=== PATIENT | female | born 1960 | race Two or more races ===

== ENCOUNTER → 2020-08-08 15:16 | Outpatient (BNVA) | payer MEDICARE, MEDICAID, SELFPAY | PROVIDERS: PCP Internal Medicine; Visit Provider Internal Medicine | DX: J44.9 Chronic obstructive pulmonary disease, unspecified (principal); J98.4 Other disorders of lung; R09.02 Hypoxemia; G47.33 Obstructive sleep apnea (adult) (pediatric); E66.9 Obesity, unspecified; Z68.42 Body mass index [BMI] 45.0-49.9, adult; Z79.899 Other long term (current) drug therapy | CPT/HCPCS: 99213 ==

== ENCOUNTER 2020-11-17 14:38 | Outpatient (REF) | payer MEDICARE, MEDICAID, SELFPAY | END 2020-11-17 14:39 | disposition home or self-care (01) | LOC: HO.LAB 14:38 | PROVIDERS: Visit Provider Internal Medicine | DX: Z20.822 Contact with and (suspected) exposure to COVID-19 (principal) | CPT/HCPCS: 36415; C9803; U0003 ==

== ENCOUNTER → 2020-12-12 14:58 | Outpatient (BNVA) | payer MEDICARE, MEDICAID, SELFPAY | PROVIDERS: PCP Internal Medicine; Visit Provider Internal Medicine | DX: J44.9 Chronic obstructive pulmonary disease, unspecified (principal); J98.4 Other disorders of lung; G47.33 Obstructive sleep apnea (adult) (pediatric); R06.02 Shortness of breath; E66.9 Obesity, unspecified; Z68.41 Body mass index [BMI] 40.0-44.9, adult; Z79.899 Other long term (current) drug therapy; Z99.81 Dependence on supplemental oxygen | CPT/HCPCS: 99212 ==

== ENCOUNTER → 2020-12-26 13:26 | Outpatient (REF) | payer MEDICARE, MEDICAID, SELFPAY ==
--- NOTE | 2020-12-26 14:10 | CA_ITS ---
Transthoracic Echocardiogram Patient (Last, First, Middle): Marge Washington D Gender: Female Date of : 1960 Age: 60 Procedure Date: 12/26/2020 Procedure Type: Transthoracic Echocardiogram Location: OP Height: 160.02 cm Weight: 106.6 kg BSA: 2.07 m2 Heart Rate: bpm BP: 128 / 71 mmHg Escapement Matcher: EMANUEL Referring MD: Singh Mccarthy MD Symptoms: I50.9 HEART FAILURE Study Quality: Fair ECG Rhythm: Sinus Conclusions: - The left ventricular systolic function is normal. The visually estimated ejection fraction is between 60-65%. - Evidence suggests grade I (mild) diastolic dysfunction. - The right ventricular systolic pressure is 47 mmHg. Mild pulmonary hypertension is present. Findings Procedure Information Contrast agent, definity, is being given per protocol without apparent complications. Left Ventricle Normal left ventricular cavity size. There is normal left ventricular wall thickness. The left ventricular systolic function is normal. The visually estimated ejection fraction is between 60-65%. There is no evidence of regional wall motion abnormalities. E/E prime ratio is between 8 and 15 consistent with indeterminate filling pressures. Evidence suggests grade I (mild) diastolic dysfunction. Right Ventricle Normal right ventricular cavity size and systolic function. Tricuspid Valve There is mild tricuspid valve regurgitation. The right ventricular systolic pressure is 47 mmHg. Mild pulmonary hypertension is present. Venous The inferior vena cava is normal in size and collapses greater than 50% with inspiration. Prior Study Comparison No prior study available for comparison. Measurements 2D Linear Measurements IVSd: 0.95 0.6-0.9/0.6-1.0 cm LVIDd: 5.46 3.9-5.3/4.2-5.9 cm LVIDd Index: 2.64 2.4-3.2/2.2-3.1 cm/m2 LVIDs: 4.06 2.0-3.6 cm LVPWd: 1.08 0.7-1.1 cm Ao Root: 2.60 2.1-3.5 cm LA Diam: 3.80 2.7-3.8/3.0-4.0 cm LAIDs Index: 1.84 1.5-2.3 cm/m2 LV Mass: 267.37 67-162/88-224 g LV Mass Index: 129.16 43-95/49-115 g/m2 LVOT Diam: 2.20 3.0+(-)1.3 cm 2D Systolic Function EF 4C: 77.00 >55% EF 2C: 62.40 >55% EF BiP: 71.20 >55% Mitral Valve MV Pk E: 1.22 MV PK A: 0.83 MV Decel Time: 121.00 E/A: 1.50 E'Lateral: 9.90 E'Medial: 7.18 E/E' Med: 17.00 E/E' Lat: 12.30 PHT: 36.00 MVA PHT: 6.11 Decel [place]: 10.02 Aortic Valve AoV Pk Fredrick: 1.75 AoV Pk Grad: 12.00 LVOT LVOT Pk Fredrick: 1.37 LVOT Mn Fredrick: 0.87 LVOT VTI: 0.27 LVOT Pk Grad: 8.00 LVOT Mn Grad: 4.00 LVOT Diam: 2.20 LVOT Area: 3.80 Diastolic Function MV Pk E: 1.22 MV Pk A: 0.83 E/A: 1.50 E'Medial: 7.18 E/E' Med: 17.00 E' Laterial: 9.90 E/E' Lat: 12.30 Tricuspid Valve TR Pk Fredrick: 3.29 TR Pk Grad: 43.00 RVSP: 47.00 Great Vessels Aorta Ao Root-2D: 2.60 2.0-3.7 cm Ao Asc: 2.80 2.1-3.4 cm Updated in Other Vendor System with Status of Final Andrés Corrales MD electronically signed on 12/27/2020 4:36:12 PM with status of Final
== END ==
LOC: HO.CARD 13:26
PROVIDERS: Visit Provider Internal Medicine Cardiovascular Disease
DX: I50.9 Heart failure, unspecified (principal)
CPT/HCPCS: 93308; Q9957

== ENCOUNTER 2021-01-22 09:38 | Outpatient (REF) | payer MEDICARE, MEDICAID, SELFPAY ==
[2021-01-22 14:16] LABS: SARS COV2 PCR INHOUSE NEGATIVE (Negative)
== END 2021-01-22 09:39 | disposition home or self-care (01) ==
LOC: HO.LAB 09:38
PROVIDERS: Visit Provider Internal Medicine
DX: Z20.822 Contact with and (suspected) exposure to COVID-19 (principal)
CPT/HCPCS: C9803; U0003

== ENCOUNTER 2021-03-26 11:22 | Outpatient (REF) | payer MEDICARE, MEDICAID, SELFPAY ==
--- NOTE | ~2021-03-26 | MM_ITS ---
EXAMINATION: MM SCREENING DIGITAL BREAST TOMOSYNTHESIS, BILATERAL CLINICAL INFORMATION: Screening. Asymptomatic. The lifetime risk of breast cancer based on the Tyrer-Cuzick Model is 8%. COMPARISON: Mammography: 04/27/2019, 04/30/2017, 09/22/2015 TECHNIQUE: Digital breast tomosynthesis is performed in both the craniocaudal and mediolateral oblique views along with computer-aided detection (CAD). Synthesized 2D images are generated from the tomosynthesis. Additional views are provided: Right CC x2, right MLO, left MLO, left CC x2. FINDINGS: There are scattered areas of fibroglandular density (ACR BI-RADS breast composition Category b). Parenchymal pattern is similar to prior exams. There is no significant mass or architectural abnormality or abnormal calcifications. The axilla and skin contours are unremarkable. There are no significant changes. MM/MM tomosynthesis screening BI IMPRESSION: No mammographic evidence of malignancy. ASSESSMENT: BI-RADS 1: Negative RECOMMENDATION: Routine annual mammography screening. This patient's information was entered into a reminder system with a target due date for their next mammogram.
== END 2021-03-26 11:23 | disposition home or self-care (01) ==
LOC: HO.MAMMO 11:22
PROVIDERS: Visit Provider Internal Medicine
DX: Z12.31 Encounter for screening mammogram for malignant neoplasm of breast (principal)
CPT/HCPCS: 77063; 77067

== ENCOUNTER → 2021-05-14 13:17 | Outpatient (BNVA) | payer MEDICARE, MEDICAID, SELFPAY | PROVIDERS: PCP Internal Medicine; Visit Provider Internal Medicine | DX: E66.9 Obesity, unspecified (principal); G47.33 Obstructive sleep apnea (adult) (pediatric); J44.9 Chronic obstructive pulmonary disease, unspecified; J98.4 Other disorders of lung; R09.02 Hypoxemia | CPT/HCPCS: 99212 ==

== ENCOUNTER → 2021-11-12 14:21 | Outpatient (BNVA) | payer MEDICARE, MEDICAID, SELFPAY | PROVIDERS: PCP Internal Medicine; Visit Provider Internal Medicine | DX: J44.9 Chronic obstructive pulmonary disease, unspecified (principal); J98.4 Other disorders of lung; E66.9 Obesity, unspecified; G47.33 Obstructive sleep apnea (adult) (pediatric); R09.02 Hypoxemia; Z68.41 Body mass index [BMI] 40.0-44.9, adult | CPT/HCPCS: 99212 ==

== ENCOUNTER 2022-04-04 08:57 | Outpatient (REF) | payer MEDICARE, MEDICAID, SELFPAY ==
--- NOTE | ~2022-04-04 | MM_ITS ---
EXAMINATION: MM SCREENING DIGITAL BREAST TOMOSYNTHESIS, BILATERAL CLINICAL INFORMATION: Screening. Asymptomatic. The lifetime risk of breast cancer based on the Tyrer-Cuzick Model is 8%. COMPARISON: Mammography: 03/30/2021, 04/27/2019, 04/30/2017 TECHNIQUE: Digital breast tomosynthesis is performed in both the craniocaudal and mediolateral oblique views along with computer-aided detection (CAD). Synthesized 2D images are generated from the tomosynthesis. Additional bilateral exaggerated CC and bilateral MLO views are provided. FINDINGS: There are scattered areas of fibroglandular density (ACR BI-RADS breast composition Category b). There are no significant masses, abnormal calcifications, or other abnormalities. Background stromal and fibroglandular densities are stable. No developing density or architectural abnormality. No significant changes. MM/MM tomosynthesis screening BI IMPRESSION: No mammographic evidence of malignancy. ASSESSMENT: BI-RADS 2: Benign RECOMMENDATION: Routine annual mammography screening. This patient's information was entered into a reminder system with a target due date for their next mammogram.
[2022-04-04 10:34] LABS: Alanine Aminotransferase 14 U/L (0-31); Aspartate Amino Transferase 17 U/L (5-31); Cholesterol 234 mg/dL; HDL Cholesterol 56 mg/dL; LDL Cholesterol Calculated 161 mg/dl; Triglycerides 88 mg/dL
== END 2022-04-04 08:58 | disposition home or self-care (01) ==
LOC: HO.MAMMO 08:57
PROVIDERS: Absent Provider Internal Medicine Cardiovascular Disease; PCP Internal Medicine; Visit Provider Internal Medicine
DX: Z12.31 Encounter for screening mammogram for malignant neoplasm of breast (principal); E78.5 Hyperlipidemia, unspecified
CPT/HCPCS: 36415; 77063; 77067; 80061; 84450; 84460

== ENCOUNTER 2022-05-13 13:31 | Outpatient (REF) | payer MEDICARE, MEDICAID, SELFPAY ==
[2022-05-13 14:25] LABS: COVID-19 Test Negative (Negative)
== END 2022-05-13 13:32 | disposition home or self-care (01) ==
LOC: HO.LAB 13:31
PROVIDERS: Visit Provider Internal Medicine
DX: Z20.822 Contact with and (suspected) exposure to COVID-19 (principal)
CPT/HCPCS: 87635; 99212; C9803

== ENCOUNTER 2022-10-28 12:07 | Emergency (ER) | payer MEDICARE, MEDICAID, SELFPAY ==
--- NOTE | ~2022-10-28 | XR_ITS ---
EXAMINATION: XR CHEST CLINICAL INFORMATION: Cough. COMPARISON: Chest x-ray 11/03/2018 TECHNIQUE: Frontal portable view of the chest was obtained. 1445 hours FINDINGS: Rounded masslike density in the right upper lung measuring 2.8 cm. Similar-appearing masslike density in the left peripheral mid lung measuring about [address] chest with contrast for further evaluation. Heart size is enlarged and stable since prior study. No pulmonary vascular congestion. No pleural effusion. XR/XR chest 1V IMPRESSION: 1. Masslike densities in both lungs. 2. Cardiomegaly. No pulmonary vascular congestion. No pleural effusion.
[2022-10-28 12:17] VITALS: BP 114/67; BP 116/58; PULSE 60; PULSE 61; RESP 20; TEMP 36.9; O2SAT 82; O2SAT 89; BMI 46.5
[2022-10-28 12:29] VITALS: O2SAT 94
[2022-10-28] MEDS: Benzonatate 100 MG CAPSULE PO (13:05)
[2022-10-28] MEDS: predniSONE 20 MG TABLET 60 MG PO (13:05)
--- NOTE | 2022-10-28 13:12 | ED.ASTHMA ---
HPI - Asthma General Chief Complaint: Upper Respiratory Symptoms Stated Complaint: SOB FROM MD OFFICE PER EMS Time Seen by Provider: 10/28/22 12:53 Source: patient and EMS Mode of arrival: EMS Limitations: no limitations History of Present Illness HPI Narrative: 62-year-old female history of COPD who states she still does smoke at times. Went to her doctor's office for worsening shortness of breath for the past 3 days. Patient found to be in the 80s on room air was given 1 breathing treatment and improved to 99%. On arrival here patient is on 2 L at 99%. Patient denies fevers or chills she states she is not vaccinated for COVID flu. She denies any falls MD complaint: asthma attack , shortness of breath and wheezing Related Data Home Medications Medication Instructions Recorded Confirmed aspirin 81 mg tablet,delayed 81 mg PO DAILY 08/08/20 05/13/22 release cholecalciferol (vitamin D3) 50 50 mcg PO DAILY 08/08/20 05/13/22 mcg (2,000 unit) tablet docusate sodium 100 mg capsule 100 mg PO BID PRN 08/08/20 05/13/22 furosemide 40 mg tablet 120 mg PO DAILY 08/08/20 05/13/22 levothyroxine 100 mcg tablet 100 mcg PO DAILY 08/08/20 05/13/22 paliperidone palmitate 234 mg/1.5 234 mg IM Q28D 08/08/20 05/13/22 mL intramuscular syringe perphenazine 4 mg tablet 4 mg PO DAILY 08/08/20 05/13/22 sertraline 50 mg tablet 50 mg PO DAILY 08/08/20 05/13/22 albuterol sulfate 2.5 mg/3 mL 2.5 mg inhalation Q6H 11/12/21 05/13/22 (0.083 %) solution for nebulization albuterol sulfate 90 mcg/actuation 2 puff inhalation Q4-6H PRN 11/12/21 05/13/22 aerosol inhaler (Ventolin HFA) Shortness Of Breath cyanocobalamin (vitamin B-12) 1 tab DAILY 10/28/22 1,000 mcg tablet (Vitamin B-12) potassium chloride 20 mEq 2 tab PO DAILY 10/28/22 tablet,extended release Previous Rx's Medication Instructions Recorded fluticasone 250 mcg-salmeterol 50 1 inh inhalation BID #60 ea 02/05/22 mcg/dose blistr powdr for inhalation Allergies Allergy/AdvReac Type Severity Reaction Status Date / Time potassium Allergy Unknown Unknown Verified 05/13/22 14:07 Penicillins AdvReac Severe FAINTS Verified 05/13/22 14:07 Review of Systems Review of Systems: Review of systems: General: Patient denies any fever chills recent illness or falls Musculoskeletal: Denies back pain or body aches or other injuries HEENT: denies headache, runny nose, ear pain Respiratory: shortness of breath, cough Cardiovascular: no chest pain or palpitations : denies dysuria, frequency Abdomen: no nausea vomiting denies abdominal pain Extremities: no swelling, no pain Skin: no diaphoresis Yes all other systems are reviewed and are negative PMFSH Past Medical History Medical History COPD (chronic obstructive pulmonary disease) Hypoxemia Obesity FRANKI (obstructive sleep apnea) Restrictive lung disease Surgical History History of cholecystectomy Social History Social History Alcohol intake: never Use of substances other than those prescribed or required for medical reasons: No Advance Directives: No Advance Directives Information Provided: Yes Physical Exam Vital Signs: Vital Signs: Last Vital Signs Temp 98.4 F 10/28/22 12:17 Pulse 61 10/28/22 12:17 Resp 20 10/28/22 12:17 BP 116/58 L 10/28/22 12:17 Pulse Ox 94 10/28/22 12:29 O2 Del Method 10/28/22 12:29 O2 Flow Rate 1 10/28/22 12:29 BMI result Body Mass Index 46.5 General: Well-appearing well-nourished in no signs of distress HEENT: Normocephalic atraumatic Neck: No signs of JVD, no masses no tenderness or lymphadenopathy Cardiovascular: Regular rate and rhythm Respiratory: Wheezing bilaterally Abdomen: Soft nontender no masses Extremities: Normal pedal pulses no signs of edema Skin: Dry warm no rashes Back: No tenderness full ROM Medications Administered Discontinued Medications Generic Name Dose Route Start Last Admin Trade Name Freq PRN Reason Stop Dose Admin Albuterol Sulfate 4 puff 10/28/22 12:57 10/28/22 13:36 Albuterol Sulfate 90 Mcg 8 Gm Inhaler INHALE 10/28/22 12:58 4 puff ONCE ONE Administration Benzonatate 100 mg 10/28/22 12:57 10/28/22 13:05 Benzonatate 100 Mg Capsule PO 10/28/22 12:58 100 mg ONCE ONE Administration Sodium Chloride 1,000 mls @ 999 mls/hr 10/28/22 13:00 10/28/22 13:41 Ns IV 10/28/22 14:00 999 mls/hr .Q1H1M YASH Administration Prednisone 60 mg 10/28/22 12:57 10/28/22 13:05 Prednisone 20 Mg Tablet PO 10/28/22 12:58 60 mg ONCE ONE Administration Medical Decision Making Medical Decision Making [facility] Narrative: Patient here with likely COPD exacerbation given patient's recent treatments and chest x-ray and labs patient already looks much improved after 1 breathing treatment likely noncompliance with her acute oral at home will give another breathing treatment here a chest x-ray and labs. I will swab her for COVID flu and RSV. 1428 Still with significant wheezing she is non compliant with oxygen. She states she is not on oxygen at home. Here she keeps removing it her oxygen is in the 80's when off the oxygen. XR is concerning for a right sided infiltrate I will add on lactic and blood cultures. Patient with obvious infiltrate I will treat for pneumonia with rocephin and doxyclycine. 5852 Page sent to hospitalist about admission 1519 I spoke with Sarah and Dr. Miller will admit. Differential Diagnosis Differential Diagnoses: The differential diagnosis associated with the presentation includes COPD exacerbation Due to viral infection COVID flu RSV or bacterial pneumonia very unlikely to have CHF or PE patient otherwise looks well he has no chest pain or not the patient's workup for ACS Admission/Observation Consideration of admission/observation: Escalation of care including admission/observation considered Consult Healthcare Provider Management of the patient was discussed with: Hospitalist I spoke with Sarah Melchor about admission who agreed patient could be admitted. Lab Data [facility] Lab Attestation statement: I reviewed the patient's lab results. 10/28/22 13:30 10/28/22 13:30 Labs: Lab Results 01/09/23 01/09/23 01/09/23 Range/Units 13:09 13:30 13:30 WBC 5.4 (4.8-10.8) X10*3/uL RBC 4.51 (4.20-5.50) X10*6/uL Hgb 12.8 (12.0-16.0) g/dl Hct 42.6 (37.0-47.0) % MCV 94.5 (80.0-98.0) fL MCH 28.4 (27.0-33.0) pg MCHC 30.0 L (31.0-35.0) g/dl RDW 16.4 H (11.0-16.0) % Plt Count 256 (160-400) X10*3/uL MPV 9.3 L (9.4-12.3) fL Immature Gran % (Auto) 0.2 (0.0-0.4) % Neut % (Auto) 65.4 (45-73) % Lymph % (Auto) 24.0 (20-40) % [place] % (Auto) 9.6 (2-11) % Eos % (Auto) 0.6 (0-4) % Baso % (Auto) 0.2 (0-2) % Lymph # (Auto) 1.3 (1.2-4.9) X10*3/uL [place] # (Auto) 0.5 (0.1-1.2) X10*3/uL Eos # (Auto) 0.0 (0.0-0.4) X10*3/uL Baso # (Auto) 0.0 (0.0-0.2) X10*3/uL Abs Immat Gran (auto) 0.01 (0.00-0.03) X10*3/uL Absolute Neuts (auto) 3.6 (2.0-8.3) x10*3/uL Absolute Nucleated RBC 0.000 (0.0-0.012) X10*3/uL Nucleated RBC % (auto) 0.0 (0.0-0.2) /100WBC B-Natriuretic Peptide 115 H (<100) pg/mL Influenza Type A (PCR) NEGATIVE (Negative) Influenza Type B (PCR) NEGATIVE (Negative) RSV RNA Qual (PCR) NEGATIVE (Negative) SARS-CoV-2 RNA (RT-PCR) NEGATIVE (Negative) Critical Care Time Critical Care Time Critical Care Time: Yes Total Critical Care Time: 35 Attestation: Patient with copd and pneumonia started on antibiotics and admitted to hospitalist service Discharge Plan Discharge Clinical Impression: COPD (chronic obstructive pulmonary disease), Acute exacerbation of chronic obstructive pulmonary disease, Pneumonia, Hypoxia Prescriptions: No Action fluticasone propion-salmeterol 250-50 mcg/dose blister with device 1 inh inhalation BID Qty: 60 3RF cyanocobalamin (vitamin B-12) [Vitamin B-12] 1,000 mcg tablet 1 tab DAILY potassium chloride 20 mEq tablet extended release 2 tab PO DAILY Invega Sustenna 234 mg/1.5 mL syringe 234 mg IM Q28D cholecalciferol (vitamin D3) 50 mcg (2,000 unit) tablet 50 mcg PO DAILY sertraline 50 mg tablet 50 mg PO DAILY levothyroxine 100 mcg tablet 100 mcg PO DAILY docusate sodium 100 mg capsule 100 mg PO BID PRN perphenazine 4 mg tablet 4 mg PO DAILY aspirin 81 mg tablet,delayed release (DR/EC) 81 mg PO DAILY furosemide 40 mg tablet 120 mg PO DAILY albuterol sulfate 2.5 mg /3 mL (0.083 %) solution for nebulization 2.5 mg inhalation Q6H albuterol sulfate [Ventolin HFA] 90 mcg/actuation HFA aerosol inhaler 2 puff inhalation Q4-6H PRN (Reason: Shortness Of Breath)
[2022-10-28] MEDS: Albuterol Sulfate 90 MCG 8 GM INHALER 4 PUFF INHALE ×2 (13:36→15:40)
[2022-10-28] MEDS: 0.9 % Sodium Chloride 1,000 ML 999 ML IV (13:41)
[2022-10-28 13:45] LABS: MANUAL DIFF FLAG NO
[2022-10-28 13:46] LABS: Basophils Percent Auto 0.2 % (0-2); Eosinophils Percent Auto 0.6 % (0-4); Hematocrit 42.6 % (37.0-47.0); Hemoglobin 12.8 g/dl (12.0-16.0); Imm Gran Abs Auto 0.01 X10*3/uL (0.00-0.03); Imm Gran Pct Auto 0.2 % (0.0-0.4); Lymphocytes Absolute Auto 1.3 X10*3/uL (1.2-4.9); Mean Corpuscular Hemoglobin 28.4 pg (27.0-33.0); Mean Corpuscular Volume 94.5 fL (80.0-98.0); Mean Platelet Volume 9.3 fL (9.4-12.3); Monocytes Absolute Auto 0.5 X10*3/uL (0.1-1.2); Monocytes Percent Auto 9.6 % (2-11); Neutrophils Absolute Auto 3.6 x10*3/uL (2.0-8.3); Neutrophils Percent Auto 65.4 % (45-73); Platelet Count 256 X10*3/uL (160-400); Red Blood Count 4.51 X10*6/uL (4.20-5.50); Red Cell Distribution Width 16.4 % (11.0-16.0); White Blood Count 5.4 X10*3/uL (4.8-10.8)
[2022-10-28 14:06] LABS: B Type Natriuretic Peptide 115 pg/mL (<100)
[2022-10-28 14:13] LABS: Influenza A PCR NEGATIVE (Negative); Influenza B PCR NEGATIVE (Negative); Resp Syncy Virus RNA Qual PCR NEGATIVE (Negative); SARS COV2 PCR INHOUSE NEGATIVE (Negative)
--- NOTE | 2022-10-28 14:43 | PC.NURSE ---
Pt refusing redraw of labs
[2022-10-28 15:32] VITALS: BP 111/58; PULSE 59; RESP 19; TEMP 36.8; O2SAT 99
[2022-10-28] MEDS: cefTRIAXone sodium 1 GM in 0.9 % Sodium Chloride 50 ML IV (15:48)
[2022-10-28] MEDS: Doxycycline Monohydrate 100 MG CAPSULE PO (15:48)
[2022-10-28 16:00] LABS: Anion Gap 14 (12-20); Blood Urea Nitrogen 13 mg/dL (9-16); Calcium 9.1 mg/dL (8.4-10.2); Carbon Dioxide 37 mmol/L (22-29); Chloride 92 mmol/L (96-108); Creatinine Clr Calc Pharmacy 87.9; Estimated Glomerular Filt Rate > 60; Glucose Random 136 mg/dL (60-115); Potassium 3.7 mmol/L (3.3-5.1); Sodium 139 mmol/L (135-145)
--- NOTE | 2022-10-28 16:03 | PM.IMHP ---
History of Present Illness Date of Service: 10/28/22 Chief Complaint: Shortness of breath [facility] Medical History COPD (chronic obstructive pulmonary disease) Hypoxemia Obesity FRANKI (obstructive sleep apnea) Restrictive lung disease Surgical History History of cholecystectomy Social History Alcohol intake: never Use of substances other than those prescribed or required for medical reasons: No Advance Directives: No Advance Directives Information Provided: Yes Meds Allergies Allergy/AdvReac Type Severity Reaction Status Date / Time potassium Allergy Unknown Unknown Verified 05/13/22 14:07 Penicillins AdvReac Severe FAINTS Verified 05/13/22 14:07 Active Medications: Current Medications Pharmacy Consult (Consult Rx Perform Med Rec) 1 each MISCELLANE ONCE PRN PRN Reason: Consult order Home Medications Medication Instructions Recorded Confirmed Last Taken Type aspirin 81 mg tablet,delayed 81 mg PO DAILY 08/08/20 10/28/22 Unknown History release cholecalciferol (vitamin D3) 50 50 mcg PO DAILY 08/08/20 10/28/22 Unknown History mcg (2,000 unit) tablet docusate sodium 100 mg capsule 100 mg PO BID PRN Constipation 08/08/20 10/28/22 Unknown History furosemide 40 mg tablet 120 mg PO DAILY 08/08/20 10/28/22 Unknown History levothyroxine 100 mcg tablet 100 mcg PO DAILY@0630 08/08/20 10/28/22 Unknown History paliperidone palmitate 234 mg/1.5 234 mg IM Q28D 08/08/20 10/28/22 Unknown History mL intramuscular syringe perphenazine 4 mg tablet 4 mg PO DAILY 08/08/20 10/28/22 Unknown History sertraline 50 mg tablet 50 mg PO DAILY 08/08/20 10/28/22 Unknown History albuterol sulfate 2.5 mg/3 mL 2.5 mg inhalation Q6H PRN 11/12/21 10/28/22 Unknown History (0.083 %) solution for nebulization Shortness Of Breath albuterol sulfate 90 mcg/actuation 2 puff inhalation Q4-6H PRN 11/12/21 10/28/22 Unknown History aerosol inhaler (Ventolin HFA) Shortness Of Breath cyanocobalamin (vitamin B-12) 1 tab DAILY 10/28/22 10/28/22 Unknown History 1,000 mcg tablet (Vitamin B-12) potassium chloride 20 mEq 2 tab PO DAILY 10/28/22 10/28/22 Unknown History tablet,extended release Physical Exam Vital Signs and Narrative: Vital Signs: Last Vital Signs Temp 98.2 F 10/28/22 15:32 Pulse 59 10/28/22 15:32 Resp 19 10/28/22 15:32 BP 111/58 L 10/28/22 15:32 Pulse Ox 99 10/28/22 15:32 O2 Del Method 10/28/22 15:32 O2 Flow Rate 2 10/28/22 15:32 BMI result Body Mass Index 46.5 Results Labs 10/28/22 13:30 10/28/22 15:27 Labs: Laboratory Results - last 24 hr 10/28/22 10/28/22 10/28/22 13:09 13:30 13:30 MCV 94.5 MCH 28.4 MCHC 30.0 L RDW 16.4 H Plt Count 256 MPV 9.3 L Immature Gran % (Auto) 0.2 Neut % (Auto) 65.4 Lymph % (Auto) 24.0 [place] % (Auto) 9.6 Eos % (Auto) 0.6 Baso % (Auto) 0.2 Lymph # (Auto) 1.3 [place] # (Auto) 0.5 Eos # (Auto) 0.0 Baso # (Auto) 0.0 Abs Immat Gran (auto) 0.01 Absolute Neuts (auto) 3.6 Absolute Nucleated RBC 0.000 Nucleated RBC % (auto) 0.0 Anion Gap Estim Creat Clear Calc Estimated GFR Random Glucose Lactic Acid Calcium B-Natriuretic Peptide 115 H Influenza Type A (PCR) NEGATIVE Influenza Type B (PCR) NEGATIVE RSV RNA Qual (PCR) NEGATIVE SARS-CoV-2 RNA (RT-PCR) NEGATIVE 10/28/22 10/28/22 15:27 15:27 MCV MCH MCHC RDW Plt Count MPV Immature Gran % (Auto) Neut % (Auto) Lymph % (Auto) [place] % (Auto) Eos % (Auto) Baso % (Auto) Lymph # (Auto) [place] # (Auto) Eos # (Auto) Baso # (Auto) Abs Immat Gran (auto) Absolute Neuts (auto) Absolute Nucleated RBC Nucleated RBC % (auto) Anion Gap 14 Estim Creat Clear Calc 87.9 Estimated GFR > 60 Random Glucose 136 H Lactic Acid 1.0 Calcium 9.1 B-Natriuretic Peptide Influenza Type A (PCR) Influenza Type B (PCR) RSV RNA Qual (PCR) SARS-CoV-2 RNA (RT-PCR) Assessment and Plan Time Spent With Patient Time: Total time managing care of this patient today ____ minutes.
--- NOTE | 2022-10-28 17:31 | PC.NURSE ---
Discussed with patient and patients relative the importance of staying in the hospital, all of the risks, including or going home. Patient continued to refuse care after having an O2 of 74% on room air. Although pt wanting to go home AMA, RN expressed importance of using home O2, taking prescribed medication and PRN albuterol inhaler. This RN expressed to pt to return to hospital if she changed her mind about treatment. Pt wheelchaired off unit.
--- NOTE | 2022-10-28 18:27 | PC.NURSE ---
I have served as a language gym attendant for patient and nurse Jaqui.. Patient left with out medical advise after nurse explain risk of leaving with a low 02
== END 2022-10-28 17:37 | disposition left against medical advice (07) ==
PROVIDERS: Emergency Provider Student in an Organized Health Care Education/Training Program
DX: J44.1 Chronic obstructive pulmonary disease with (acute) exacerbation (principal); J18.9 Pneumonia, unspecified organism; R09.02 Hypoxemia; R06.02 Shortness of breath; Z79.899 Other long term (current) drug therapy; Z20.822 Contact with and (suspected) exposure to COVID-19; Z20.828 Contact with and (suspected) exposure to other viral communicable diseases
CPT/HCPCS: 0241U; 36415; 71045; 80048; 83605; 83880; 85025; 87040; 96361; 96374; 99284; J0696

== ENCOUNTER → 2022-10-31 13:16 | Outpatient (BNVA) | payer MEDICARE, MEDICAID, SELFPAY | PROVIDERS: PCP General Practice; Visit Provider Internal Medicine | DX: J44.9 Chronic obstructive pulmonary disease, unspecified (principal); J98.4 Other disorders of lung; R09.02 Hypoxemia; G47.33 Obstructive sleep apnea (adult) (pediatric); E66.01 Morbid (severe) obesity due to excess calories; Z68.42 Body mass index [BMI] 45.0-49.9, adult; Z79.899 Other long term (current) drug therapy | CPT/HCPCS: 99212 ==

== ENCOUNTER 2022-11-29 15:45 | Outpatient (REF) | payer MEDICARE, MEDICAID, SELFPAY ==
--- NOTE | ~2022-11-29 | XR_ITS ---
EXAMINATION: XR CHEST CLINICAL INFORMATION: Hypoxia COMPARISON: Chest radiograph 10/28/2022 TECHNIQUE: 2 views of the chest were obtained. FINDINGS: The heart is enlarged and the david are prominent, particularly on the right which may be secondary to pulmonary vascular congestion or adenopathy.. Again, there are masslike opacities in the lateral aspect of the right upper lung zone/right lower lobe and likely left upper lobe. There is a small layering left pleural effusion with basilar atelectasis and probable trace fluid on the right as well. XR/XR chest 2V IMPRESSION: Cardiomegaly and probable pulmonary vascular congestion. Small left pleural effusion. There are again bilateral masslike opacities within the right upper and left upper lobes with asymmetrically increased prominence of the right hilum which may be secondary to adenopathy. Further evaluation with CT is recommended.
== END 2022-11-29 15:46 | disposition home or self-care (01) ==
LOC: HO.XRAY 15:45
PROVIDERS: PCP General Practice; Visit Provider General Practice
DX: R09.02 Hypoxemia (principal)
CPT/HCPCS: 71046

== ENCOUNTER 2022-12-06 14:54 | Outpatient (REF) | payer MEDICARE, MEDICAID, SELFPAY ==
--- NOTE | ~2022-12-06 | CT_ITS ---
EXAMINATION: CT CHEST WITHOUT CONTRAST CLINICAL INFORMATION: Follow-up opacities seen on chest x-ray COMPARISON: Previous chest x-ray 12/06/2022 and chest CTA 05/19/2017 TECHNIQUE: Multidetector volumetric CT imaging of the chest was done. Axial MIP volume rendering provided. Sagittal and coronal reformatted images were obtained. This CT examination was performed using dose optimization techniques as appropriate, variously including the following: *Automated exposure control *Adjustment of mA and/or kV according to patient size (this includes techniques or standardized protocols for targeted exams where dose is matched to indication/reason for exam; i.e. extremities or head) *Use of iterative reconstruction technique DLP: 473 mGy-cm FINDINGS: LUNGS: There are bilateral pulmonary nodules/masses. These measure 2.7 cm in the right upper lobe, 4.0 cm in the left upper lobe, and 2.7 cm in the right lower lobe. A 3.3 cm infrahilar right lower lobe nodule, axial image 34 series 3. MEDIASTINUM: Bilateral hilar and mediastinal lymphadenopathy. Hilar adenopathy is difficult to evaluate without IV contrast. Larger lymph nodes appear upper normal in size. Slightly enlarged heart. No pericardial effusion. Minimal coronary artery calcification. Normal caliber thoracic aorta. Prominent pulmonary arteries, main pulmonary artery measuring 3.6 cm. CORONARY ARTERY CALCIFICATION: None visualized on this study. PLEURA: There is no pleural effusion. No pleural mass or thickening. AXILLA: Small bilateral axillary lymph nodes. No enlarged axillary lymph nodes or chest wall mass seen. UPPER ABDOMEN: Unremarkable. OSSEOUS STRUCTURES: Degenerative changes of the spine. CT/CT chest wo IV con IMPRESSION: Bilateral pulmonary nodules/masses. Neoplastic, infectious and inflammatory processes should be considered. This would be amenable to percutaneous biopsy if clinically indicated. Fleischner guidelines were followed. Findings will be communicated by the [place] work flow premix operator concentrate.
== END 2022-12-06 14:55 | disposition home or self-care (01) ==
LOC: HO.CT 14:54
PROVIDERS: PCP General Practice; Visit Provider General Practice
DX: R91.8 Other nonspecific abnormal finding of lung field (principal)
CPT/HCPCS: 71250

== ENCOUNTER → 2022-12-16 15:52 | Outpatient (BNVA) | payer MEDICARE, MEDICAID, SELFPAY | PROVIDERS: PCP General Practice; Visit Provider Internal Medicine | DX: G47.33 Obstructive sleep apnea (adult) (pediatric) (principal); J44.9 Chronic obstructive pulmonary disease, unspecified; J18.9 Pneumonia, unspecified organism; J98.4 Other disorders of lung; R09.02 Hypoxemia; E66.9 Obesity, unspecified; Z68.42 Body mass index [BMI] 45.0-49.9, adult | CPT/HCPCS: 99212 ==

== ENCOUNTER 2022-12-26 07:55 | Day surgery (SDC) | payer MEDICARE, MEDICAID, SELFPAY ==
--- NOTE | 2022-12-25 10:27 | HO.ANESPROP2 ---
Documented by User: Ofe Pelletier NP 12/25/22 10:30 HPI - Anesthesia Eval Consult details Narrative: 62yo F for Bronchoscopy Fiberoptic PMFSH Active Problems Active Problems: All Active Problems (Updated 12/16/22 @ 17:01 by Michael Oneill MD) Pneumonia (Acute) Hypoxemia (Acute) Restrictive lung disease (Acute) COPD (chronic obstructive pulmonary disease) (Acute) FRANKI (obstructive sleep apnea) (Acute) Obesity (Acute) Past Medical History Medical History (Updated 12/16/22 @ 17:01 by Michael Oneill MD) COPD (chronic obstructive pulmonary disease) Hypoxemia Obesity FRANKI (obstructive sleep apnea) Pneumonia Restrictive lung disease Surgical History Surgical History History of cholecystectomy Social History Social History Alcohol intake: never Patient Tobacco Use Status: Never used Tobacco Use of substances other than those prescribed or required for medical reasons: No Are you DNR?: No Advance Directives: No Advance Directives Information Provided: Yes Meds Allergies Allergy/AdvReac Type Severity Reaction Status Date / Time potassium Allergy Unknown Unknown Verified 12/26/22 08:55 Penicillins AdvReac Severe FAINTS Verified 12/26/22 08:55 Home Medications Medication Instructions Recorded Confirmed Last Taken Type aspirin 81 mg tablet,delayed 81 mg PO DAILY 08/08/20 12/26/22 12/26/22 History release cholecalciferol (vitamin D3) 50 50 mcg PO DAILY 08/08/20 12/26/22 12/26/22 History mcg (2,000 unit) tablet docusate sodium 100 mg capsule 100 mg PO BID PRN Constipation 08/08/20 12/26/22 Unknown History furosemide 40 mg tablet 120 mg PO DAILY 08/08/20 12/26/22 12/26/22 History levothyroxine 100 mcg tablet 100 mcg PO DAILY@0630 08/08/20 12/26/22 12/26/22 History paliperidone palmitate 234 mg/1.5 234 mg IM Q28D 08/08/20 12/26/22 Unknown History mL intramuscular syringe perphenazine 4 mg tablet 4 mg PO DAILY 08/08/20 12/26/22 12/26/22 History sertraline 50 mg tablet 50 mg PO DAILY 08/08/20 12/26/22 12/26/22 History albuterol sulfate 2.5 mg/3 mL 2.5 mg inhalation Q6H PRN 11/12/21 12/26/22 Unknown History (0.083 %) solution for nebulization Shortness Of Breath albuterol sulfate 90 mcg/actuation 2 puff inhalation Q4-6H PRN 11/12/21 12/26/22 12/26/22 History aerosol inhaler (Ventolin HFA) Shortness Of Breath cyanocobalamin (vitamin B-12) 1 tab DAILY 10/28/22 12/26/22 12/26/22 History 1,000 mcg tablet (Vitamin B-12) potassium chloride 20 mEq 2 tab PO DAILY 10/28/22 12/26/22 12/26/22 History tablet,extended release loratadine 10 mg tablet (Loradamed) 10 mg PO DAILY 12/16/22 12/26/22 12/26/22 History Exam Exam Date and Time: December 25, 2022 1027 Pertinent Lab Results Pertinent Lab Results: Laboratory Tests 10/28/22 10/28/22 13:30 15:27 WBC 5.4 Hgb 12.8 Hct 42.6 Plt Count 256 Sodium 139 Potassium 3.7 Chloride 92 L Carbon Dioxide 37 H BUN 13 Creatinine 0.72 Narrative Narrative: ECHO 2020 Conclusions: - The left ventricular systolic function is normal.? The visually estimated ejection fraction is between 60-65%. ? - Evidence suggests grade I (mild) diastolic dysfunction.? - The right ventricular systolic pressure is 47 mmHg.? Mild? ? ? pulmonary hypertension is present. ? ?? Assessment and Plan Assessment Anesthesia Assessment: Chart Reviewed Documented by User: Tova Kidd MD 12/26/22 09:27 [facility] Past Medical History Medical History (Updated 12/16/22 @ 17:01 by Michael Oneill MD) COPD (chronic obstructive pulmonary disease) Hypoxemia Obesity FRANKI (obstructive sleep apnea) Pneumonia Restrictive lung disease Family History Family history of problems with anesthesia: No Surgical History Surgical History History of cholecystectomy History of Problems with Anesthesia: No Social History Social History Alcohol intake: never Patient Tobacco Use Status: Never used Tobacco Use of substances other than those prescribed or required for medical reasons: No Are you DNR?: No Advance Directives: No Advance Directives Information Provided: Yes Meds Allergies Allergy/AdvReac Type Severity Reaction Status Date / Time potassium Allergy Unknown Unknown Verified 12/26/22 08:55 Penicillins AdvReac Severe FAINTS Verified 12/26/22 08:55 Home Medications Medication Instructions Recorded Confirmed Last Taken Type aspirin 81 mg tablet,delayed 81 mg PO DAILY 08/08/20 12/26/22 12/26/22 History release cholecalciferol (vitamin D3) 50 50 mcg PO DAILY 08/08/20 12/26/22 12/26/22 History mcg (2,000 unit) tablet docusate sodium 100 mg capsule 100 mg PO BID PRN Constipation 08/08/20 12/26/22 Unknown History furosemide 40 mg tablet 120 mg PO DAILY 08/08/20 12/26/22 12/26/22 History levothyroxine 100 mcg tablet 100 mcg PO DAILY@0630 08/08/20 12/26/22 12/26/22 History paliperidone palmitate 234 mg/1.5 234 mg IM Q28D 08/08/20 12/26/22 Unknown History mL intramuscular syringe perphenazine 4 mg tablet 4 mg PO DAILY 08/08/20 12/26/22 12/26/22 History sertraline 50 mg tablet 50 mg PO DAILY 08/08/20 12/26/22 12/26/22 History albuterol sulfate 2.5 mg/3 mL 2.5 mg inhalation Q6H PRN 11/12/21 12/26/22 Unknown History (0.083 %) solution for nebulization Shortness Of Breath albuterol sulfate 90 mcg/actuation 2 puff inhalation Q4-6H PRN 11/12/21 12/26/22 12/26/22 History aerosol inhaler (Ventolin HFA) Shortness Of Breath cyanocobalamin (vitamin B-12) 1 tab DAILY 10/28/22 12/26/22 12/26/22 History 1,000 mcg tablet (Vitamin B-12) potassium chloride 20 mEq 2 tab PO DAILY 10/28/22 12/26/22 12/26/22 History tablet,extended release loratadine 10 mg tablet (Loradamed) 10 mg PO DAILY 12/16/22 12/26/22 12/26/22 History Exam Airway Mallampati Class: II TM Dist: >3cm Neck ROM: Full Denture: Upper and Lower Heart: rr Lungs: wheezing Assessment and Plan Final Anesthetic Review Family History of Problems with Anesthesia: No History of Problems with Anesthesia: No NPO: Yes ASA Class: II Final Preanesthetic Review: No Changes in Pt Med Stat, Meds/Allgs Chart Reviewed, Consent Obtained/Reviewed and Anes Risks/Benef Reviewed Patient Risk: High Procedure Risk: Intermediate Anesthetic Plan Anesthetic Plan: GA Disposition: Standard PACU
[2022-12-26] VITALS (24 sets, daily range): BP systolic 101–147; BP diastolic 53–94; PULSE 73–103; RESP 16–22; TEMP 36.2–36.6; O2SAT 91–97; BMI 43.4
--- NOTE | ~2022-12-26 | XR_ITS ---
EXAMINATION: XR CHEST CLINICAL INFORMATION: Biopsies. COMPARISON: CT chest 12/06/2022. TECHNIQUE: Frontal view of the chest was obtained. FINDINGS: There are bilateral pulmonary nodules largest in the left midlung. There is a right infrahilar soft tissue density likely nodules as well. Rest of the lungs are clear and expanded. The heart size and pulmonary vascularity are normal. No gross bony abnormality seen. XR/XR chest 1V IMPRESSION: 1. Bilateral pulmonary nodules. No acute pneumonic process seen. 2. Recommend follow-up CT chest with contrast.
[2022-12-26] MEDS: Lactated Ringers 1,000 ML 100 ML IVCONT (09:07)
--- NOTE | 2022-12-26 09:24 | MHC.SHP ---
Pre-Procedural Eval Section A Date of Service: 12/26/22 The patient is an INPATIENT: No The History & Physical has been completed within 30 days and I have reviewed it.: No Section B Chief Complaint: Pneumonia, unspecified organism Relevant Family History (Specify if Yes): No Relevant Social History: None Present Medications: see Short Stay Collaborative assessment Medical History: Significant History History of Previous Operations: No relevant previous surgery Allergies: Allergies Allergy/AdvReac Type Severity Reaction Status Date / Time potassium Allergy Unknown Unknown Verified 12/26/22 08:55 Penicillins AdvReac Severe FAINTS Verified 12/26/22 08:55 Review of Systems Sugical H&P ROS: Negative: Constitution, Cardiovascular, Neurological, Psychiatric, Hem-Onc, Allergic/Immunologic, Gastrointestinal, Genitourinary, Musculoskeletal, Integumentary, Endocrine and Eyes/Ears/Nose/Throat and Yes, Specify: Respiratory (cough, dyspnea) Exam Surgical H&P Exam: Normal: HEENT, Normal: Heart, Normal: Extremities, Normal: Abdomen, Normal: Skin and Normal: Neurological and Significant Findings: Lungs (wheezing) Plan Diagnosis/Plan: Unchanged I have reviewed the history and physical and performed a pertinent physical examination on my patient. No changes have occurred unless specified. Time Spent With Patient Time: Total time managing care of this patient today 15_ minutes.
[2022-12-26] MEDS: Albuterol Sulfate (0.083%) 2.5 MG/3 ML VIAL.NEB INHALE (09:26)
[2022-12-26 10:41] LABS: Glucose, Whole Blood 155 mg/dL (60-115)
[2022-12-26] MEDS: methylPREDNISolone Sod Succ 125 MG/2 ML VIAL IVPUSH (10:43)
--- NOTE | 2022-12-27 12:47 | PM.OP ---
Brief Operative Note Date of Service: 12/26/22 Pre-op diagnosis: pulmonary nodules Post-op diagnosis: other (pulmonary nodules, bronchitis, bronchomalecia) Procedure: Bronchosocpy with washings, brushings and RLL transbronchial biopsies Surgeon: Marquez Melchor MD Anesthesia: GLMA Was an Publications Sales Representative used for this Procedure?: No Estimated blood loss (mL): 5 Pathology: other (RLL transbronchial biopsies) Condition: stable Disposition: same day
--- NOTE | 2022-12-27 16:02 | OP_ITS ---
SURGEON: Marquez Melchor MD PREOPERATIVE DIAGNOSIS: POSTOPERATIVE DIAGNOSIS: PROCEDURE PERFORMED: Bronchoscopy with washings, brushings and transbronchial biopsies. ESTIMATED BLOOD LOSS: COMPLICATIONS: None. ANESTHESIA: LMA. ASSISTANTS: SPECIMENS: ASA CLASSIFICATION: 3. PREOPERATIVE DIAGNOSES: Pulmonary nodules and pneumonia. POSTOPERATIVE DIAGNOSES: Pulmonary nodules, bronchitis, and bronchomalacia. INTERPRETATION: 1. Successful transbronchial biopsies of the right lower lobe. 2. Brushings of the left upper lobe and also the right upper lobe for cytology. 3. Bilateral washings for cytology and microbiology. COMMERCIAL LOAN REVIEWER: None. DESCRIPTION OF PROCEDURE: After the patient was adequately sedated, LMA in place, flexible digital bronchoscope was inserted by LMA to level of the larynx. Vocal cord most symmetrically to the midline without any lesions or masses. After instilling additional lidocaine, the bronchoscope was then passed to vocal cords to the level of the trachea. Trachea appeared to be patent. After instilling additional lidocaine, the bronchoscope was then navigated to the entire tracheobronchial tree, which was examined up to the subsegmental level. The patient did have some evidence of significant bronchomalacia resulting some collapsibility of the airways, in addition to that her mucosa was very erythematous, consistent with significant bronchitis and friability with some bleeding with minimal instrumentation. No endobronchial lesions or masses noted anywhere. The bronchoscope was navigated to the level of the left below the lingula where cytologic brushes introduced into that area. The cytology brush was then sent to Cytology from further analysis. Next, the bronchoscope was navigated to the posterior segment of the right upper lobe where another cytologic brush was introduced where she has other abnormality. The cytologic brushings were sent to the appropriate locations. Next, the bronchoscope was navigated to the right lower lobe using forceps transbronchial biopsies were collected from the right lower lobe posterior segment. The patient did have some bleeding while she getting the biopsies and she desaturated down to about 83%. The patient has significant comorbidities and has very friable mucosa with a lot of bronchomalacia and she is obese and since we having some difficulty tolerating the anesthesia, therefore, since we collected the biopsies, the brushings and we have bilateral washings, decided to stop the procedure. Probably we would have liked to do additional biopsies, but at this point in view of her decompensated status, opted stopping the procedure. The bronchoscope was then removed. I did give her half an ampule of epinephrine for hemostasis. The total endoscopic time was approximately 15 minutes. Again, the patient tolerated the procedure initially, but then she became hypoxic, and we terminated the procedure. After the LMA was removed, the patient had suctioning of some frothy bloody secretions, but that cleared up. She initially did not show up on her oxygen to the hospital, she was hypoxic, so therefore afterwards, her sister bring her oxygen. She did have to use additional oxygen in order to go home to keep that oxygen pulse ox above 88%. Postop chest x-ray was good. MD LULÚ Sosa/JERO / [id number]
== END 2022-12-26 15:37 | disposition home or self-care (01) ==
PROVIDERS: PCP General Practice; Visit Provider Hospitalist
PROC: 0BJ08ZZ Inspection of Tracheobronchial Tree, Via Natural or Artificial Opening Endoscopic (ICD-10-PCS; CPT 31622; principal; 2022-12-26 09:30)
DX: J98.4 Other disorders of lung (principal); J18.9 Pneumonia, unspecified organism; J40 Bronchitis, not specified as acute or chronic; J98.09 Other diseases of bronchus, not elsewhere classified; R91.8 Other nonspecific abnormal finding of lung field; J44.9 Chronic obstructive pulmonary disease, unspecified; G47.36 Sleep related hypoventilation in conditions classified elsewhere; G47.33 Obstructive sleep apnea (adult) (pediatric); F20.9 Schizophrenia, unspecified; E66.01 Morbid (severe) obesity due to excess calories; Z68.42 Body mass index [BMI] 45.0-49.9, adult; Z99.81 Dependence on supplemental oxygen; Z79.51 Long term (current) use of inhaled steroids; Z79.82 Long term (current) use of aspirin; Z88.0 Allergy status to penicillin; R09.02 Hypoxemia
CPT/HCPCS: 31628; 31623; 71045; 82947; 87070; 87102; 87106; 87116; 87205; 87206; 88112; 88305; J2930

== ENCOUNTER → 2023-01-06 09:04 | Outpatient (REF) | payer MEDICARE, MEDICAID, SELFPAY ==
--- NOTE | 2023-01-06 09:12 | ECG_ITS ---
Test Reason : COPD Blood Pressure : / mmHG Vent. Rate : 063 BPM Atrial Rate : 063 BPM P-R Int : 218 ms QRS Dur : 070 ms QT Int : 384 ms P-R-T Axes : 027 058 067 degrees QTc Int : 392 ms Sinus rhythm with 1st degree A-V block Low voltage QRS Borderline ECG When compared with ECG of 17-DEC-2019 23:12, No significant change was found Referred By: Marquez Melchor Electronically Signed By:XOCHITL WADSWORTH MD
== END ==
LOC: HO.CARD 09:04
PROVIDERS: Visit Provider Hospitalist
DX: J44.9 Chronic obstructive pulmonary disease, unspecified (principal)
CPT/HCPCS: 93005

== ENCOUNTER → 2023-01-15 09:40 | Outpatient (BNVA) | payer MEDICARE, MEDICAID, SELFPAY | PROVIDERS: PCP Internal Medicine; Visit Provider Internal Medicine | DX: G47.33 Obstructive sleep apnea (adult) (pediatric) (principal); J44.9 Chronic obstructive pulmonary disease, unspecified; J98.4 Other disorders of lung; J18.9 Pneumonia, unspecified organism; R09.02 Hypoxemia; E66.9 Obesity, unspecified; Z68.41 Body mass index [BMI] 40.0-44.9, adult | CPT/HCPCS: 99212 ==

== ENCOUNTER 2023-01-23 08:59 | Emergency (ER) | payer MEDICARE, MEDICAID, SELFPAY ==
--- NOTE | ~2023-01-23 | CT_ITS ---
EXAMINATION: CT HEAD W/O IV CONTRAST CT FACIAL BONES WITHOUT IV CONTRAST CLINICAL INFORMATION: History of trauma left orbital region, head injury. COMPARISON: Head CT from 08/19/2018 TECHNIQUE: Head - Contiguous axial imaging of the head was performed from the skull base to the vertex without the administration of intravenous contrast, and axial images are reconstructed at 2 mm and 5 mm slice thickness. Facial bones - Volumetric, helical CT acquisition of the facial bones obtained without contrast; in addition to the standard set of axial images, multiplanar reformatted images were provided in the coronal and sagittal imaging planes. This CT examination was performed using dose optimization techniques as appropriate, variously including the following: *Automated exposure control *Adjustment of mA and/or kV according to patient size (this includes techniques or standardized protocols for targeted exams where dose is matched to indication/reason for exam; i.e. extremities or head) *Use of iterative reconstruction technique DLP: 1185 mGy-cm (total) FINDINGS: HEAD: No acute findings compared to 08/19/2018. No evidence of intracranial hemorrhage, major vascular territory infarction, focal mass effect or midline shift. Rodney to white matter differentiation is preserved. The small area of chronic hypoattenuation in deep white matter adjacent to the right frontal horn is unchanged compared to 08/19/2018 and could be sequela of an old minor infarction or chronic small vessel ischemia. The sulci and basilar cisterns are unremarkable. The ventricles have normal size and configuration. No hydrocephalus or extra-axial fluid collections. The calvarium is intact and the mastoid air cells and middle ear cavities are clear. There is hyperostosis frontalis interna. FACIAL BONES: There is posttraumatic left periorbital soft tissue swelling. The globes and orbital conti, including lamina papyracea, are intact. The orbital apex, optic canals, and retrobulbar fat planes are normal. The maxilla, mandible and temporomandibular joints are intact. Nasal bones, pterygoid plates and zygomatic arches are normal. Mild mucosal thickening of the right maxillary sinus, inferior frontal sinus and anterior ethmoid air cells. The ostiomeatal units are patent. No air-fluid levels in the paranasal sinuses. CT/CT facial bones wo IV con IMPRESSION: * No intracranial hemorrhage or other acute intracranial pathology. * No evidence of maxillofacial bone injury. * Left periorbital soft tissue swelling without orbital fracture. * Incidentally noted is mild mucosal thickening of frontal, anterior ethmoid and right maxillary sinuses without air-fluid levels of the paranasal sinuses.
[2023-01-23 09:01] VITALS: BP 131/69; PULSE 83; RESP 18; TEMP 36.7; O2SAT 98; BMI 34.3
--- NOTE | 2023-01-23 09:52 | ED.GENADULT ---
HPI - General Adult General Chief complaint: Fall Stated complaint: fall eye inj Time Seen by Provider: 01/23/23 09:45 Source: patient and family Limitations: no limitations History of Present Illness HPI narrative: 62-year-old female who presents from home after falling in her bedroom this morning. Family and patient states she tripped and fell onto the floor injuring her left side of her face and bruising around her left eye. Patient family deny loss of consciousness states she is on no blood thinners but is on aspirin daily. Patient has longstanding history of COPD, obstructive sleep apnea history of pneumonia in the past. Patient family states no other pain. No vision changes. And that the pain is mostly above the left eye. Patient denies nausea vomiting fever chills chest pain or shortness of breath. Pain 03/29 Related Data Home Medications Medication Instructions Recorded Confirmed aspirin 81 mg tablet,delayed 81 mg PO DAILY 08/08/20 12/26/22 release cholecalciferol (vitamin D3) 50 50 mcg PO DAILY 08/08/20 12/26/22 mcg (2,000 unit) tablet docusate sodium 100 mg capsule 100 mg PO BID PRN Constipation 08/08/20 12/26/22 furosemide 40 mg tablet 120 mg PO DAILY 08/08/20 12/26/22 levothyroxine 100 mcg tablet 100 mcg PO DAILY@0630 08/08/20 12/26/22 paliperidone palmitate 234 mg/1.5 234 mg IM Q28D 08/08/20 12/26/22 mL intramuscular syringe perphenazine 4 mg tablet 4 mg PO DAILY 08/08/20 12/26/22 sertraline 50 mg tablet 50 mg PO DAILY 08/08/20 12/26/22 albuterol sulfate 2.5 mg/3 mL 2.5 mg inhalation Q6H PRN 11/12/21 12/26/22 (0.083 %) solution for nebulization Shortness Of Breath albuterol sulfate 90 mcg/actuation 2 puff inhalation Q4-6H PRN 11/12/21 12/26/22 aerosol inhaler (Ventolin HFA) Shortness Of Breath cyanocobalamin (vitamin B-12) 1 tab DAILY 10/28/22 12/26/22 1,000 mcg tablet (Vitamin B-12) potassium chloride 20 mEq 2 tab PO DAILY 10/28/22 12/26/22 tablet,extended release loratadine 10 mg tablet (Loradamed) 10 mg PO DAILY 12/16/22 12/26/22 Previous Rx's Medication Instructions Recorded fluticasone 250 mcg-salmeterol 50 1 inh inhalation BID #60 ea 02/05/22 mcg/dose blistr powdr for inhalation fluconazole 100 mg tablet 100 mg PO DAILY 10 days #10 tabs 01/02/23 (Diflucan) Allergies Allergy/AdvReac Type Severity Reaction Status Date / Time potassium Allergy Unknown Unknown Verified 01/15/23 10:04 Penicillins AdvReac Severe FAINTS Verified 01/15/23 10:04 Review of Systems Review of Systems: Constitutional : no fever no chills ENT/Mouth : denies sore throat no nasal pain Eyes: pain around left orbit, no vision changes Cardiovascular : No Chest Pain, No SOB, No Dyspnea on Exertion, No Orthopnea, No Edema, No Palpitations Respiratory : No Cough, No Sputum, No Wheezing, No Smoke Exposure, No Dyspnea Gastrointestinal : No Nausea, No Vomiting, No Diarrhea, No Constipation, No abdominal Pain Genitourinary : no dysuria, no frequency Musculoskeletal : No joint pain, No Myalgias, No Joint SwellingSkin : No Skin Lesions, No rash Neuro : denies headache, denies loss of consciousness denies weakness denies dizziness Psych : No Anxiety/Panic, No Depression Heme/Lymph: No Bruising, No Bleeding,No Lymphadenopathy PMFSH Past Medical History Medical History COPD (chronic obstructive pulmonary disease) Hypoxemia Obesity FRANKI (obstructive sleep apnea) Pneumonia Restrictive lung disease Surgical History History of cholecystectomy Social History Social History Alcohol intake: never Patient Tobacco Use Status: Never used Tobacco Advance Directives: No Physical Exam ED Vital Signs: Vital Signs - 24 hr 01/23/23 09:01 Temperature 98.1 F Pulse Rate 83 Respiratory Rate 18 Blood Pressure 131/69 Pulse Oximetry 98 Oxygen Delivery Method Room Air BMI result Body Mass Index 34.3 vital signs have been reviewed as normal and appeared to be correct. Blood pressure normal. Heart rate normal. Respiration rate normal. Temperature normal. Oxygen saturation normal. Appearance: Alert. Oriented X3. No acute distress. Head: Normal external exam. Normocephalic. Atraumatic. ecchymosis noted around the left orbit Eyes: PERRLA. EOMI. no sign of entrapment positive tenderness left orbit ENT: Pharynx normal. Uvula midline. Moist mucous membranes. Neck: Soft full range of motion, no midline tenderness CVS: Heart regular rate and rhythm no murmurs and rubs Respiratory: breath sounds slightly diminished Abdomen: Soft nontender no rebound or guarding positive bowel sounds Back: No CVA tenderness. Full range of motion noted. Skin: skin is warm and dry. Marked ecchymosis around the left orbit Extremities: No lower extremity edema. Extremities exhibit normal range of motion. Extremities nontender. Neuro: Oriented X 3. No motor deficit. No sensory deficit. Reflexes normal. Course Course Course Narrative: Closed head injury Subarachnoid hemorrhage Left orbital fracture Facial fracture Concussion 62-year-old female status post mechanical fall at home in her bedroom. Family patient denied loss of consciousness positive tenderness right on the left orbit patient is without headache at this time. Patient denies nausea vomiting dizziness. Patient has no other complaints at this time CT scan of the head and facial bones is pending. 13:12 FINDINGS: HEAD: No acute findings compared to 08/19/2018. No evidence of intracranial hemorrhage, major vascular territory infarction, focal mass effect or midline shift. Rodney to white matter differentiation is preserved. The small area of chronic hypoattenuation in deep white matter adjacent to the right frontal horn is unchanged compared to 08/19/2018 and could be sequela of an old minor infarction or chronic small vessel ischemia. The sulci and basilar cisterns are unremarkable. The ventricles have normal size and configuration. No hydrocephalus or extra-axial fluid collections. The calvarium is intact and the mastoid air cells and middle ear cavities are clear. There is hyperostosis frontalis interna. FACIAL BONES: There is posttraumatic left periorbital soft tissue swelling. The globes and orbital conti, including lamina papyracea, are intact. The orbital apex, optic canals, and retrobulbar fat planes are normal. The maxilla, mandible and temporomandibular joints are intact. Nasal bones, pterygoid plates and zygomatic arches are normal. Mild mucosal thickening of the right maxillary sinus, inferior frontal sinus and anterior ethmoid air cells. The ostiomeatal units are patent. No air-fluid levels in the paranasal sinuses. CT/CT facial bones wo IV con IMPRESSION: *? No intracranial hemorrhage or other acute intracranial pathology. *? No evidence of maxillofacial bone injury. *? Left periorbital soft tissue swelling without orbital fracture. *? Incidentally noted is mild mucosal thickening of frontal, anterior ethmoid and right maxillary sinuses without air-fluid levels of the paranasal sinuses. ? ? Dictated By: Cyrus Renteria MD Signed By: <Electronically signed by Cyrus Renteria MD in OV> 13:12 patient is ambulatory without ataxia and no focal findings on neuro exam CT scan of the head facial bones is negative Discharge Plan Discharge Clinical Impression: Contusion of left orbit, Head injury due to trauma Patient Disposition: Home, Self-Care Instructions: Head Injury (ED), Contusion in Adults (ED) Additional Instructions: CT scan of the head and facial bones are negative for any fractures or intracranial injuries Return if increased headache nausea vomiting or dizziness ice to the area of swelling Prescriptions: No Action fluticasone propion-salmeterol 250-50 mcg/dose blister with device 1 inh inhalation BID Qty: 60 3RF fluconazole [Diflucan] 100 mg tablet 100 mg PO DAILY 10 Days Qty: 10 0RF cyanocobalamin (vitamin B-12) [Vitamin B-12] 1,000 mcg tablet 1 tab DAILY potassium chloride 20 mEq tablet extended release 2 tab PO DAILY Invega Sustenna 234 mg/1.5 mL syringe 234 mg IM Q28D cholecalciferol (vitamin D3) 50 mcg (2,000 unit) tablet 50 mcg PO DAILY sertraline 50 mg tablet 50 mg PO DAILY levothyroxine 100 mcg tablet 100 mcg PO DAILY@0630 docusate sodium 100 mg capsule 100 mg PO BID PRN (Reason: Constipation) perphenazine 4 mg tablet 4 mg PO DAILY aspirin 81 mg tablet,delayed release (DR/EC) 81 mg PO DAILY furosemide 40 mg tablet 120 mg PO DAILY albuterol sulfate 2.5 mg /3 mL (0.083 %) solution for nebulization 2.5 mg inhalation Q6H PRN (Reason: Shortness Of Breath) albuterol sulfate [Ventolin HFA] 90 mcg/actuation HFA aerosol inhaler 2 puff inhalation Q4-6H PRN (Reason: Shortness Of Breath) loratadine [Loradamed] 10 mg tablet 10 mg PO DAILY Print Language: Hungarian
--- NOTE | 2023-01-23 10:19 | PC.NURSE ---
PT AWAKE AND ALERT STEADY GAIT WITH HEMATOMA LEFT EYE UNCHANGED AWAITING CT SCAN
== END 2023-01-23 13:33 | disposition home or self-care (01) ==
PROVIDERS: Emergency Provider Emergency Medicine; PCP Internal Medicine
DX: S00.12XA Contusion of left eyelid and periocular area, initial encounter (principal); R51.9 Headache, unspecified; M54.2 Cervicalgia; W06.XXXA Fall from bed, initial encounter; Y93.9 Activity, unspecified; Y92.009 Unspecified place in unspecified non-institutional (private) residence as the place of occurrence of the external cause; Y99.9 Unspecified external cause status; Z79.899 Other long term (current) drug therapy
CPT/HCPCS: 70450; 70486; 99282; 99284

== ENCOUNTER 2023-02-20 09:23 | Outpatient (REF) | payer MEDICARE, MEDICAID, SELFPAY ==
--- NOTE | ~2023-02-20 | XR_ITS ---
EXAMINATION: XR CHEST CLINICAL INFORMATION: Lung disorder. COMPARISON: Chest radiograph dated 12/26/2022, chest CT scan dated 12/06/2022. TECHNIQUE: 2 views of the chest were obtained. FINDINGS: Multiple nodules are again seen bilaterally. The largest on the left appears increase in size measuring approximately 5.1 cm (previously 4.4 cm). The heart and mediastinal structures are unchanged. XR/XR chest 2V IMPRESSION: Mild interval enlargement of known pulmonary nodules.
== END 2023-02-20 09:24 | disposition home or self-care (01) ==
LOC: HO.XRAY 09:23
PROVIDERS: PCP Internal Medicine; Visit Provider Internal Medicine
DX: J44.9 Chronic obstructive pulmonary disease, unspecified (principal); J18.9 Pneumonia, unspecified organism; J98.4 Other disorders of lung; R06.2 Wheezing; G47.33 Obstructive sleep apnea (adult) (pediatric); Z99.81 Dependence on supplemental oxygen; Z79.899 Other long term (current) drug therapy
CPT/HCPCS: 71046; 99212

== ENCOUNTER 2023-04-06 13:38 | Inpatient (IN) | payer MEDICARE, MEDICAID, SELFPAY ==
[2023-04-06] VITALS (16 sets, daily range): BP systolic 86–122; BP diastolic 30–74; PULSE 68–85; RESP 19–26; TEMP 36.6–37; O2SAT 77–95; BMI 40.3
--- NOTE | ~2023-04-06 | CT_ITS ---
EXAMINATION: CT brain and CT cervical spine without contrast. CLINICAL INDICATIONS: Fall, neck pain. COMPARISON: CT brain 01/23/2023 TECHNIQUE: 5 mm thin and reformatted 2 mm thin sagittal and coronal images of brain were obtained. Subsequently axial 3 minutes thin and reformatted 2 mm thin sagittal coronal images of cervical spine were obtained. DLP 1469. This CT examination was performed using dose optimization technique as appropriate, variously including the following: Automated exposure control Adjustment of MA and/or KV according to patient size(this includes techniques or standardized protocols for targeted exams where dose is matched to indication/reason for exam; extremities or head. Use of iterative reconstruction techniques. FINDINGS: BRAIN: There is no acute intra-axial, extra-axial bleed, masses or midline shift. There is no acute infarction in evolution. No edema. Rodney to white matter differentiation is maintained. The lateral ventricles are symmetrical in size but enlarged. Bone windows reveal no calvarial abnormality. There is no scalp soft tissue abnormality. There is mild mucoperiosteal thickening right maxillary and bilateral ethmoid sinuses. The mastoid air cells are well-aerated. CERVICAL SPINE: There is mild straightening of cervical lordosis. The vertebral heights, alignment and disc heights are normal. There is no visible acute fracture, dislocation or subluxation seen. No aggressive lytic or sclerotic process seen. The prevertebral and paravertebral soft tissues are normal. The airways widely patent. The lung apices are clear CT/CT head/brain wo IV con IMPRESSION: No acute intracranial process seen. No acute fracture, dislocation or subluxation seen in cervical spine.
--- NOTE | ~2023-04-06 | CT_ITS ---
EXAMINATION: CT brain and CT cervical spine without contrast. CLINICAL INDICATIONS: Fall, neck pain. COMPARISON: CT brain 01/23/2023 TECHNIQUE: 5 mm thin and reformatted 2 mm thin sagittal and coronal images of brain were obtained. Subsequently axial 3 minutes thin and reformatted 2 mm thin sagittal coronal images of cervical spine were obtained. DLP 1469. This CT examination was performed using dose optimization technique as appropriate, variously including the following: Automated exposure control Adjustment of MA and/or KV according to patient size(this includes techniques or standardized protocols for targeted exams where dose is matched to indication/reason for exam; extremities or head. Use of iterative reconstruction techniques. FINDINGS: BRAIN: There is no acute intra-axial, extra-axial bleed, masses or midline shift. There is no acute infarction in evolution. No edema. Rodney to white matter differentiation is maintained. The lateral ventricles are symmetrical in size but enlarged. Bone windows reveal no calvarial abnormality. There is no scalp soft tissue abnormality. There is mild mucoperiosteal thickening right maxillary and bilateral ethmoid sinuses. The mastoid air cells are well-aerated. CERVICAL SPINE: There is mild straightening of cervical lordosis. The vertebral heights, alignment and disc heights are normal. There is no visible acute fracture, dislocation or subluxation seen. No aggressive lytic or sclerotic process seen. The prevertebral and paravertebral soft tissues are normal. The airways widely patent. The lung apices are clear CT/CT cervical spine wo IV con IMPRESSION: No acute intracranial process seen. No acute fracture, dislocation or subluxation seen in cervical spine.
--- NOTE | ~2023-04-06 | XR_ITS ---
EXAMINATION: XR CHEST CLINICAL INFORMATION: Triple-lumen catheter insertion COMPARISON: CT chest 04/06/2023, chest radiograph 02/20/2023, 12/26/2022. TECHNIQUE: Portable upright AP view of the chest is performed at 1023 hours. FINDINGS: There is ET tube 3.7 cm above ludmila. Left internal jugular central venous line is present with tip in region of proximal right atrium. There is no pneumothorax. Scattered pulmonary opacities are again seen as noted on recent CT. No overt effusion. There is enlarged cardiopericardial silhouette and tapering at the cardiophrenic angles consistent with areolar tissue similar to prior studies. XR/XR chest 1V IMPRESSION: - ET tube 3.7 cm above ludmila. - Left internal jugular central venous line in region of proximal right atrium. - No pneumothorax. Scattered pulmonary opacities similar to recent CT.
--- NOTE | ~2023-04-06 | CT_ITS ---
Examination: CT chest, abdomen pelvis without contrast. CLINICAL INDICATION: Abdominal trauma right-sided abdominal pain. COMPARISON: CTA chest 12/06/2022. CT abdomen and pelvis 03/10/2015. TECHNIQUE: 5 mm thin axial and reformatted 3 mm thin sagittal coronal images of chest, abdomen and pelvis were obtained following IV however mL Omnipaque 350. DLP 1651. This CT examination was performed using dose optimization technique as appropriate, variously including the following: Automated exposure control Adjustment of MA and/or KV according to patient size(this includes techniques or standardized protocols for targeted exams where dose is matched to indication/reason for exam; extremities or head. Use of iterative reconstruction techniques. FINDINGS: CHEST: LUNGS: The lungs are well-expanded with multiple bilateral pulmonary nodules/masses. There is same size as before measuring 2.7 cm right upper lobe and 4.4 cm left lobe extending to the left hilum. A 3 cm right lower lobe nodule on axial image 31/6 is stable as well. Right infrahilar large 3.3 cm meter squared stable on axial slice 35/6. No new nodules seen. There is patchy atelectasis left lung base. Mediastinum: Heart size and the great vessels are normal caliber. There are abnormal left para-aortic right paratracheal right suprahilar and retrocalcaneal lymph nodes are stable. The central trachea and bronchi appears widely patent. The thyroid lobes are symmetrical. Axilla: There are small axillary lymph nodes bilaterally, stable. Largest left axillary lymph node measures 1.1 cm on axial image 18/5. Osseous structures: There is no visible fracture or bony abnormality. There is moderate ventral spondylosis mid and lower dorsal spine. Abdomen and pelvis: Liver, ducts and gallbladder: The liver is slightly enlarged in size but normal contour. There is focal 1.3 cm hypodensity right hepatic lobe segment 6 axial image 27/[address] abdomen pelvis exam.. No intrahepatic ductal dilatation seen. Gallbladder has been surgically removed. Spleen: Unremarkable. Pancreas: Unremarkable. Adrenal glands: Unremarkable. Kidneys and ureters: Both kidney nephrograms are symmetrical in size, shape and position. No enhancing renal mass, radiopaque calculi or hydronephrosis. Lymphovascular structures: Abdominal aorta is normal caliber. No retrocrural lymph nodes or mass seen. GI tract: There is scattered stool and diverticuli seen throughout the colon without distention. Or diverticulitis. The small bowel loops are normal caliber. Appendix is not visualized with certainty. No free air or free fluid. Abdominal wall: There is a small umbilical hernia containing fat. Pelvis: The bladder is mildly distended. The uterus is surgically removed or atrophied. There is no free fluid. No adnexal mass. There are small abnormal right inguinal lymph nodes. The largest right inguinal lymph node measures 3.5 x 1.5 x 2.8 cm. The lymph node has increased in size since 2015 exam it measured 2.8 cm wide on axial slice 76/2 on 03/10/2015. Osseous structures: Degenerative disc changes with vacuum disc phenomena L5-S1 disc level. No aggressive lytic or sclerotic process seen. CT/CT abdomen pelvis w IV con IMPRESSION: Multiple lung masses are essentially stable. No new lung masses seen. Abnormal mediastinal adenopathy is stable. There is no rib fractures are thoracic spine fracture. Solitary liver lesion, hepatomegaly, cholecystectomy appears stable. Colonic diverticulosis without diverticulitis. Umbilical hernia. These are stable as well. There is right inguinal lymphadenopathy with enlarged right lymph node increased since the last exam 2015
--- NOTE | ~2023-04-06 | XR_ITS ---
EXAMINATION: XR CHEST CLINICAL INFORMATION: OG tube placement COMPARISON: Chest x-ray 04/07/2023 TECHNIQUE: Frontal view of the chest was obtained. FINDINGS: The lungs are expanded with patchy lung masses right upper and lower lobe. Heart size and perivascular is normal. There is new enteric tube with its tip below diaphragm. New left subclavian central venous catheter in the distal SVC. Endotracheal tube tip is 3.4 cm above the ludmila. No gross bony abnormality seen. XR/XR chest 1V IMPRESSION: 1. Left subclavian central venous catheter tip in distal SVC. No pneumothorax. 2. Endotracheal tube and new enteric tube are in satisfactory position. 3. Right lung masses are noted.
--- NOTE | 2023-04-06 13:41 | ED.GENADULT ---
HPI - General Adult General Chief complaint: Fall Stated complaint: fall 04/06, disoriented Time Seen by Provider: 04/06/23 14:11 Source: patient and family Mode of arrival: ambulatory History of Present Illness HPI narrative: 62-year-old female who is very drowsy and answers questions, but son states that her medications are locked up in the nurse's the 1 who administers the medications but states that he came back to the house and found her on the floor with complaints of right-sided chest wall pain and abdominal pain but currently to me she denies pain anywhere and is on 2 L nasal cannula baseline. Related Data Home Medications Medication Instructions Recorded Confirmed aspirin 81 mg tablet,delayed 81 mg PO DAILY 08/08/20 04/06/23 release docusate sodium 100 mg capsule 100 mg PO BID PRN Constipation 08/08/20 04/06/23 furosemide 40 mg tablet 120 mg PO DAILY 08/08/20 04/06/23 levothyroxine 100 mcg tablet 100 mcg PO DAILY@0630 08/08/20 04/06/23 paliperidone palmitate 234 mg/1.5 234 mg IM Q28D 08/08/20 04/06/23 mL intramuscular syringe sertraline 50 mg tablet 50 mg PO DAILY 08/08/20 04/06/23 albuterol sulfate 90 mcg/actuation 2 puff inhalation Q4-6H PRN 11/12/21 04/06/23 aerosol inhaler (Ventolin HFA) Shortness Of Breath cyanocobalamin (vitamin B-12) 1 tab PO DAILY 10/28/22 04/06/23 1,000 mcg tablet (Vitamin B-12) potassium chloride 20 mEq 2 tab PO DAILY 10/28/22 04/06/23 tablet,extended release loratadine 10 mg tablet (Loradamed) 10 mg PO DAILY 12/16/22 04/06/23 metolazone 5 mg tablet 5 mg PO DAILY PRN GREATER THAN 3 04/06/23 04/06/23 POUND WT GAIN IN 1 DAY Previous Rx's Medication Instructions Recorded fluticasone 250 mcg-salmeterol 50 1 inh inhalation BID #60 ea 02/05/22 mcg/dose blistr powdr for inhalation Allergies Allergy/AdvReac Type Severity Reaction Status Date / Time potassium Allergy Unknown Unknown Verified 04/06/23 13:46 Penicillins AdvReac Severe FAINTS Verified 04/06/23 13:46 Review of Systems Review of Systems: Pertinent positives and negatives as stated in [facility] Past Medical History Source: nursing notes reviewed Medical History COPD (chronic obstructive pulmonary disease) Hypoxemia Obesity FRANKI (obstructive sleep apnea) Pneumonia Restrictive lung disease Surgical History History of cholecystectomy Social History Social History Alcohol intake: never Patient Tobacco Use Status: Never used Tobacco Smoked in Last 30 Days: No Use of substances other than those prescribed or required for medical reasons: No Advance Directives: No Advance Directives Information Provided: Yes Patient : No Physical Exam ED Vital Signs: Vital Signs - 24 hr 04/06/23 13:41 04/06/23 14:03 04/06/23 14:04 Temperature 98 F Pulse Rate 81 77 81 Respiratory Rate 19 Blood Pressure 113/60 98/43 L 94/42 L Pulse Oximetry 90 L Oxygen Delivery Method Nasal Cannula Oxygen Flow Rate Fraction of Inspired Oxygen 04/06/23 14:06 04/06/23 14:34 04/06/23 16:00 Temperature 98.1 F Pulse Rate 85 73 71 Respiratory Rate 20 21 H Blood Pressure 86/41 L 122/64 91/43 L Pulse Oximetry 95 93 Oxygen Delivery Method Nasal Cannula Nasal Cannula Oxygen Flow Rate 2 2 Fraction of Inspired Oxygen 04/06/23 16:28 04/06/23 17:32 04/06/23 17:45 Temperature 97.9 F Pulse Rate 76 Respiratory Rate 20 24 H Blood Pressure 96/74 113/30 L Pulse Oximetry 93 Oxygen Delivery Method BiPAP Oxygen Flow Rate Fraction of Inspired Oxygen 04/06/23 18:21 04/06/23 18:22 04/06/23 19:06 Temperature Pulse Rate 71 Respiratory Rate 24 H Blood Pressure Pulse Oximetry 77 L 92 Oxygen Delivery Method Room Air Nasal Cannula Oxygen Flow Rate 6 Fraction of Inspired Oxygen 04/06/23 19:06 04/06/23 19:33 04/06/23 20:00 Temperature 97.8 F 98.6 F Pulse Rate 70 77 Respiratory Rate 25 H 24 H 26 H Blood Pressure 98/34 L 104/37 L Pulse Oximetry 92 92 Oxygen Delivery Method BiPAP Nasal Cannula Oxygen Flow Rate 3 Fraction of Inspired Oxygen 35 04/06/23 22:00 04/06/23 23:08 04/07/23 00:00 Temperature 97.8 F 98.6 F Pulse Rate 79 76 Respiratory Rate 19 19 24 H Blood Pressure 104/35 L 92/18 L Pulse Oximetry 89 L 93 Oxygen Delivery Method BiPAP BiPAP Oxygen Flow Rate Fraction of Inspired Oxygen 30 36 04/07/23 00:34 Temperature Pulse Rate Respiratory Rate 24 H Blood Pressure Pulse Oximetry Oxygen Delivery Method Oxygen Flow Rate Fraction of Inspired Oxygen BMI result Body Mass Index 40.3 VITAL SIGNS: Reviewed. GENERAL: Well developed, well nourished, in no acute distress. HEAD: Normocephalic/atraumatic EYES: PERRLA, EOMI EARS: Ext canals without abnormality NOSE: Nares patent bilateral OROPHARYNX: no oral lesions noted, posterior pharynx clear NECK: Supple, no adenopathy LUNGS: Good inspiratory effort but expiratory wheeze noted bilaterally, decreased breath sounds in the bases SpO2<95> on baseline 2 L nasal cannula CARDIOVASCULAR: Regular rate and rhythm without noted murmurs ABDOMEN: Soft, non-tender, non-distended with bowel sounds. MUSCULOSKELETAL: No tenderness, deformities, or effusions noted on gross inspection. EXTREMITIES: No cyanosis, clubbing or edema. SKIN: Inspection of the skin reveals no rashes NEUROLOGIC: Drowsy but arousable and oriented x 3. Strength and sensation to light touch were grossly intact x 4. Course Course Course Narrative: This is an RME: Additional HPI, ROS, PE not included below will be deferred to primary provider. Patient is a 62 year old female presenting with nephew after patient was found down on ground just prior to arrival. Patient does not remember falling. Was able to get up from the ground on her own afterwards. Patient denies pain currently. But nephew reports she was complaining of R sided rib pain. On ASA PE- global weakness Plan- bradley scan, labs, cpk. ekg, trop Medications Administered Discontinued Medications Generic Name Dose Route Start Last Admin Trade Name Freq PRN Reason Stop Dose Admin Albuterol Sulfate 10 mg 04/06/23 19:01 04/06/23 19:06 Albuterol Sulfate (0.083%) 2.5 Mg/3 Ml Vial.Neb INHALE 04/06/23 19:02 10 mg ONCE ONE Administration Diphenhydramine HCl 25 mg 04/07/23 00:32 04/07/23 00:46 Diphenhydramine Hcl 50 Mg/Ml Vial IVPUSH 04/07/23 00:33 25 mg ONCE ONE Administration Famotidine 20 mg 04/07/23 00:32 04/07/23 00:46 Famotidine/Pf 20 Mg/2 Ml Vial IVPUSH 04/07/23 00:33 20 mg ONCE ONE Administration Sodium Chloride 1,000 mls @ 500 mls/hr 04/06/23 17:11 04/06/23 19:55 Ns IVCONT 04/06/23 19:10 Infused .Q2H ONE Infusion Levofloxacin 500 mg in 100 mls @ 100 mls/hr 04/06/23 23:28 04/07/23 00:33 Levaquin IV 04/07/23 00:27 0 mls/hr ONCE ONE Infusion Iohexol 100 ml 04/06/23 15:53 04/06/23 15:54 Iohexol 350 Mg/Ml 100 Ml Infus..Btl IV 04/06/23 15:54 85 ml ONCE ONE Administration Methylprednisolone Sodium Succinate 125 mg 04/07/23 00:32 04/07/23 00:46 Methylprednisolone Sod Succ 125 Mg/2 Ml Vial IVPUSH 04/07/23 00:33 125 mg ONCE ONE Administration Naloxone HCl 4 mg 04/06/23 14:15 04/06/23 14:28 Naloxone Hcl Nasal 4 Mg [place] NOSTRILALT 04/06/23 14:16 4 mg ONCE ONE Administration Medical Decision Making Medical Decision Making [facility] Narrative: 62-year-old male who arrives with suspected syncopal episode of unknown etiology at this time. There is a contusion noted over eyebrow, she was noted to have pinpoint pupils bilaterally and appears to be very drowsy so 4 mg of intranasal Narcan were administered without much change. Patient has an extensive respiratory history that includes restrictive lung disease/COPD/FRANKI. However, the fact that the patient was found down by family members is concerning for syncope. Signed out to DR Tavares. -patient's white blood cell count is 7.8, lactic acid 1.0, CT scan shows multiple old lung masses, no pneumonia. Patient does not have an infectious process, however, given the patient's history, we will cover her with Levaquin. Patient not septic. -patient does have hypercapnic respiratory failure. Patient's initial pCO2 was 60. We started the patient on BiPAP, after 2 hours we recheck her pCO2 which increased to 95. However, clinically patient did improve quite a bit, patient was awake, alert and oriented x3, stating that she feels much better. Recommends the patient to keep her a few more hours on the BiPAP. Patient received 1 more nebulization treatment. Patient breathing comfortable, went back to sleep. -in about 1 hour, we will take the patient off of BiPAP and recheck blood gases -when patient was getting IV Levaquin, patient started developing an allergic reaction, the IV was not infuse, patient started developing hives and itching around the left arm. The Levaquin was stopped, patient was giving Solu-Medrol, Pepcid and Benadryl. Patient denies any difficulty breathing. -blood gases were rechecked after having the patient on BiPAP for 4 hours, pCO2 did not improve significantly, went from 95 to 84. Patient awake, alert, still unable to follow commands. -I discussed the patient with Dr. Joseph, pt being admitted to the ICU Differential Diagnosis Please see the discussion above Admission/Observation Consideration of admission/observation: Escalation of care including admission/observation considered Consult Healthcare Provider Management of the patient was discussed with: Hospitalist Lab Data MDM Lab Attestation statement: I reviewed the patient's lab results. 04/06/23 14:24 04/06/23 14:22 Labs: Lab Results 04/06/23 04/06/23 04/06/23 Range/Units 14:22 14:22 14:23 WBC (4.8-10.8) X10*3/uL RBC (4.20-5.50) X10*6/uL Hgb (12.0-16.0) g/dl Hct (37.0-47.0) % MCV (80.0-98.0) fL MCH (27.0-33.0) pg MCHC (31.0-35.0) g/dl RDW (11.0-16.0) % Plt Count (160-400) X10*3/uL MPV (9.4-12.3) fL Immature Gran % (Auto) (0.0-0.4) % Neut % (Auto) (45-73) % Lymph % (Auto) (20-40) % [place] % (Auto) (2-11) % Eos % (Auto) (0-4) % Baso % (Auto) (0-2) % Lymph # (Auto) (1.2-4.9) X10*3/uL [place] # (Auto) (0.1-1.2) X10*3/uL Eos # (Auto) (0.0-0.4) X10*3/uL Baso # (Auto) (0.0-0.2) X10*3/uL Abs Immat Gran (auto) (0.00-0.03) X10*3/uL Absolute Neuts (auto) (2.0-8.3) x10*3/uL Absolute Nucleated RBC (0.0-0.012) X10*3/uL Nucleated RBC % (auto) (0.0-0.2) /100WBC PT 11.6 (10.0-13.1) SEC INR 1.0 (0.9-1.1) VBG pH (7.32-7.43) VBG pCO2 mmHg VBG pO2 mmHg VBG HCO3 (22-26) mmol/L VBG O2 Saturation % VBG Base Excess mmol/L Sodium 138 (135-145) mmol/L Potassium 3.7 (3.3-5.1) mmol/L Chloride 89 L (96-108) mmol/L Carbon Dioxide 38 H (22-29) mmol/L Anion Gap 15 (12-20) BUN 12 (9-16) mg/dL Creatinine 0.74 (0.5-1.4) mg/dL Estim Creat Clear Calc 84.9 Estimated GFR > 60 Random Glucose 162 H (60-115) mg/dL Lactic Acid (0.5-2.0) mmol/L Calcium 10.1 D (8.4-10.2) mg/dL Magnesium 2.3 (1.6-2.6) mg/dL Total Bilirubin 0.7 (0.0-1.0) mg/dL AST 22 (5-31) U/L ALT 12 (0-31) U/L Alkaline Phosphatase 118 H (39-117) U/L Total Creatine Kinase 81 (26-140) U/L Troponin I High Sens < 2.7 (<3.5-17.0) ng/L B-Natriuretic Peptide (<100) pg/mL Total Protein 7.8 (6.5-8.0) g/dL Albumin 3.7 (3.5-5.0) g/dL TSH (0.32-4.0) uIU/mL Urine Color Urine Appearance Urine pH (5.0-9.0) Ur Specific [place] (1.005-1.025) Urine Protein (Neg-Trace) mg/dL Urine Glucose (UA) (Negative) mg/dL Urine Ketones (Negative) mg/dL Urine Blood (Negative) Urine Nitrite (Negative) Ur Leukocyte Esterase (Negative) Urine Opiates Screen (Not Detect) Urine Fentanyl Screen (Not Detect) Ur Barbiturates Screen (Not Detect) Ur Phencyclidine Scrn (Not Detect) Ur Amphetamines Screen (Not Detect) U Benzodiazepines Scrn (Not Detect) Urine Cocaine Screen (Not Detect) U Marijuana (THC) Screen (Not Detect) Ethyl Alcohol mg/dL COVID-19 ([place]) (Negative) COVID-19 Clin Com 04/06/23 04/06/23 04/06/23 Range/Units 14:23 14:24 14:24 WBC 7.8 (4.8-10.8) X10*3/uL RBC 5.30 (4.20-5.50) X10*6/uL Hgb 14.5 (12.0-16.0) g/dl Hct 49.4 H (37.0-47.0) % MCV 93.2 (80.0-98.0) fL MCH 27.4 (27.0-33.0) pg MCHC 29.4 L (31.0-35.0) g/dl RDW 16.2 H (11.0-16.0) % Plt Count 311 (160-400) X10*3/uL MPV 9.2 L (9.4-12.3) fL Immature Gran % (Auto) 0.3 (0.0-0.4) % Neut % (Auto) 81.2 H (45-73) % Lymph % (Auto) 9.9 L (20-40) % [place] % (Auto) 7.2 (2-11) % Eos % (Auto) 1.0 (0-4) % Baso % (Auto) 0.4 (0-2) % Lymph # (Auto) 0.8 L (1.2-4.9) X10*3/uL [place] # (Auto) 0.6 (0.1-1.2) X10*3/uL Eos # (Auto) 0.1 (0.0-0.4) X10*3/uL Baso # (Auto) 0.0 (0.0-0.2) X10*3/uL Abs Immat Gran (auto) 0.02 (0.00-0.03) X10*3/uL Absolute Neuts (auto) 6.3 (2.0-8.3) x10*3/uL Absolute Nucleated RBC 0.000 (0.0-0.012) X10*3/uL Nucleated RBC % (auto) 0.0 (0.0-0.2) /100WBC PT (10.0-13.1) SEC INR (0.9-1.1) VBG pH (7.32-7.43) VBG pCO2 mmHg VBG pO2 mmHg VBG HCO3 (22-26) mmol/L VBG O2 Saturation % VBG Base Excess mmol/L Sodium (135-145) mmol/L Potassium (3.3-5.1) mmol/L Chloride (96-108) mmol/L Carbon Dioxide (22-29) mmol/L Anion Gap (12-20) BUN (9-16) mg/dL Creatinine (0.5-1.4) mg/dL Estim Creat Clear Calc Estimated GFR Random Glucose (60-115) mg/dL Lactic Acid 1.0 (0.5-2.0) mmol/L Calcium (8.4-10.2) mg/dL Magnesium (1.6-2.6) mg/dL Total Bilirubin (0.0-1.0) mg/dL AST (5-31) U/L ALT (0-31) U/L Alkaline Phosphatase (39-117) U/L Total Creatine Kinase (26-140) U/L Troponin I High Sens (<3.5-17.0) ng/L B-Natriuretic Peptide 66 (<100) pg/mL Total Protein (6.5-8.0) g/dL Albumin (3.5-5.0) g/dL TSH (0.32-4.0) uIU/mL Urine Color Urine Appearance Urine pH (5.0-9.0) Ur Specific [place] (1.005-1.025) Urine Protein (Neg-Trace) mg/dL Urine Glucose (UA) (Negative) mg/dL Urine Ketones (Negative) mg/dL Urine Blood (Negative) Urine Nitrite (Negative) Ur Leukocyte Esterase (Negative) Urine Opiates Screen (Not Detect) Urine Fentanyl Screen (Not Detect) Ur Barbiturates Screen (Not Detect) Ur Phencyclidine Scrn (Not Detect) Ur Amphetamines Screen (Not Detect) U Benzodiazepines Scrn (Not Detect) Urine Cocaine Screen (Not Detect) U Marijuana (THC) Screen (Not Detect) Ethyl Alcohol mg/dL COVID-19 ([place]) (Negative) COVID-19 Clin Com 04/06/23 04/06/23 04/06/23 Range/Units 14:25 15:54 17:01 WBC (4.8-10.8) X10*3/uL RBC (4.20-5.50) X10*6/uL Hgb (12.0-16.0) g/dl Hct (37.0-47.0) % MCV (80.0-98.0) fL MCH (27.0-33.0) pg MCHC (31.0-35.0) g/dl RDW (11.0-16.0) % Plt Count (160-400) X10*3/uL MPV (9.4-12.3) fL Immature Gran % (Auto) (0.0-0.4) % Neut % (Auto) (45-73) % Lymph % (Auto) (20-40) % [place] % (Auto) (2-11) % Eos % (Auto) (0-4) % Baso % (Auto) (0-2) % Lymph # (Auto) (1.2-4.9) X10*3/uL [place] # (Auto) (0.1-1.2) X10*3/uL Eos # (Auto) (0.0-0.4) X10*3/uL Baso # (Auto) (0.0-0.2) X10*3/uL Abs Immat Gran (auto) (0.00-0.03) X10*3/uL Absolute Neuts (auto) (2.0-8.3) x10*3/uL Absolute Nucleated RBC (0.0-0.012) X10*3/uL Nucleated RBC % (auto) (0.0-0.2) /100WBC PT (10.0-13.1) SEC INR (0.9-1.1) VBG pH 7.50 H (7.32-7.43) VBG pCO2 60 mmHg VBG pO2 175 mmHg VBG HCO3 48 H (22-26) mmol/L VBG O2 Saturation 100.0 % VBG Base Excess 21.1 mmol/L Sodium (135-145) mmol/L Potassium (3.3-5.1) mmol/L Chloride (96-108) mmol/L Carbon Dioxide (22-29) mmol/L Anion Gap (12-20) BUN (9-16) mg/dL Creatinine (0.5-1.4) mg/dL Estim Creat Clear Calc Estimated GFR Random Glucose (60-115) mg/dL Lactic Acid (0.5-2.0) mmol/L Calcium (8.4-10.2) mg/dL Magnesium (1.6-2.6) mg/dL Total Bilirubin (0.0-1.0) mg/dL AST (5-31) U/L ALT (0-31) U/L Alkaline Phosphatase (39-117) U/L Total Creatine Kinase (26-140) U/L Troponin I High Sens 2.8 (<3.5-17.0) ng/L B-Natriuretic Peptide (<100) pg/mL Total Protein (6.5-8.0) g/dL Albumin (3.5-5.0) g/dL TSH (0.32-4.0) uIU/mL Urine Color Urine Appearance Urine pH (5.0-9.0) Ur Specific [place] (1.005-1.025) Urine Protein (Neg-Trace) mg/dL Urine Glucose (UA) (Negative) mg/dL Urine Ketones (Negative) mg/dL Urine Blood (Negative) Urine Nitrite (Negative) Ur Leukocyte Esterase (Negative) Urine Opiates Screen (Not Detect) Urine Fentanyl Screen (Not Detect) Ur Barbiturates Screen (Not Detect) Ur Phencyclidine Scrn (Not Detect) Ur Amphetamines Screen (Not Detect) U Benzodiazepines Scrn (Not Detect) Urine Cocaine Screen (Not Detect) U Marijuana (THC) Screen (Not Detect) Ethyl Alcohol mg/dL COVID-19 ([place]) Negative (Negative) COVID-19 Clin Com See Note 04/06/23 04/06/23 04/06/23 Range/Units 17:01 17:01 17:01 WBC (4.8-10.8) X10*3/uL RBC (4.20-5.50) X10*6/uL Hgb (12.0-16.0) g/dl Hct (37.0-47.0) % MCV (80.0-98.0) fL MCH (27.0-33.0) pg MCHC (31.0-35.0) g/dl RDW (11.0-16.0) % Plt Count (160-400) X10*3/uL MPV (9.4-12.3) fL Immature Gran % (Auto) (0.0-0.4) % Neut % (Auto) (45-73) % Lymph % (Auto) (20-40) % [place] % (Auto) (2-11) % Eos % (Auto) (0-4) % Baso % (Auto) (0-2) % Lymph # (Auto) (1.2-4.9) X10*3/uL [place] # (Auto) (0.1-1.2) X10*3/uL Eos # (Auto) (0.0-0.4) X10*3/uL Baso # (Auto) (0.0-0.2) X10*3/uL Abs Immat Gran (auto) (0.00-0.03) X10*3/uL Absolute Neuts (auto) (2.0-8.3) x10*3/uL Absolute Nucleated RBC (0.0-0.012) X10*3/uL Nucleated RBC % (auto) (0.0-0.2) /100WBC PT (10.0-13.1) SEC INR (0.9-1.1) VBG pH (7.32-7.43) VBG pCO2 mmHg VBG pO2 mmHg VBG HCO3 (22-26) mmol/L VBG O2 Saturation % VBG Base Excess mmol/L Sodium (135-145) mmol/L Potassium (3.3-5.1) mmol/L Chloride (96-108) mmol/L Carbon Dioxide (22-29) mmol/L Anion Gap (12-20) BUN (9-16) mg/dL Creatinine (0.5-1.4) mg/dL Estim Creat Clear Calc Estimated GFR Random Glucose (60-115) mg/dL Lactic Acid (0.5-2.0) mmol/L Calcium (8.4-10.2) mg/dL Magnesium 2.3 (1.6-2.6) mg/dL Total Bilirubin (0.0-1.0) mg/dL AST (5-31) U/L ALT (0-31) U/L Alkaline Phosphatase (39-117) U/L Total Creatine Kinase (26-140) U/L Troponin I High Sens (<3.5-17.0) ng/L B-Natriuretic Peptide (<100) pg/mL Total Protein (6.5-8.0) g/dL Albumin (3.5-5.0) g/dL TSH 0.89 (0.32-4.0) uIU/mL Urine Color Urine Appearance Urine pH (5.0-9.0) Ur Specific [place] (1.005-1.025) Urine Protein (Neg-Trace) mg/dL Urine Glucose (UA) (Negative) mg/dL Urine Ketones (Negative) mg/dL Urine Blood (Negative) Urine Nitrite (Negative) Ur Leukocyte Esterase (Negative) Urine Opiates Screen (Not Detect) Urine Fentanyl Screen (Not Detect) Ur Barbiturates Screen (Not Detect) Ur Phencyclidine Scrn (Not Detect) Ur Amphetamines Screen (Not Detect) U Benzodiazepines Scrn (Not Detect) Urine Cocaine Screen (Not Detect) U Marijuana (THC) Screen (Not Detect) Ethyl Alcohol < 10 mg/dL COVID-19 ([place]) (Negative) COVID-19 Clin Com 04/06/23 04/06/23 04/06/23 Range/Units 17:38 17:38 21:08 WBC (4.8-10.8) X10*3/uL RBC (4.20-5.50) X10*6/uL Hgb (12.0-16.0) g/dl Hct (37.0-47.0) % MCV (80.0-98.0) fL MCH (27.0-33.0) pg MCHC (31.0-35.0) g/dl RDW (11.0-16.0) % Plt Count (160-400) X10*3/uL MPV (9.4-12.3) fL Immature Gran % (Auto) (0.0-0.4) % Neut % (Auto) (45-73) % Lymph % (Auto) (20-40) % [place] % (Auto) (2-11) % Eos % (Auto) (0-4) % Baso % (Auto) (0-2) % Lymph # (Auto) (1.2-4.9) X10*3/uL [place] # (Auto) (0.1-1.2) X10*3/uL Eos # (Auto) (0.0-0.4) X10*3/uL Baso # (Auto) (0.0-0.2) X10*3/uL Abs Immat Gran (auto) (0.00-0.03) X10*3/uL Absolute Neuts (auto) (2.0-8.3) x10*3/uL Absolute Nucleated RBC (0.0-0.012) X10*3/uL Nucleated RBC % (auto) (0.0-0.2) /100WBC PT (10.0-13.1) SEC INR (0.9-1.1) VBG pH 7.33 (7.32-7.43) VBG pCO2 95 mmHg VBG pO2 85 mmHg VBG HCO3 50 H (22-26) mmol/L VBG O2 Saturation 95.0 % VBG Base Excess 18.3 mmol/L Sodium (135-145) mmol/L Potassium (3.3-5.1) mmol/L Chloride (96-108) mmol/L Carbon Dioxide (22-29) mmol/L Anion Gap (12-20) BUN (9-16) mg/dL Creatinine (0.5-1.4) mg/dL Estim Creat Clear Calc Estimated GFR Random Glucose (60-115) mg/dL Lactic Acid (0.5-2.0) mmol/L Calcium (8.4-10.2) mg/dL Magnesium (1.6-2.6) mg/dL Total Bilirubin (0.0-1.0) mg/dL AST (5-31) U/L ALT (0-31) U/L Alkaline Phosphatase (39-117) U/L Total Creatine Kinase (26-140) U/L Troponin I High Sens (<3.5-17.0) ng/L B-Natriuretic Peptide (<100) pg/mL Total Protein (6.5-8.0) g/dL Albumin (3.5-5.0) g/dL TSH (0.32-4.0) uIU/mL Urine Color Yellow Urine Appearance Clear Urine pH 7.5 (5.0-9.0) Ur Specific [place] 1.015 (1.005-1.025) Urine Protein Negative (Neg-Trace) mg/dL Urine Glucose (UA) Negative (Negative) mg/dL Urine Ketones Negative (Negative) mg/dL Urine Blood Negative (Negative) Urine Nitrite Negative (Negative) Ur Leukocyte Esterase Negative (Negative) Urine Opiates Screen Not Detected (Not Detect) Urine Fentanyl Screen Not Detected (Not Detect) Ur Barbiturates Screen Not Detected (Not Detect) Ur Phencyclidine Scrn Not Detected (Not Detect) Ur Amphetamines Screen Not Detected (Not Detect) U Benzodiazepines Scrn Not Detected (Not Detect) Urine Cocaine Screen Not Detected (Not Detect) U Marijuana (THC) Screen Not Detected (Not Detect) Ethyl Alcohol mg/dL COVID-19 ([place]) (Negative) COVID-19 Clin Com 04/07/23 Range/Units 00:33 WBC (4.8-10.8) X10*3/uL RBC (4.20-5.50) X10*6/uL Hgb (12.0-16.0) g/dl Hct (37.0-47.0) % MCV (80.0-98.0) fL MCH (27.0-33.0) pg MCHC (31.0-35.0) g/dl RDW (11.0-16.0) % Plt Count (160-400) X10*3/uL MPV (9.4-12.3) fL Immature Gran % (Auto) (0.0-0.4) % Neut % (Auto) (45-73) % Lymph % (Auto) (20-40) % [place] % (Auto) (2-11) % Eos % (Auto) (0-4) % Baso % (Auto) (0-2) % Lymph # (Auto) (1.2-4.9) X10*3/uL [place] # (Auto) (0.1-1.2) X10*3/uL Eos # (Auto) (0.0-0.4) X10*3/uL Baso # (Auto) (0.0-0.2) X10*3/uL Abs Immat Gran (auto) (0.00-0.03) X10*3/uL Absolute Neuts (auto) (2.0-8.3) x10*3/uL Absolute Nucleated RBC (0.0-0.012) X10*3/uL Nucleated RBC % (auto) (0.0-0.2) /100WBC PT (10.0-13.1) SEC INR (0.9-1.1) VBG pH 7.38 (7.32-7.43) VBG pCO2 84 mmHg VBG pO2 59 mmHg VBG HCO3 50 H (22-26) mmol/L VBG O2 Saturation 85.0 % VBG Base Excess 20.1 mmol/L Sodium (135-145) mmol/L Potassium (3.3-5.1) mmol/L Chloride (96-108) mmol/L Carbon Dioxide (22-29) mmol/L Anion Gap (12-20) BUN (9-16) mg/dL Creatinine (0.5-1.4) mg/dL Estim Creat Clear Calc Estimated GFR Random Glucose (60-115) mg/dL Lactic Acid (0.5-2.0) mmol/L Calcium (8.4-10.2) mg/dL Magnesium (1.6-2.6) mg/dL Total Bilirubin (0.0-1.0) mg/dL AST (5-31) U/L ALT (0-31) U/L Alkaline Phosphatase (39-117) U/L Total Creatine Kinase (26-140) U/L Troponin I High Sens (<3.5-17.0) ng/L B-Natriuretic Peptide (<100) pg/mL Total Protein (6.5-8.0) g/dL Albumin (3.5-5.0) g/dL TSH (0.32-4.0) uIU/mL Urine Color Urine Appearance Urine pH (5.0-9.0) Ur Specific [place] (1.005-1.025) Urine Protein (Neg-Trace) mg/dL Urine Glucose (UA) (Negative) mg/dL Urine Ketones (Negative) mg/dL Urine Blood (Negative) Urine Nitrite (Negative) Ur Leukocyte Esterase (Negative) Urine Opiates Screen (Not Detect) Urine Fentanyl Screen (Not Detect) Ur Barbiturates Screen (Not Detect) Ur Phencyclidine Scrn (Not Detect) Ur Amphetamines Screen (Not Detect) U Benzodiazepines Scrn (Not Detect) Urine Cocaine Screen (Not Detect) U Marijuana (THC) Screen (Not Detect) Ethyl Alcohol mg/dL COVID-19 ([place]) (Negative) COVID-19 Clin Com Independent Interpretation I performed an independent interpretation of an: EKG Interpretation: SR with first-degree AV block at baseline, HR-80, no STEMI, NH -216, QRS/QTC is within normal limits Radiology Impression Discussion of test interpretation with radiology: I have reviewed the radiologist's reading. Radiologist Impression: FINDINGS: CHEST: LUNGS: The lungs are well-expanded with multiple bilateral pulmonary nodules/masses. There is same size as before measuring 2.7 cm right upper lobe and 4.4 cm left lobe extending to the left hilum. A 3 cm right lower lobe nodule on axial image 31/6 is stable as well. Right infrahilar large 3.3 cm meter squared stable on axial slice 35/6. No new nodules seen. There is patchy atelectasis left lung base. Mediastinum: Heart size and the great vessels are normal caliber. There are abnormal left para-aortic right paratracheal right suprahilar and retrocalcaneal lymph nodes are stable. The central trachea and bronchi appears widely patent. The thyroid lobes are symmetrical. Axilla: There are small axillary lymph nodes bilaterally, stable. Largest left axillary lymph node measures 1.1 cm on axial image 18/5. Osseous structures: There is no visible fracture or bony abnormality. There is moderate ventral spondylosis mid and lower dorsal spine. Abdomen and pelvis: Liver, ducts and gallbladder: The liver is slightly enlarged in size but normal contour. There is focal 1.3 cm hypodensity right hepatic lobe segment 6 axial image 27/ unchanged to last CT abdomen pelvis exam.. No intrahepatic ductal dilatation seen. Gallbladder has been surgically removed. Spleen: Unremarkable. Pancreas: Unremarkable. Adrenal glands: Unremarkable. Kidneys and ureters: Both kidney nephrograms are symmetrical in size, shape and position. No enhancing renal mass, radiopaque calculi or hydronephrosis. Lymphovascular structures: Abdominal aorta is normal caliber. No retrocrural lymph nodes or mass seen. GI tract: There is scattered stool and diverticuli seen throughout the colon without distention. Or diverticulitis. The small bowel loops are normal caliber. Appendix is not visualized with certainty. No free air or free fluid. Abdominal wall: There is a small umbilical hernia containing fat. Pelvis: The bladder is mildly distended. The uterus is surgically removed or atrophied. There is no free fluid. No adnexal mass. There are small abnormal right inguinal lymph nodes. The largest right inguinal lymph node measures 3.5 x 1.5 x 2.8 cm. The lymph node has increased in size since 2015 exam it measured 2.8 cm wide on axial slice 76/2 on 03/10/2015. Osseous structures: Degenerative disc changes with vacuum disc phenomena L5-S1 disc level. No aggressive lytic or sclerotic process seen. CT/CT chest w IV con IMPRESSION: Multiple lung masses are essentially stable. No new lung masses seen. Abnormal mediastinal adenopathy is stable. There is no rib fractures are thoracic spine fracture. ? Solitary liver lesion, hepatomegaly, cholecystectomy appears stable. ? Colonic diverticulosis without diverticulitis. Umbilical hernia. These are stable as well. ? There is right inguinal lymphadenopathy with enlarged right lymph node increased since the last exam 2015 FINDINGS: BRAIN: There is no acute intra-axial, extra-axial bleed, masses or midline shift. There is no acute infarction in evolution. No edema. Rodney to white matter differentiation is? maintained. The lateral ventricles are symmetrical in size but enlarged. Bone windows reveal no calvarial abnormality. There is no scalp soft tissue abnormality. There is mild mucoperiosteal thickening right maxillary and bilateral ethmoid sinuses. The mastoid air cells are well-aerated. CERVICAL SPINE: There is mild straightening of cervical lordosis. The vertebral heights, alignment and disc heights are normal. There is no visible acute fracture, dislocation or subluxation seen. No aggressive lytic or sclerotic process seen. The prevertebral and paravertebral soft tissues are normal. The airways widely patent. The lung apices are clear CT/CT head/brain wo IV con IMPRESSION: No acute intracranial process seen. ? No acute fracture, dislocation or subluxation seen in cervical spine. Critical Care Time Critical Care Time Critical Care Time: Yes Total Critical Care Time: 120 Attestation: I have personally provided critical care time. Time includes review of lab data, radiology results, discussion with consultants, and monitoring for potential decompensation. Intervention performed as documented. Discharge Plan Discharge Clinical Impression: Fall, Hypercapnic respiratory failure Patient Disposition: Admitted As Inpatient Prescriptions: No Action fluticasone propion-salmeterol 250-50 mcg/dose blister with device 1 inh inhalation BID Qty: 60 3RF cyanocobalamin (vitamin B-12) [Vitamin B-12] 1,000 mcg tablet 1 tab PO DAILY potassium chloride 20 mEq tablet extended release 2 tab PO DAILY metolazone 5 mg Tablet 5 mg PO DAILY PRN (Reason: GREATER THAN 3 POUND WT GAIN IN 1 DAY) Invega Sustenna 234 mg/1.5 mL syringe 234 mg IM Q28D sertraline 50 mg tablet 50 mg PO DAILY levothyroxine 100 mcg tablet 100 mcg PO DAILY@0630 docusate sodium 100 mg capsule 100 mg PO BID PRN (Reason: Constipation) aspirin 81 mg tablet,delayed release (DR/EC) 81 mg PO DAILY furosemide 40 mg tablet 120 mg PO DAILY albuterol sulfate [Ventolin HFA] 90 mcg/actuation HFA aerosol inhaler 2 puff inhalation Q4-6H PRN (Reason: Shortness Of Breath) loratadine [Loradamed] 10 mg tablet 10 mg PO DAILY
--- NOTE | 2023-04-06 13:44 | ECG_ITS ---
Test Reason : fall Blood Pressure : / mmHG Vent. Rate : 080 BPM Atrial Rate : 080 BPM P-R Int : 216 ms QRS Dur : 074 ms QT Int : 360 ms P-R-T Axes : 063 084 060 degrees QTc Int : 415 ms Sinus rhythm with 1st degree A-V block Low voltage QRS Borderline ECG When compared with ECG of 06-JAN-2023 09:16, No significant change was found Referred By: Jin Hayes Electronically Signed By:JUSTA TAVARES
[2023-04-06] MEDS: Naloxone HCl Nasal 4 MG SPRAY NOSTRILALT (14:28)
[2023-04-06 14:31] LABS: MANUAL DIFF FLAG NO
[2023-04-06 14:32] LABS: Basophils Percent Auto 0.4 % (0-2); Eosinophils Absolute Auto 0.1 X10*3/uL (0.0-0.4); Hematocrit 49.4 % (37.0-47.0); Hemoglobin 14.5 g/dl (12.0-16.0); Imm Gran Abs Auto 0.02 X10*3/uL (0.00-0.03); Imm Gran Pct Auto 0.3 % (0.0-0.4); Lymphocytes Absolute Auto 0.8 X10*3/uL (1.2-4.9); Lymphocytes Percent Auto 9.9 % (20-40); Mean Corpuscular HGB Conc 29.4 g/dl (31.0-35.0); Mean Corpuscular Hemoglobin 27.4 pg (27.0-33.0); Mean Corpuscular Volume 93.2 fL (80.0-98.0); Mean Platelet Volume 9.2 fL (9.4-12.3); Monocytes Absolute Auto 0.6 X10*3/uL (0.1-1.2); Monocytes Percent Auto 7.2 % (2-11); Neutrophils Absolute Auto 6.3 x10*3/uL (2.0-8.3); Neutrophils Percent Auto 81.2 % (45-73); Platelet Count 311 X10*3/uL (160-400); Red Cell Distribution Width 16.2 % (11.0-16.0); White Blood Count 7.8 X10*3/uL (4.8-10.8)
[2023-04-06 14:37] LABS: Prothrombin Time 11.6 SEC (10.0-13.1)
[2023-04-06 14:46] LABS: COVID-19 Test Negative (Negative); IDNOW Serial# 6674DD1D
--- NOTE | 2023-04-06 14:52 | PC.NURSE ---
pt sleeping, wakes to verbal stimulus but is very sleepy, ekg performed, amusement ride inspector applied nsr 70s, pt had orthostats performed, iv inserted, labs drawn, pt eyes perrla, pt wears 2L O2 home dependent, narcan given without change in patients status, rt eyebrow/forhead noted bruising/mild swelling-provider notified, family at bedside, call ratliff within reach, will continue to monitor.
[2023-04-06 15:03] LABS: B Type Natriuretic Peptide 66 pg/mL (<100)
[2023-04-06 15:04] LABS: Alanine Aminotransferase 12 U/L (0-31); Albumin Level 3.7 g/dL (3.5-5.0); Alkaline Phosphatase 118 U/L (39-117); Anion Gap 15 (12-20); Aspartate Amino Transferase 22 U/L (5-31); Bilirubin Total 0.7 mg/dL (0.0-1.0); Blood Urea Nitrogen 12 mg/dL (9-16); Calcium 10.1 mg/dL (8.4-10.2); Carbon Dioxide 38 mmol/L (22-29); Chloride 89 mmol/L (96-108); Creatinine Clr Calc Pharmacy 84.9; Estimated Glomerular Filt Rate > 60; Glucose Random 162 mg/dL (60-115); Magnesium 2.3 mg/dL (1.6-2.6); Potassium 3.7 mmol/L (3.3-5.1); Sodium 138 mmol/L (135-145); Total Protein 7.8 g/dL (6.5-8.0); Troponin-I High Sensitivity < 2.7 ng/L (<3.5-17.0)
--- NOTE | 2023-04-06 15:12 | PC.NURSE ---
per provider request, this nurse called lab to see where the results of our VBG are as it had been received by the lab, per lab they were unable to find the VBG and needed to be redrawn, provider was notified as was the tech, lab to undo the lab so it can be redrawn
[2023-04-06] MEDS: iohexoL 350 MG/ML 100 ML INFUS..BTL IV (15:54)
[2023-04-06 16:09] LABS: VBG Base Excess 21.1 mmol/L; VBG HCO3 48 mmol/L (22-26); VBG pCO2 60 mmHg; VBG pO2 175 mmHg
[2023-04-06 16:11] LABS: Venous Blood Gas Refer to POC result
--- NOTE | 2023-04-06 16:33 | ECG_ITS ---
Test Reason : HYPOTENSION Blood Pressure : / mmHG Vent. Rate : 070 BPM Atrial Rate : 070 BPM P-R Int : 256 ms QRS Dur : 074 ms QT Int : 400 ms P-R-T Axes : 051 077 055 degrees QTc Int : 432 ms Sinus rhythm with 1st degree A-V block Low voltage QRS Borderline ECG When compared with ECG of 06-APR-2023 13:54, No significant change was found Referred By: Ina Key Electronically Signed By:JUSTA TAVARES
[2023-04-06 17:39] LABS: Ethanol < 10 mg/dL
[2023-04-06 17:40] LABS: Magnesium 2.3 mg/dL (1.6-2.6)
[2023-04-06] MEDS: 0.9 % Sodium Chloride 1,000 ML 500 ML IVCONT (17:40)
--- NOTE | 2023-04-06 17:51 | PC.NURSE ---
pt was sleepy but woke up to verbal stimuli, RT placed BiPAP settings 12/5 30% O2, straight cath performed per order - 475mL urine noted, travel writer showing nsr, BP soft, IVF hung per order, pt disliking BiPAP and pulled it off - explained to her that it needs to stay in place to help her breathe - mask was put back into proper placement, will continue to monitor.
[2023-04-06 17:53] LABS: Troponin-I High Sensitivity 2.8 ng/L (<3.5-17.0)
[2023-04-06 18:02] LABS: TSH reflex Free T4 0.89 uIU/mL (0.32-4.0)
--- NOTE | 2023-04-06 18:21 | PHA.MEDREC ---
Pharmacy Consult ? Medication Reconciliation Pharmacy has completed the medication reconciliation. Spoke to nurse Abril ([phone]) and she confirmed medications and dosings. Confirms that invega was last given on the of this month and is given Friday of every month.
--- NOTE | 2023-04-06 18:22 | PC.NURSE ---
pt now awake and pulled off bipap, pts o2 sat went down to 77%, provider at bedside/aware, placed on 6L NC while provider spoke with her about keeping the bipap on, bipap was replaced, will continue to monitor
[2023-04-06 18:27] LABS: Appearance Urine Clear; Color Urine Yellow; Glucose Urine UA Negative (Negative); Leukocyte Esterase Urine Negative (Negative); Nitrite Urine Negative (Negative); PH 7.5 (5.0-9.0); Specific Gravity - Urine 1.015 (1.005-1.025); Urine Blood Negative (Negative); Urine Ketones Negative (Negative); Urine Protein Negative (Neg-Trace)
[2023-04-06 18:38] LABS: Amphetamine Screen Urine Not Detected (Not Detect); Barbiturates, Urine Not Detected (Not Detect); Benzodiazepines Screen Urine Not Detected (Not Detect); Cannabinoid Screen Urine Not Detected (Not Detect); Cocaine Screen Urine Not Detected (Not Detect); Fentanyl, urine Not Detected (Not Detect); Opiate Screen Urine Not Detected (Not Detect); Phencyclidine Screen Urine Not Detected (Not Detect)
[2023-04-06] MEDS: Albuterol Sulfate (0.083%) 2.5 MG/3 ML VIAL.NEB 10 MG INHALE (19:06)
--- NOTE | 2023-04-06 20:10 | PC.NURSE ---
Patient calm and cooperative. Trial off of BiPAP. patient denies shortness of breath or pain at this time. Patient is no longer pulling at anything at this time.
[2023-04-06 21:15] LABS: VBG Base Excess 18.3 mmol/L; VBG HCO3 50 mmol/L (22-26); VBG pCO2 95 mmHg; VBG pH 7.33 (7.32-7.43); VBG pO2 85 mmHg
[2023-04-06 21:17] LABS: Venous Blood Gas Refer to POC result
--- NOTE | 2023-04-06 21:30 | PC.NURSE ---
Patient placed back on BiPAP per physician orders. Tolerating well at this time.
--- NOTE | 2023-04-06 22:15 | PC.NURSE ---
Dr. Tavares aware of Oxygen Sat. States is ok with Sat being 88-90% due to fact of having COPD and on BiPAP.
[2023-04-07] VITALS (46 sets, daily range): BP systolic 88–191; BP diastolic 18–79; PULSE 38–86; RESP 10–30; TEMP 36.1–37.1; O2SAT 90–98; BMI 40.3
[2023-04-07] MEDS: levoFLOXacin/D5W 500 MG/100 ML PIGGYBACK 100 MG IV (00:03)
--- NOTE | 2023-04-07 00:33 | PC.NURSE ---
Called to room for patient grabbing at IV upon inspection noted a whelp at infusion site Dr. Tavares aware. order to hold infusion at this time.
[2023-04-07 00:39] LABS: VBG Base Excess 20.1 mmol/L; VBG HCO3 50 mmol/L (22-26); VBG pCO2 84 mmHg; VBG pH 7.38 (7.32-7.43); VBG pO2 59 mmHg
[2023-04-07 00:40] LABS: Venous Blood Gas Refer to POC result
[2023-04-07] MEDS: methylPREDNISolone Sod Succ 125 MG/2 ML VIAL IVPUSH (00:46)
[2023-04-07] MEDS: Famotidine/PF 20 MG/2 ML VIAL IVPUSH (00:46)
[2023-04-07] MEDS: diphenhydrAMINE HCL 50 MG/ML VIAL 25 MG IVPUSH (00:46)
--- NOTE | 2023-04-07 00:59 | P.HPCC_ITS ---
History of Present Illness Date of Service: 04/07/23 Attending physician on admission: Riana Joseph Chief Complaint: Hypoxic Hypercarbic Respiratory Failure HPI: ?Per patient's chart, Patient was transfer [facility] after her son had found her on the floor status post fall and complaining of being drowsy , she appeared to be confused but complained of right-sided chest wall discomfort and abdominal discomfort.? Patient has underlying history of COPD and is O2 dependent at 2 L and sick cannula, history of leg edema on Lasix, hypothyroidism, anxiety, chronic constipation among others. During the ER workup, the patient's laboratories are overall unremarkable, including a normal lactic acid of 1.0. ?she had a trauma survey including cervical spine, head, chest, abdomen CT all of which are unremarkable for acute pathology.? She does have chronic lung nodules which according to report are the same size as they have had been on prior studies. ? ? Her initial blood gas showed a pH of 7.5, pCO2 of 60, PO2 175, HC03 of 48; is reported that her mental status was a +O x3 however he was suggested to keep her on BiPAP for a couple more hours, she had received some nebulizations and had been sleeping comfortably.? Patient did receive Levaquin x1 but started to develop a allergic reaction complaining of itching and it was noted that she had hives.? The patient received Solu-Medrol, Pepcid and Benadryl., subsequently about 6 hours later, the patient's mental status changed or worsen to the point that she was not able to communicate and was found to be obtunded the emergency room; her blood gas at 09:00 o'clock shows pH of 7.33, pCO2 of 95, PO2 85, HC03 50 and a base excess of 18.? Patient was placed on BiPAP and blood gas was recheck at 3 hours later without much improvement of her numbers as well as her mental status.? At this point, we were called to admit the patient to the ICU. ? ROS:? Unable to obtain patient is obtunded ? Past Medical History:? As above Restrictive lung disease Pneumonia ? Past Surgical History: Cholecystectomy ? Family history:? Noncontributory ? Social History:? Lives at home, never used tobacco.? No alcohol. ? CODE STATUS: FULL CODE ? Allergies: ?Penicillin (feigning) although is reported that she is allergic to potassium, she is taking at home Levaquin (hives) NEW ALLERGY ? Home Medications: See Med Rec ? PHYSICAL EXAM: VS: ?104/35, 80, 24, 94% on BiPAP 16/5/18/40% General:? Minimally alert to touch, following commands. ?Appears to be in moderate respiratory distress, confused. Skin:? Intact, no lesions, edema, erythema, clubbing or cyanosis.? No ulcers. HEENT:? Head is normocephalic, atraumatic, pupils equal round reactive to light accommodation bilaterally.? Extraocular movements appear intact.? Buccal mucosa is moist, Neck is supple without lymphadenopathy. Cardiac:? Clear S1-S2, no murmurs rubs or gallops. Pulmonary:? Diminished lung sounds bilaterally with slight coarseness at the bases, no crackles, wheezes or rhonchi. Abdomen:? Protuberant, positive bowel sounds in all 4 quadrants.? Soft, nontender, no rebound or guarding.? Musculoskeletal:? Moving all 4 extremities upon request a major joints, there is no crepitus or tenderness.? The strength is 5/5 bilaterally and throughout all 4 extremities.? There is no leg edema , no calf tenderness , no leg asymmetry.? Gait not assessed at this point. Neurologic:? As above, cranial nerves 2-12 are grossly intact.? No focal def icits noted. Vascular:? 2+ pulses upper and lower extremities distally. ? SIGNIFICANT LABORATORY DATA:? White blood cell 7.8, hemoglobin 14.5, hematocrit 49.4, platelets 311 .? Sodium 138, potassium 3.8, chloride 89, carbon dioxide 38, anion gap 15, BUN 12, creatinine 0.74. Venous blood gas pH 7.38, pCO2 84, PO2 59, HC03 50, base excess 20. Urinalysis negative.? U tox negative.? COVID negative. ? REVIEW OF IMAGES: CERVICAL SPINE, HEAD AND BRAIN CT WITHOUT IV CONTRAST. ?IMPRESSION: No acute intracranial process seen. No acute fracture, dislocation or subluxation seen in cervical spine. ? CT CHEST ABDOMEN AND PELVIS WITH IV CONTRAST IMPRESSION: Multiple lung masses are essentially stable. No new lung masses seen. Abnormal mediastinal adenopathy is stable. There is no rib fractures are thoracic spine fracture. ? Solitary liver lesion, hepatomegaly, cholecystectomy appears stable. ? Colonic diverticulosis without diverticulitis. Umbilical hernia. These are stable as well. ? There is right inguinal lymphadenopathy with enlarged right lymph node increased since the last exam 2015 ? EKG REVIEW: ?Sinus rhythm 70 beats per minute.? There is no ST elevations, no ST depressions.? There is a component 1st degree AV block.? QTC 432.? No comparison. ? ASSESSMENT : 1. ACUTE HYPOXIC/HYPERCARBIC RESPIRATORY FAILURE 2. CHRONICALLY LUMEN KNOWN BILATERAL LUNG MASSES WITH MEDIASTINAL LYMPHADENOPATHY AND LIVER MASS 3. HISTORY OF OBSTRUCTIVE SLEEP APNEA 4. HISTORY OF COPD WITHOUT ACTIVE EXACERBATION 5. MORBID OBESITY 6. HYPERTENSION LIKELY DUE DISTRESS 7. CHRONIC CONSTIPATION 8. HISTORY OF HYPOTHYROIDISM 9. COMPENSATORY RESPIRATORY ALKALOSIS 10. URINARY RETENTION OF UNKNOWN CHRONICITY. 11. Bradycardia with episodic Tachy ? SSS tachy fuad ? PLAN OF CARE: Admit the patient to ICU, monitor vital signs and I and O's, patient appears to be in distress will give her Dilaudid p.r.n. distress to decrease her work of breathing and anxiety which in turn will help her get bigger tidal volumes and decrease her respiratory rate and effort.? I do not think the patient needs antibiotics at this point for she is not febrile, there is no white count, there is no evidence of regular or postobstructive pneumonia. Electrophysiology eval More investigation should be done as far as what has been done to define the pul monary lung masses and whether or not this has been evaluated for underlying malignancy. Likely the patient needs ongoing sleep apnea is not known whether not she uses a mask at home. After given her Dilaudid, it was not necessary to give her any antihypertensives. I will increase the rate on the BiPAP which is now at 18, will go up to 22 or 24 to increase the CO2 expulsion, titrate the FiO2 to a goal sat of 90-90 2% at the most. Single dose of Diamox ordered.? Will repeat laboratories in the morning including venous blood gas.? Vazquez catheter placement. ? GI PROPHYLAXIS: ?Protonix IV DVT PROPHYLAXIS:? Heparin subQ q.8 hours. ? Critical care time used for critical evaluation of this patient, diagnosis, treatment and coordination of care, review her records and documentation TOTAL CRITICAL CARE TIME??? MIN . discussion and coordination with consultants, completely separate from any procedures performed. Patient's care was discussed in detail with Dr. Amanda.? He is aware of all the above as well as the plan of care for this patient. [facility] Past Medical History Medical History COPD (chronic obstructive pulmonary disease) Hypoxemia Obesity FRANKI (obstructive sleep apnea) Pneumonia Restrictive lung disease Surgical History Surgical History History of cholecystectomy Social History Social History Household Members: Unknown / Unable to assess Housing: Unknown / Unable to assess Do you presently have visiting nurse or other home services: Yes Unable to assess alcohol history related to: Unknown Alcohol intake: never Patient Tobacco Use Status: Never used Tobacco Smoked in Last 30 Days: No Use of substances other than those prescribed or required for medical reasons: Unknown Advance Directives: No Advance Directives Information Provided: Yes Do you have thoughts of harming others: None Do you have a plan to hurt others: No Plan Recently lost weight without trying: Unsure How much weight loss: Unsure Eating poorly because of decreased appetite: No Nutrition screen score: 4 Nutrition Risks: No Nutritional Risk Patient : No : No Poor oral hygiene: No Meds Allergies Allergy/AdvReac Type Severity Reaction Status Date / Time levofloxacin [From Levaquin] Allergy Intermediate HIVES Verified 04/07/23 03:37 Penicillins AdvReac Severe FAINTS Verified 04/06/23 13:46 Active Medications: Current Medications Acetazolamide (Acetazolamide Sodium 500 Mg Vial) 500 mg IVPUSH ONCE ONE Stop: 04/07/23 00:58 Pharmacy Consult (Consult Rx Perform Med Rec) 1 each MISCELLANE ONCE PRN PRN Reason: Consult order Home Medications Medication Instructions Recorded Confirmed Last Taken Type aspirin 81 mg tablet,delayed 81 mg PO DAILY 08/08/20 04/06/23 04/06/23 History release docusate sodium 100 mg capsule 100 mg PO BID PRN Constipation 08/08/20 04/06/23 Unknown History furosemide 40 mg tablet 120 mg PO DAILY 08/08/20 04/06/23 04/06/23 History levothyroxine 100 mcg tablet 100 mcg PO DAILY@0630 08/08/20 04/06/23 04/06/23 History paliperidone palmitate 234 mg/1.5 234 mg IM Q28D 08/08/20 04/06/23 04/04/23 History mL intramuscular syringe sertraline 50 mg tablet 50 mg PO DAILY 08/08/20 04/06/23 04/06/23 History albuterol sulfate 90 mcg/actuation 2 puff inhalation Q4-6H PRN 11/12/21 04/06/23 12/26/22 History aerosol inhaler (Ventolin HFA) Shortness Of Breath cyanocobalamin (vitamin B-12) 1 tab PO DAILY 10/28/22 04/06/23 04/06/23 History 1,000 mcg tablet (Vitamin B-12) potassium chloride 20 mEq 2 tab PO DAILY 10/28/22 04/06/23 04/06/23 History tablet,extended release loratadine 10 mg tablet (Loradamed) 10 mg PO DAILY 12/16/22 04/06/23 12/26/22 History metolazone 5 mg tablet 5 mg PO DAILY PRN GREATER THAN 3 04/06/23 04/06/23 Unknown History POUND WT GAIN IN 1 DAY Physical Exam Vital Signs: Vital Signs: Last Vital Signs Temp 98.6 F 04/07/23 00:00 Pulse 76 04/07/23 00:00 Resp 24 H 04/07/23 00:34 BP 92/18 L 04/07/23 00:00 Pulse Ox 93 04/07/23 00:00 O2 Del Method BiPAP 04/07/23 00:00 O2 Flow Rate 3 04/06/23 20:00 FiO2 36 04/07/23 00:00 Oxygen Flow Rate 2 04/06/23 13:41 BMI result Body Mass Index 40.3 Results Labs 04/06/23 14:24 04/06/23 14:22 Labs: Laboratory Results - last 24 hr 04/06/23 04/06/23 04/06/23 14:22 14:22 14:23 MCV MCH MCHC RDW Plt Count MPV Immature Gran % (Auto) Neut % (Auto) Lymph % (Auto) [place] % (Auto) Eos % (Auto) Baso % (Auto) Lymph # (Auto) [place] # (Auto) Eos # (Auto) Baso # (Auto) Abs Immat Gran (auto) Absolute Neuts (auto) Absolute Nucleated RBC Nucleated RBC % (auto) PT 11.6 INR 1.0 VBG pH VBG pCO2 VBG pO2 VBG HCO3 VBG O2 Saturation VBG Base Excess Anion Gap 15 Estim Creat Clear Calc 84.9 Estimated GFR > 60 Random Glucose 162 H Lactic Acid Calcium 10.1 D Magnesium 2.3 Total Bilirubin 0.7 AST 22 ALT 12 Alkaline Phosphatase 118 H Total Creatine Kinase 81 Troponin I High Sens < 2.7 B-Natriuretic Peptide Total Protein 7.8 Albumin 3.7 TSH Urine Color Urine Appearance Urine pH Ur Specific [place] Urine Protein Urine Glucose (UA) Urine Ketones Urine Blood Urine Nitrite Ur Leukocyte Esterase Urine Opiates Screen Urine Fentanyl Screen Ur Barbiturates Screen Ur Phencyclidine Scrn Ur Amphetamines Screen U Benzodiazepines Scrn Urine Cocaine Screen U Marijuana (THC) Screen Ethyl Alcohol COVID-19 ([place]) COVID-19 [employer] 04/06/23 04/06/23 04/06/23 14:23 14:24 14:24 MCV 93.2 MCH 27.4 MCHC 29.4 L RDW 16.2 H Plt Count 311 MPV 9.2 L Immature Gran % (Auto) 0.3 Neut % (Auto) 81.2 H Lymph % (Auto) 9.9 L [place] % (Auto) 7.2 Eos % (Auto) 1.0 Baso % (Auto) 0.4 Lymph # (Auto) 0.8 L [place] # (Auto) 0.6 Eos # (Auto) 0.1 Baso # (Auto) 0.0 Abs Immat Gran (auto) 0.02 Absolute Neuts (auto) 6.3 Absolute Nucleated RBC 0.000 Nucleated RBC % (auto) 0.0 PT INR VBG pH VBG pCO2 VBG pO2 VBG HCO3 VBG O2 Saturation VBG Base Excess Anion Gap Estim Creat Clear Calc Estimated GFR Random Glucose Lactic Acid 1.0 Calcium Magnesium Total Bilirubin AST ALT Alkaline Phosphatase Total Creatine Kinase Troponin I High Sens B-Natriuretic Peptide 66 Total Protein Albumin TSH Urine Color Urine Appearance Urine pH Ur Specific [place] Urine Protein Urine Glucose (UA) Urine Ketones Urine Blood Urine Nitrite Ur Leukocyte Esterase Urine Opiates Screen Urine Fentanyl Screen Ur Barbiturates Screen Ur Phencyclidine Scrn Ur Amphetamines Screen U Benzodiazepines Scrn Urine Cocaine Screen U Marijuana (THC) Screen Ethyl Alcohol COVID-19 ([place]) COVID-19 [employer] 04/06/23 04/06/23 04/06/23 14:25 15:54 17:01 MCV MCH MCHC RDW Plt Count MPV Immature Gran % (Auto) Neut % (Auto) Lymph % (Auto) [place] % (Auto) Eos % (Auto) Baso % (Auto) Lymph # (Auto) [place] # (Auto) Eos # (Auto) Baso # (Auto) Abs Immat Gran (auto) Absolute Neuts (auto) Absolute Nucleated RBC Nucleated RBC % (auto) PT INR VBG pH 7.50 H VBG pCO2 60 VBG pO2 175 VBG HCO3 48 H VBG O2 Saturation 100.0 VBG Base Excess 21.1 Anion Gap Estim Creat Clear Calc Estimated GFR Random Glucose Lactic Acid Calcium Magnesium Total Bilirubin AST ALT Alkaline Phosphatase Total Creatine Kinase Troponin I High Sens 2.8 B-Natriuretic Peptide Total Protein Albumin TSH Urine Color Urine Appearance Urine pH Ur Specific [place] Urine Protein Urine Glucose (UA) Urine Ketones Urine Blood Urine Nitrite Ur Leukocyte Esterase Urine Opiates Screen Urine Fentanyl Screen Ur Barbiturates Screen Ur Phencyclidine Scrn Ur Amphetamines Screen U Benzodiazepines Scrn Urine Cocaine Screen U Marijuana (THC) Screen Ethyl Alcohol COVID-19 ([place]) Negative COVID-19 [employer] See Note 04/06/23 04/06/23 04/06/23 17:01 17:01 17:01 MCV MCH MCHC RDW Plt Count MPV Immature Gran % (Auto) Neut % (Auto) Lymph % (Auto) [place] % (Auto) Eos % (Auto) Baso % (Auto) Lymph # (Auto) [place] # (Auto) Eos # (Auto) Baso # (Auto) Abs Immat Gran (auto) Absolute Neuts (auto) Absolute Nucleated RBC Nucleated RBC % (auto) PT INR VBG pH VBG pCO2 VBG pO2 VBG HCO3 VBG O2 Saturation VBG Base Excess Anion Gap Estim Creat Clear Calc Estimated GFR Random Glucose Lactic Acid Calcium Magnesium 2.3 Total Bilirubin AST ALT Alkaline Phosphatase Total Creatine Kinase Troponin I High Sens B-Natriuretic Peptide Total Protein Albumin TSH 0.89 Urine Color Urine Appearance Urine pH Ur Specific [place] Urine Protein Urine Glucose (UA) Urine Ketones Urine Blood Urine Nitrite Ur Leukocyte Esterase Urine Opiates Screen Urine Fentanyl Screen Ur Barbiturates Screen Ur Phencyclidine Scrn Ur Amphetamines Screen U Benzodiazepines Scrn Urine Cocaine Screen U Marijuana (THC) Screen Ethyl Alcohol < 10 COVID-19 ([place]) COVID-19 [employer] 04/06/23 04/06/23 04/06/23 17:38 17:38 21:08 MCV MCH MCHC RDW Plt Count MPV Immature Gran % (Auto) Neut % (Auto) Lymph % (Auto) [place] % (Auto) Eos % (Auto) Baso % (Auto) Lymph # (Auto) [place] # (Auto) Eos # (Auto) Baso # (Auto) Abs Immat Gran (auto) Absolute Neuts (auto) Absolute Nucleated RBC Nucleated RBC % (auto) PT INR VBG pH 7.33 VBG pCO2 95 VBG pO2 85 VBG HCO3 50 H VBG O2 Saturation 95.0 VBG Base Excess 18.3 Anion Gap Estim Creat Clear Calc Estimated GFR Random Glucose Lactic Acid Calcium Magnesium Total Bilirubin AST ALT Alkaline Phosphatase Total Creatine Kinase Troponin I High Sens B-Natriuretic Peptide Total Protein Albumin TSH Urine Color Yellow Urine Appearance Clear Urine pH 7.5 Ur Specific [place] 1.015 Urine Protein Negative Urine Glucose (UA) Negative Urine Ketones Negative Urine Blood Negative Urine Nitrite Negative Ur Leukocyte Esterase Negative Urine Opiates Screen Not Detected Urine Fentanyl Screen Not Detected Ur Barbiturates Screen Not Detected Ur Phencyclidine Scrn Not Detected Ur Amphetamines Screen Not Detected U Benzodiazepines Scrn Not Detected Urine Cocaine Screen Not Detected U Marijuana (THC) Screen Not Detected Ethyl Alcohol COVID-19 ([place]) COVID-19 [employer] 04/07/23 00:33 MCV MCH MCHC RDW Plt Count MPV Immature Gran % (Auto) Neut % (Auto) Lymph % (Auto) [place] % (Auto) Eos % (Auto) Baso % (Auto) Lymph # (Auto) [place] # (Auto) Eos # (Auto) Baso # (Auto) Abs Immat Gran (auto) Absolute Neuts (auto) Absolute Nucleated RBC Nucleated RBC % (auto) PT INR VBG pH 7.38 VBG pCO2 84 VBG pO2 59 VBG HCO3 50 H VBG O2 Saturation 85.0 VBG Base Excess 20.1 Anion Gap Estim Creat Clear Calc Estimated GFR Random Glucose Lactic Acid Calcium Magnesium Total Bilirubin AST ALT Alkaline Phosphatase Total Creatine Kinase Troponin I High Sens B-Natriuretic Peptide Total Protein Albumin TSH Urine Color Urine Appearance Urine pH Ur Specific [place] Urine Protein Urine Glucose (UA) Urine Ketones Urine Blood Urine Nitrite Ur Leukocyte Esterase Urine Opiates Screen Urine Fentanyl Screen Ur Barbiturates Screen Ur Phencyclidine Scrn Ur Amphetamines Screen U Benzodiazepines Scrn Urine Cocaine Screen U Marijuana (THC) Screen Ethyl Alcohol COVID-19 ([place]) COVID-19 Clin Com Imaging Radiologist's Impressions: Impressions Cervical Spine CT 04/06/23 15:50 IMPRESSION: No acute intracranial process seen. No acute fracture, dislocation or subluxation seen in cervical spine. Head CT 04/06/23 15:50 IMPRESSION: No acute intracranial process seen. No acute fracture, dislocation or subluxation seen in cervical spine. Abdomen/Pelvis CT 04/06/23 15:51 IMPRESSION: Multiple lung masses are essentially stable. No new lung masses seen. Abnormal mediastinal adenopathy is stable. There is no rib fractures are thoracic spine fracture. Solitary liver lesion, hepatomegaly, cholecystectomy appears stable. Colonic diverticulosis without diverticulitis. Umbilical hernia. These are stable as well. There is right inguinal lymphadenopathy with enlarged right lymph node increased since the last exam [address] 04/06/23 15:52 IMPRESSION: Multiple lung masses are essentially stable. No new lung masses seen. Abnormal mediastinal adenopathy is stable. There is no rib fractures are thoracic spine fracture. Solitary liver lesion, hepatomegaly, cholecystectomy appears stable. Colonic diverticulosis without diverticulitis. Umbilical hernia. These are stable as well. There is right inguinal lymphadenopathy with enlarged right lymph node increased since the last exam 2014 Assessment and Plan Time Spent With Patient Time: Total time managing care of this patient today ____ minutes.
[2023-04-07] MEDS: acetaZOLAMIDE sodium 500 MG VIAL IVPUSH (01:20)
[2023-04-07] MEDS: HYDROmorphone HCl 1 MG/ML SYRINGE IVPUSH ×4 (01:54→22:21)
[2023-04-07 04:35] LABS: Glucose, Whole Blood 137 mg/dL (60-115)
[2023-04-07 04:56] LABS: VBG HCO3 50 mmol/L (22-26); VBG pCO2 89 mmHg; VBG pH 7.35 (7.32-7.43); VBG pO2 86 mmHg
[2023-04-07 05:03] LABS: Venous Blood Gas Refer to POC result
[2023-04-07 05:06] LABS: Basophils Percent Auto 0.1 % (0-2); Eosinophils Percent Auto 0.1 % (0-4); Hematocrit 46.1 % (37.0-47.0); Hemoglobin 13.1 g/dl (12.0-16.0); Imm Gran Abs Auto 0.05 X10*3/uL (0.00-0.03); Imm Gran Pct Auto 0.3 % (0.0-0.4); Lymphocytes Absolute Auto 0.3 X10*3/uL (1.2-4.9); Lymphocytes Percent Auto 1.7 % (20-40); MANUAL DIFF FLAG SCAN; Mean Corpuscular HGB Conc 28.4 g/dl (31.0-35.0); Mean Corpuscular Hemoglobin 27.4 pg (27.0-33.0); Mean Corpuscular Volume 96.4 fL (80.0-98.0); Mean Platelet Volume 9.1 fL (9.4-12.3); Monocytes Absolute Auto 0.2 X10*3/uL (0.1-1.2); Monocytes Percent Auto 1.5 % (2-11); Neutrophils Absolute Auto 13.9 x10*3/uL (2.0-8.3); Neutrophils Percent Auto 96.3 % (45-73); Platelet Count 287 X10*3/uL (160-400); Red Blood Count 4.78 X10*6/uL (4.20-5.50); Red Cell Distribution Width 16.5 % (11.0-16.0); SCAN SMEAR FLAG 1; White Blood Count 14.4 X10*3/uL (4.8-10.8)
[2023-04-07 05:09] LABS: SLIDE REVIEW VERIFIED
[2023-04-07 05:26] LABS: Alanine Aminotransferase 7 U/L (0-31); Albumin Level 3.4 g/dL (3.5-5.0); Alkaline Phosphatase 105 U/L (39-117); Anion Gap 21 (12-20); Aspartate Amino Transferase 14 U/L (5-31); Bilirubin Total 0.5 mg/dL (0.0-1.0); Blood Urea Nitrogen 12 mg/dL (9-16); Calcium 9.9 mg/dL (8.4-10.2); Carbon Dioxide 37 mmol/L (22-29); Chloride 97 mmol/L (96-108); Creatinine Clr Calc Pharmacy 84.9; Estimated Glomerular Filt Rate > 60; Glucose Random 144 mg/dL (60-115); Potassium 3.6 mmol/L (3.3-5.1); Sodium 151 mmol/L (135-145); Total Protein 7.2 g/dL (6.5-8.0)
[2023-04-07] MEDS: Heparin Sodium,Porcine 5,000 UNIT/ML VIAL 5000 UNIT SUBCUT ×3 (05:32→20:52)
[2023-04-07] MEDS: Pantoprazole Sodium 40 MG/10 ML VIAL IVPUSH (05:33)
[2023-04-07] MEDS: dexmedeTOMIDidine HCL/NS 400 MCG/100 ML INFUS..BTL 12.5 MCG IVCONT (06:20)
--- NOTE | 2023-04-07 06:36 | PC.NURSE ---
pt became agitated removing bipap masking and attempting to hit staff when attempting to reapply. pt attempting out of bed hitting kicking staff ,decreased 02 sats 84% RA, increase RR new order for dilaudid and precedex drip. restraints applied, new IV placed. placed on 2L NC sat up to 90% RT at bedside to attempt to place on bipap. Md on bedside
--- NOTE | 2023-04-07 07:30 | P.PNCC_ITS ---
Subjective Subjective Date of Service: 04/07/23 Interval History: 62-year-old morbidly obese female clear-cut obesity/ hypoventilation as well as obstructive sleep apnea comes in with loss of consciousness stand on the floor bruise over the right eye and became increasingly agitated and confused clearly delirious blood gas showing an acute on chronic hypercapnic respiratory failure and initially tried on BiPAP failing with actually rising pCO2 worsening respiratory acidosis but then eventually became combative and uncooperative and then long discussion held with the family including the sister who is next of kin in proxy who said then basically do whatever we needed to and rescinded her DNR and DNI and agreed to proceed with intubation and central line placement which we did without complication and CVP was about 12 and there was no apparent parenchymal infiltrate on the at CT scan but 2 areas almost like a pseudotumor ID I do believe they represent small pleural effusions and mostly within the fissures both lower lobes but intubation was without come complication with ge tting some tannish secretions initially the patient had a tremendous amount of diaphragmatic effort and a markedly prolonged expiratory time and unequivocally the no had some significant airway disease I am sure in in no small part playing a role in her respiratory failure so she is on aggressive and an albuterol p.r.n. treatments along with DuoNebs steroids were started empiric antibiotics initially with Levaquin which caused urticaria so that is now part of her allergy history was then given doxycycline and will await Gram stain results of the sputum Critical Care Time (minutes): 45 Physical Exam Vital Signs: Vital Signs: Last Vital Signs Temp 97.4 F 04/07/23 04:00 Pulse 49 L 04/07/23 07:00 Resp 12 04/07/23 07:00 BP 90/50 L 04/07/23 07:00 Pulse Ox 95 04/07/23 07:00 O2 Del Method Oxymask 04/07/23 07:00 O2 Flow Rate 15 04/07/23 07:00 FiO2 100 04/07/23 07:00 Oxygen Flow Rate 2 04/06/23 13:41 BMI result Body Mass Index 40.3 1 sedated and intubated respiratory effort was absolutely normal appearing with good bilateral carotid upstrokes cardiac exam without gallops or significant murmurs echo is pending abdomen soft nontender with no organomegaly warm well perfused with no edema no acrocyanosis Objective Data Labs 04/07/23 04:48 04/07/23 04:48 Labs: Laboratory Results - last 24 hr 04/06/23 04/06/23 04/06/23 14:22 14:22 14:23 WBC RBC Hgb Hct MCV MCH MCHC RDW Plt Count MPV Immature Gran % (Auto) Neut % (Auto) Lymph % (Auto) [place] % (Auto) Eos % (Auto) Baso % (Auto) Lymph # (Auto) [place] # (Auto) Eos # (Auto) Baso # (Auto) Abs Immat Gran (auto) Absolute Neuts (auto) Absolute Nucleated RBC Nucleated RBC % (auto) Smear Tech's Comments PT 11.6 INR 1.0 VBG pH VBG pCO2 VBG pO2 VBG HCO3 VBG O2 Saturation VBG Base Excess Sodium 138 Potassium 3.7 Chloride 89 L Carbon Dioxide 38 H Anion Gap 15 BUN 12 Creatinine 0.74 Estim Creat Clear Calc 84.9 Estimated GFR > 60 POC Glucose Random Glucose 162 H Lactic Acid Calcium 10.1 D Magnesium 2.3 Total Bilirubin 0.7 AST 22 ALT 12 Alkaline Phosphatase 118 H Total Creatine Kinase 81 Troponin I High Sens < 2.7 B-Natriuretic Peptide Total Protein 7.8 Albumin 3.7 TSH Urine Color Urine Appearance Urine pH Ur Specific [place] Urine Protein Urine Glucose (UA) Urine Ketones Urine Blood Urine Nitrite Ur Leukocyte Esterase Urine Opiates Screen Urine Fentanyl Screen Ur Barbiturates Screen Ur Phencyclidine Scrn Ur Amphetamines Screen U Benzodiazepines Scrn Urine Cocaine Screen U Marijuana (THC) Screen Ethyl Alcohol COVID-19 ([place]) COVID-19 Clin Com 04/06/23 04/06/23 04/06/23 14:23 14:24 14:24 WBC 7.8 RBC 5.30 Hgb 14.5 Hct 49.4 H MCV 93.2 MCH 27.4 MCHC 29.4 L RDW 16.2 H Plt Count 311 MPV 9.2 L Immature Gran % (Auto) 0.3 Neut % (Auto) 81.2 H Lymph % (Auto) 9.9 L [place] % (Auto) 7.2 Eos % (Auto) 1.0 Baso % (Auto) 0.4 Lymph # (Auto) 0.8 L [place] # (Auto) 0.6 Eos # (Auto) 0.1 Baso # (Auto) 0.0 Abs Immat Gran (auto) 0.02 Absolute Neuts (auto) 6.3 Absolute Nucleated RBC 0.000 Nucleated RBC % (auto) 0.0 Smear Tech's Comments PT INR VBG pH VBG pCO2 VBG pO2 VBG HCO3 VBG O2 Saturation VBG Base Excess Sodium Potassium Chloride Carbon Dioxide Anion Gap BUN Creatinine Estim Creat Clear Calc Estimated GFR POC Glucose Random Glucose Lactic Acid 1.0 Calcium Magnesium Total Bilirubin AST ALT Alkaline Phosphatase Total Creatine Kinase Troponin I High Sens B-Natriuretic Peptide 66 Total Protein Albumin TSH Urine Color Urine Appearance Urine pH Ur Specific [place] Urine Protein Urine Glucose (UA) Urine Ketones Urine Blood Urine Nitrite Ur Leukocyte Esterase Urine Opiates Screen Urine Fentanyl Screen Ur Barbiturates Screen Ur Phencyclidine Scrn Ur Amphetamines Screen U Benzodiazepines Scrn Urine Cocaine Screen U Marijuana (THC) Screen Ethyl Alcohol COVID-19 ([place]) COVID-[employer] 04/06/23 04/06/23 04/06/23 14:25 15:54 17:01 WBC RBC Hgb Hct MCV MCH MCHC RDW Plt Count MPV Immature Gran % (Auto) Neut % (Auto) Lymph % (Auto) [place] % (Auto) Eos % (Auto) Baso % (Auto) Lymph # (Auto) [place] # (Auto) Eos # (Auto) Baso # (Auto) Abs Immat Gran (auto) Absolute Neuts (auto) Absolute Nucleated RBC Nucleated RBC % (auto) Smear Tech's Comments PT INR VBG pH 7.50 H VBG pCO2 60 VBG pO2 175 VBG HCO3 48 H VBG O2 Saturation 100.0 VBG Base Excess 21.1 Sodium Potassium Chloride Carbon Dioxide Anion Gap BUN Creatinine Estim Creat Clear Calc Estimated GFR POC Glucose Random Glucose Lactic Acid Calcium Magnesium Total Bilirubin AST ALT Alkaline Phosphatase Total Creatine Kinase Troponin I High Sens 2.8 B-Natriuretic Peptide Total Protein Albumin TSH Urine Color Urine Appearance Urine pH Ur Specific [place] Urine Protein Urine Glucose (UA) Urine Ketones Urine Blood Urine Nitrite Ur Leukocyte Esterase Urine Opiates Screen Urine Fentanyl Screen Ur Barbiturates Screen Ur Phencyclidine Scrn Ur Amphetamines Screen U Benzodiazepines Scrn Urine Cocaine Screen U Marijuana (THC) Screen Ethyl Alcohol COVID-19 ([place]) Negative [employer] See Note 04/06/23 04/06/23 04/06/23 17:01 17:01 17:01 WBC RBC Hgb Hct MCV MCH MCHC RDW Plt Count MPV Immature Gran % (Auto) Neut % (Auto) Lymph % (Auto) [place] % (Auto) Eos % (Auto) Baso % (Auto) Lymph # (Auto) [place] # (Auto) Eos # (Auto) Baso # (Auto) Abs Immat Gran (auto) Absolute Neuts (auto) Absolute Nucleated RBC Nucleated RBC % (auto) Smear Tech's Comments PT INR VBG pH VBG pCO2 VBG pO2 VBG HCO3 VBG O2 Saturation VBG Base Excess Sodium Potassium Chloride Carbon Dioxide Anion Gap BUN Creatinine Estim Creat Clear Calc Estimated GFR POC Glucose Random Glucose Lactic Acid Calcium Magnesium 2.3 Total Bilirubin AST ALT Alkaline Phosphatase Total Creatine Kinase Troponin I High Sens B-Natriuretic Peptide Total Protein Albumin TSH 0.89 Urine Color Urine Appearance Urine pH Ur Specific [place] Urine Protein Urine Glucose (UA) Urine Ketones Urine Blood Urine Nitrite Ur Leukocyte Esterase Urine Opiates Screen Urine Fentanyl Screen Ur Barbiturates Screen Ur Phencyclidine Scrn Ur Amphetamines Screen U Benzodiazepines Scrn Urine Cocaine Screen U Marijuana (THC) Screen Ethyl Alcohol < 10 COVID-19 ([place]) COVID-19 Clin Com 04/06/23 04/06/23 04/06/23 17:38 17:38 21:08 WBC RBC Hgb Hct MCV MCH MCHC RDW Plt Count MPV Immature Gran % (Auto) Neut % (Auto) Lymph % (Auto) [place] % (Auto) Eos % (Auto) Baso % (Auto) Lymph # (Auto) [place] # (Auto) Eos # (Auto) Baso # (Auto) Abs Immat Gran (auto) Absolute Neuts (auto) Absolute Nucleated RBC Nucleated RBC % (auto) Smear Tech's Comments PT INR VBG pH 7.33 VBG pCO2 95 VBG pO2 85 VBG HCO3 50 H VBG O2 Saturation 95.0 VBG Base Excess 18.3 Sodium Potassium Chloride Carbon Dioxide Anion Gap BUN Creatinine Estim Creat Clear Calc Estimated GFR POC Glucose Random Glucose Lactic Acid Calcium Magnesium Total Bilirubin AST ALT Alkaline Phosphatase Total Creatine Kinase Troponin I High Sens B-Natriuretic Peptide Total Protein Albumin TSH Urine Color Yellow Urine Appearance Clear Urine pH 7.5 Ur Specific [place] 1.015 Urine Protein Negative Urine Glucose (UA) Negative Urine Ketones Negative Urine Blood Negative Urine Nitrite Negative Ur Leukocyte Esterase Negative Urine Opiates Screen Not Detected Urine Fentanyl Screen Not Detected Ur Barbiturates Screen Not Detected Ur Phencyclidine Scrn Not Detected Ur Amphetamines Screen Not Detected U Benzodiazepines Scrn Not Detected Urine Cocaine Screen Not Detected U Marijuana (THC) Screen Not Detected Ethyl Alcohol COVID-19 ([place]) COVID-19 [employer] 04/07/23 04/07/23 04/07/23 00:33 04:31 04:47 WBC RBC Hgb Hct MCV MCH MCHC RDW Plt Count MPV Immature Gran % (Auto) Neut % (Auto) Lymph % (Auto) [place] % (Auto) Eos % (Auto) Baso % (Auto) Lymph # (Auto) [place] # (Auto) Eos # (Auto) Baso # (Auto) Abs Immat Gran (auto) Absolute Neuts (auto) Absolute Nucleated RBC Nucleated RBC % (auto) Smear Tech's Comments PT INR VBG pH 7.38 7.35 VBG pCO2 84 89 VBG pO2 59 86 VBG HCO3 50 H 50 H VBG O2 Saturation 85.0 96.0 VBG Base Excess 20.1 19.0 Sodium Potassium Chloride Carbon Dioxide Anion Gap BUN Creatinine Estim Creat Clear Calc Estimated GFR POC Glucose 137 H Random Glucose Lactic Acid Calcium Magnesium Total Bilirubin AST ALT Alkaline Phosphatase Total Creatine Kinase Troponin I High Sens B-Natriuretic Peptide Total Protein Albumin TSH Urine Color Urine Appearance Urine pH Ur Specific [place] Urine Protein Urine Glucose (UA) Urine Ketones Urine Blood Urine Nitrite Ur Leukocyte Esterase Urine Opiates Screen Urine Fentanyl Screen Ur Barbiturates Screen Ur Phencyclidine Scrn Ur Amphetamines Screen U Benzodiazepines Scrn Urine Cocaine Screen U Marijuana (THC) Screen Ethyl Alcohol COVID-19 ([place]) COVID-19 [employer] 04/07/23 04/07/23 04:48 04:48 WBC 14.4 H RBC 4.78 Hgb 13.1 Hct 46.1 MCV 96.4 MCH 27.4 MCHC 28.4 L RDW 16.5 H Plt Count 287 MPV 9.1 L Immature Gran % (Auto) 0.3 Neut % (Auto) 96.3 H Lymph % (Auto) 1.7 L [place] % (Auto) 1.5 L Eos % (Auto) 0.1 Baso % (Auto) 0.1 Lymph # (Auto) 0.3 L [place] # (Auto) 0.2 Eos # (Auto) 0.0 Baso # (Auto) 0.0 Abs Immat Gran (auto) 0.05 H Absolute Neuts (auto) 13.9 H Absolute Nucleated RBC 0.000 Nucleated RBC % (auto) 0.0 Smear Tech's Comments VERIFIED PT INR VBG pH VBG pCO2 VBG pO2 VBG HCO3 VBG O2 Saturation VBG Base Excess Sodium 151 H Potassium 3.6 Chloride 97 Carbon Dioxide 37 H Anion Gap 21 H BUN 12 Creatinine 0.74 Estim Creat Clear Calc 84.9 Estimated GFR > 60 POC Glucose Random Glucose 144 H Lactic Acid Calcium 9.9 Magnesium Total Bilirubin 0.5 AST 14 ALT 7 Alkaline Phosphatase 105 Total Creatine Kinase Troponin I High Sens B-Natriuretic Peptide Total Protein 7.2 Albumin 3.4 L TSH Urine Color Urine Appearance Urine pH Ur Specific [place] Urine Protein Urine Glucose (UA) Urine Ketones Urine Blood Urine Nitrite Ur Leukocyte Esterase Urine Opiates Screen Urine Fentanyl Screen Ur Barbiturates Screen Ur Phencyclidine Scrn Ur Amphetamines Screen U Benzodiazepines Scrn Urine Cocaine Screen U Marijuana (THC) Screen Ethyl Alcohol COVID-19 ([place]) COVID-19 Clin Com Progress Note: A&P Assessment and plan (1) Syncope: Status: Acute (2) Fall: Status: Acute (3) Hypercapnic respiratory failure: Status: Acute (4) Restrictive lung disease: Status: Acute (5) Hypoxemia: Status: Acute (6) COPD (chronic obstructive pulmonary disease): Status: Acute (7) FRANKI (obstructive sleep apnea): Status: Acute (8) Obesity: Status: Acute (9) Obesity with alveolar hypoventilation: Status: Acute (10) Hypernatremia: Status: Acute (11) Acute metabolic encephalopathy: Status: Acute Plan plan at this point is to await the sputum results respiratory panel continue replacing free water recheck serum sodium level and a recheck on blood gas for degree of pCO2 improvement Quality Stroke Does the patient have a stroke diagnosis?: No VTE Prior VTE?: No VTE Risk Level:: Medical - moderate - high VTE Device Contraindication: N/A - Device Ordered VTE Drug Contraindication: N/A - Med Ordered
[2023-04-07] MEDS: EPINEPHrine 1 MG/ML VIAL 0.3 MG SUBCUT (07:51)
[2023-04-07] MEDS: KCl 20 mEq in 5 % Dextrose 20 MEQ/1,000 ML IV.SOLN 80 MEQ IVCONT (08:02)
[2023-04-07] MEDS: Albuterol/Iprat 2.5/0.5MG 3 ML AMPUL.NEB INHALE ×5 (08:15→23:37)
[2023-04-07] MEDS: propofoL 200 MG/20 ML VIAL 50 MG IVPUSH (09:25)
[2023-04-07] MEDS: Rocuronium Bromide 50 MG/5 ML VIAL IVPUSH (09:26)
[2023-04-07] MEDS: propofoL 1,000 MG/100 ML VIAL 18 MG IVCONT ×2 (09:34→13:20)
--- NOTE | 2023-04-07 09:45 | MHC.CM.PN ---
IMM DELIVERED MEDICARE RIGHTS/FORM EXPLAINED TO SISTER (VIA [employer] INTERPRETING) WHITE COPY SENT WITH SISTER/YELLOW COPY TO CHART. PT LIVES ALONE IN AN APT. 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 PT USES [facility] NEEDED FOR MOBILITY AND HAS 02 AT NIGHT/PRN . VENDOR IS [employer]. +COVID VAX + HCP PER HER SISTER (SHE STATES SHE IS THE HCP)AND COPY IS AT [facility] (CLOSED FOR HOLIDAY) CM WILL CONTINUE TO ATTEMPT TO RETRIEVE A COPY. PCP YOLA [facility] AT [facility]. DP: HOME WITH FAMILY SUPPORT/RESUMPTION OF SERVICES. RETURN REFERRAL SENT TO [facility]. FAMILY WILL TRANSPORT AT [place]. CM WILL CONTINUE TO FOLLOW FOR DC NEEDS/PLAN.
--- NOTE | 2023-04-07 10:44 | W.PM.CCHP ---
Procedures Date of Service Date of Service: 04/07/23 Central Line Placement Left IJ: Central Line Comments: After sterile preparation and draping in usual fashion and utilizing ultrasound guidance gained easy access to the left internal jugular vein passing retrograde with Seldinger technique a J tipped guidewire over which a triple-lumen 20 cm length central venous pressure catheter was in place with tip at the junction of the superior vena cava and right atrium without pneumothorax no complication no bleeding issues Consent for Procedure: Elective - informed consent obtained Time out performed: Yes Sterile Technique Used: Yes Patient placed on monitor/pulse ox: Yes MD prep: mask, gown and gloves Central line prep: Chlorhexidine scrub Local anesthesia used: lidocaine 1% Ultrasound used for placement: Yes Central line lumen inserted: triple Post procedure: sutured in place, good blood return, all ports aspirated, flushed, capped and sterile dressing applied Post procedure x-ray: tip of catheter in good position and no pneumothorax seen Patient tolerated procedure: well and no complications
--- NOTE | 2023-04-07 10:46 | W.PM.CCHP ---
Procedures Date of Service Date of Service: 04/07/23 Intubation Intubation Comments: because of obstructive sleep apnea and obesity hypoventilation patient presented with acute on chronic hypercarbic respiratory failure remains delirious and on approachable requiring intubation also has severe airway manifestations SOS explained to the family they rescinded the DNI and we proceeded with glide scope guided intubation within 4. [place] scope blade and a 7.0 endotracheal tube with excellent visualization of the vocal cords placement at 23.5 cm with excellent end-tidal CO2 response and good bilateral breath sounds the tube was secured in that position without complication and then placed on the ventilator Consent for Procedure: Elective - informed consent obtained Time out performed: Yes Sedative: propofol Paralytic: rocuronium Laryngoscope: fiber optic video scope ET tube size: 7 ET tube uncuffed: No Tube secured depth (cm): 24 Tube secured location: lips Tube placement confirmation: visualized tube passing through cords, equal breath sounds bilaterally, no breath sounds over epigastrium and confirmation by capnometry Patient tolerated procedure: well and no complications Intubation complications: none
--- NOTE | 2023-04-07 10:58 | MHC.CLN ---
PT IS INTUBATED AND SEDATED IF TF NEEDED; RECOMMEND PROMOTE AT MAX GOAL RATE 30ML/HR TO PROVIDE 720KCALS (1195KCALS WITH SEDATION; 23KCALS/KG), 45G PROTEIN, 604ML FREE WATER FROM FORMULA MONITOR TOLERANCE, RESIDUALS AND LYTES SEE FULL CLINICAL NUTRITION ASSESSMENT
[2023-04-07] MEDS: dexmedeTOMIDidine HCL/NS 400 MCG/100 ML INFUS..BTL IVCONT (11:34)
[2023-04-07 11:53] LABS: Glucose, Whole Blood 197 mg/dL (60-115)
[2023-04-07 14:12] LABS: C Reactive Protein 11.82 mg/dL (< or = 0.50)
[2023-04-07] MEDS: methylPREDNISolone Sod Succ 40 MG/ML VIAL IVPUSH (14:12)
[2023-04-07] MEDS: Levothyroxine Sodium 100 MCG/5 ML VIAL 50 MCG IVPUSH (14:12)
[2023-04-07] MEDS: Doxycycline Hyclate 100 MG in 0.9 % Sodium Chloride 250 ML 166.67 MG IV (14:15)
[2023-04-07 14:31] LABS: Erythrocyte Sedimentation Rate 49 MM/HR (0-20)
--- NOTE | 2023-04-07 14:49 | PC.NURSE ---
Assumed care at 0700. Patient sedated on precedex gtt, arousable to shaking and physical stimuli. HR sustaining 40s-50s, MD aware, precedex gtt titrated per EMAR. SBP 80s-90s, MD aware. Patient on oxymask 15L, then placed on HFNC 50L 40% by RT per MD, O2 sats sustaining >88%. Patient agitated, uncooperative, not following commands. Patient pulling at lines/oxygen, placed in restraints by previous nurse, continued need for soft wrist restraints as assessed by this RN. Patient HR reaching low of 37, not sustaining, precedex gtt paused, MD aware. Discussion regarding code status held between receivable executive and patient HCP. patient code status changed to full code. Decision made by MD to intubate patient. 50 mg propofol IVP and 50 mg rocuronium given during intubation. Patient intubated at 0934 with 7.0 ETT, 24 cm at the lip. Patient placed on AC settings 20/400/5/40%, tolerating well, O2 sats sustaining >88%. Precedex gtt restarted per MD. HR continues to sustain 40s-50s, MD aware, no new orders at this time. Patient's family updated by this RN. Safety maintained throughout. Prevalon system in place, oral care and repositioning Q2HR. Care ongoing.
[2023-04-07 17:16] LABS: VBG Base Excess 10.7 mmol/L; VBG HCO3 33 mmol/L (22-26); VBG pCO2 36 mmHg; VBG pH 7.56 (7.32-7.43); VBG pO2 44 mmHg
[2023-04-07] MEDS: propofoL 1,000 MG/100 ML VIAL 30 MG IVCONT ×2 (17:37→23:27)
[2023-04-07 17:42] LABS: Glucose, Whole Blood 190 mg/dL (60-115)
[2023-04-07 18:05] LABS: Anion Gap 15 (12-20); Blood Urea Nitrogen 14 mg/dL (9-16); Calcium 9.9 mg/dL (8.4-10.2); Carbon Dioxide 30 mmol/L (22-29); Chloride 98 mmol/L (96-108); Creatinine Clr Calc Pharmacy 82.7; Estimated Glomerular Filt Rate > 60; Glucose Random 185 mg/dL (60-115); Potassium 2.5 mmol/L (3.3-5.1); Sodium 140 mmol/L (135-145)
[2023-04-07] MEDS: KCl 40 mEq in 5% Dex/0.45% Sod 40 MEQ/1,000 ML IV.SOLN 80 MEQ IVCONT (18:17)
[2023-04-07 19:09] LABS: Venous Blood Gas Refer to POC result
[2023-04-07] MEDS: propofoL 1,000 MG/100 ML VIAL 24 MG IVCONT (20:50)
[2023-04-07] MEDS: Norepinephrine Bitartrate/D5W 8 MG/250 ML PLAST..BAG 9.38 MG IV (21:59)
[2023-04-07] MEDS: LORazepam 2 MG/ML VIAL 1 MG IVPUSH (22:03)
[2023-04-07 23:35] LABS: Glucose, Whole Blood 211 mg/dL (60-115)
[2023-04-08] VITALS (37 sets, daily range): BP systolic 84–173; BP diastolic 36–85; PULSE 38–83; RESP 20–23; TEMP 35.9–36.9; O2SAT 91–98; BMI 43.0
[2023-04-08] MEDS: Doxycycline Hyclate 100 MG in 0.9 % Sodium Chloride 250 ML 166.67 MG IV ×2 (01:12→13:22)
[2023-04-08] MEDS: methylPREDNISolone Sod Succ 40 MG/ML VIAL IVPUSH ×2 (01:13→13:22)
[2023-04-08 02:21] LABS: MANUAL DIFF FLAG NO
[2023-04-08 02:23] LABS: Basophils Percent Auto 0.2 % (0-2); Eosinophils Percent Auto 0.2 % (0-4); Hematocrit 41.8 % (37.0-47.0); Hemoglobin 12.6 g/dl (12.0-16.0); Imm Gran Abs Auto 0.05 X10*3/uL (0.00-0.03); Imm Gran Pct Auto 0.4 % (0.0-0.4); Lymphocytes Absolute Auto 0.7 X10*3/uL (1.2-4.9); Lymphocytes Percent Auto 5.4 % (20-40); Mean Corpuscular HGB Conc 30.1 g/dl (31.0-35.0); Mean Corpuscular Hemoglobin 27.2 pg (27.0-33.0); Mean Corpuscular Volume 90.3 fL (80.0-98.0); Mean Platelet Volume 9.5 fL (9.4-12.3); Neutrophils Absolute Auto 11.2 x10*3/uL (2.0-8.3); Neutrophils Percent Auto 85.8 % (45-73); Platelet Count 316 X10*3/uL (160-400); Red Blood Count 4.63 X10*6/uL (4.20-5.50); Red Cell Distribution Width 16.1 % (11.0-16.0)
[2023-04-08 02:28] LABS: Venous Blood Gas Refer to POC result
[2023-04-08 02:29] LABS: VBG Base Excess 10.5 mmol/L; VBG HCO3 33 mmol/L (22-26); VBG pCO2 37 mmHg; VBG pH 7.55 (7.32-7.43); VBG pO2 52 mmHg
[2023-04-08 02:44] LABS: Albumin Level 3.1 g/dL (3.5-5.0); Anion Gap 13 (12-20); Blood Urea Nitrogen 13 mg/dL (9-16); Calcium 9.7 mg/dL (8.4-10.2); Carbon Dioxide 26 mmol/L (22-29); Chloride 100 mmol/L (96-108); Creatinine Clr Calc Pharmacy 84.9; Estimated Glomerular Filt Rate > 60; Glucose Random 211 mg/dL (60-115); Phosphorus 1.2 mg/dL (2.7-4.5); Potassium 2.4 mmol/L (3.3-5.1); Sodium 137 mmol/L (135-145)
[2023-04-08] MEDS: propofoL 1,000 MG/100 ML VIAL 24 MG IVCONT ×3 (02:47→09:45)
[2023-04-08] MEDS: Albuterol/Iprat 2.5/0.5MG 3 ML AMPUL.NEB INHALE ×6 (02:52→23:58)
[2023-04-08] MEDS: Midazolam HCl/PF 2 MG/2 ML VIAL IVPUSH (02:59)
[2023-04-08] MEDS: Potassium Chloride/H20 20 MEQ/100 ML PIGGYBACK 50 MEQ IV (03:01)
[2023-04-08] MEDS: Potassium Chloride Packet 20 MEQ PACKET 40 MEQ PO ×2 (03:50→06:15)
[2023-04-08] MEDS: KCl 40 mEq in 5% Dex/0.45% Sod 40 MEQ/1,000 ML IV.SOLN 80 MEQ IVCONT ×2 (05:27→16:59)
[2023-04-08] MEDS: Levothyroxine Sodium 100 MCG/5 ML VIAL 50 MCG IVPUSH (05:38)
[2023-04-08] MEDS: Pantoprazole Sodium 40 MG/10 ML VIAL IVPUSH (05:38)
[2023-04-08] MEDS: Heparin Sodium,Porcine 5,000 UNIT/ML VIAL 5000 UNIT SUBCUT ×3 (05:38→21:10)
[2023-04-08 05:43] LABS: Glucose, Whole Blood 230 mg/dL (60-115)
[2023-04-08] MEDS: LORazepam 2 MG/ML VIAL 1 MG IVPUSH ×2 (08:47→22:42)
[2023-04-08 09:08] LABS: Adenovirus PCR Not Detected (Not Detect.)
[2023-04-08 09:09] LABS: Bordetella parapertussis PCR Not Detected (Not Detect.); Bordetella pertussis PCR Not Detected (Not Detect.); Chlamydia pneumoniae PCR Not Detected (Not Detect.); Coronavirus 229E PCR Not Detected (Not Detect.); Coronavirus HKU1 PCR Not Detected (Not Detect.); Coronavirus NL63 PCR Not Detected (Not Detect.)
[2023-04-08 09:10] LABS: Coronavirus OC43 PCR Not Detected (Not Detect.); Human metapneumovirus PCR Not Detected (Not Detect.); Influenza A PCR Not Detected (Not Detect.); Influenza B PCR Not Detected (Not Detect.); Mycoplasma pneumoniae PCR Not Detected (Not Detect.); Parainfluenza 1 PCR Not Detected (Not Detect.); Parainfluenza 2 PCR Not Detected (Not Detect.); Parainfluenza 3 PCR Not Detected (Not Detect.); Parainfluenza 4 PCR Not Detected (Not Detect.); RSV PCR Not Detected (Not Detect.); Rhino/Enterovirus PCR Not Detected (Not Detect.); SARS-CoV-2 PCR Not Detected (Not Detect.)
[2023-04-08 10:45] LABS: Anion Gap 11 (12-20); Blood Urea Nitrogen 12 mg/dL (9-16); Calcium 9.7 mg/dL (8.4-10.2); Carbon Dioxide 25 mmol/L (22-29); Chloride 106 mmol/L (96-108); Creatinine Clr Calc Pharmacy 91.9; Estimated Glomerular Filt Rate > 60; Glucose Random 194 mg/dL (60-115); Potassium 3.5 mmol/L (3.3-5.1); Sodium 138 mmol/L (135-145)
[2023-04-08 11:42] LABS: Glucose, Whole Blood 180 mg/dL (60-115)
--- NOTE | 2023-04-08 12:09 | P.PNCC_ITS ---
Subjective Subjective Date of Service: 04/08/23 Interval History: 62-year-old obese female history of obstructive sleep apnea but not much in the way of chronic carbon dioxide retention came in with acute hypercarbic respiratory failure was found on the floor face down so there was a loss of consciousness and this has fully reversed on the on the ventilator but she had an agitated delirium when she came in and it was not safe to use any form of noninvasive ventilation plus she would not allow the Slee intubated and this no apparent infectious source but she is just being covered empirically even though they lung parenchyma by CT scan was negative and her toxicology screen was nega tive but clearly she was in status asthmaticus and she is currently on bronchodilator therapy along with steroids and some basic antibiotic coverage initially on dexmedetomidine then eventually just on propofol she maintained a significant degree of bradycardia without specific symptom stable CVP averaging between 10 and 12 and then all the sudden a very profound first-degree AV block which periodically would revert to a normal ND interval and my supposition was that she was conducting antegrade either via the slow pathway alternating with the fast pathway to account for this difference in the 1st degree AV block she has less than a 10 L minute ventilatory requirement and she is on FiO2 of 40% without diaphragmatic effort so the status asthmaticus seems to be improving we might even be close to a position to wean sedation Critical Care Time (minutes): 45 Physical Exam Vital Signs: Vital Signs: Last Vital Signs Temp 98.5 F 04/08/23 08:00 Pulse 83 04/08/23 12:00 Resp 23 H 04/08/23 12:00 BP 127/53 L 04/08/23 12:00 Pulse Ox 98 04/08/23 12:00 O2 Del Method Mechanical Ventil ation 04/08/23 12:00 O2 Flow Rate 50 04/07/23 09:00 FiO2 40 04/08/23 12:00 Oxygen Flow Rate 2 04/06/23 13:41 BMI result Body Mass Index 43.0 sedated and intubated stable cardiac exam with good bilateral carotid upstrokes no gallops no murmurs abdomen soft no organomegaly chest without adventitious sounds no peripheral edema no acrocyanosis Objective Data Labs 04/08/23 02:16 04/08/23 10:06 Labs: Laboratory Results - last 24 hr 04/07/23 04/07/23 04/07/23 13:37 13:37 14:19 WBC RBC Hgb Hct MCV MCH MCHC RDW Plt Count MPV Immature Gran % (Auto) Neut % (Auto) Lymph % (Auto) [place] % (Auto) Eos % (Auto) Baso % (Auto) Lymph # (Auto) [place] # (Auto) Eos # (Auto) Baso # (Auto) Abs Immat Gran (auto) Absolute Neuts (auto) Absolute Nucleated RBC Nucleated RBC % (auto) ESR 49 H VBG pH VBG pCO2 VBG pO2 VBG HCO3 VBG O2 Saturation VBG Base Excess Sodium Potassium Chloride Carbon Dioxide Anion Gap BUN Creatinine Estim Creat Clear Calc Estimated GFR POC Glucose Random Glucose Calcium Phosphorus Magnesium C-Reactive Protein 11.82 H Albumin TSH 0.40 Respiratory Panel Euceda See Note Adenovirus (Rapid PCR) Not Detected B.pert (TEM-PCR) Not Detected B.parapertussis DNA PCR Not Detected C. pneumoniae DNA (PCR) Not Detected Coronavirus OC43 (PCR) Not Detected Coronavirus HKU1 (PCR) Not Detected Coronavirus 229E (PCR) Not Detected Coronavirus NL63 (PCR) Not Detected Human Metapneumovir PCR Not Detected Influenza A (RT-PCR) Not Detected Influenza B (RT-PCR) Not Detected M. pneumoniae (PCR) Not Detected Parainfluenza 1 (PCR) Not Detected Parainfluenza 2 (PCR) Not Detected Parainfluenza 3 (PCR) Not Detected Parainfluenza 4 (PCR) Not Detected RSV (PCR) Not Detected Entero/Rhino (PCR) Not Detected SARS-CoV-2 RNA (RT-PCR) Not Detected 04/07/23 04/07/23 04/07/23 17:08 17:12 17:36 WBC RBC Hgb Hct MCV MCH MCHC RDW Plt Count MPV Immature Gran % (Auto) Neut % (Auto) Lymph % (Auto) [place] % (Auto) Eos % (Auto) Baso % (Auto) Lymph # (Auto) [place] # (Auto) Eos # (Auto) Baso # (Auto) Abs Immat Gran (auto) Absolute Neuts (auto) Absolute Nucleated RBC Nucleated RBC % (auto) ESR VBG pH 7.56 H VBG pCO2 36 VBG pO2 44 VBG HCO3 33 H VBG O2 Saturation 71.0 VBG Base Excess 10.7 Sodium 140 Potassium 2.5 L* D Chloride 98 Carbon Dioxide 30 H Anion Gap 15 BUN 14 Creatinine 0.76 Estim Creat Clear Calc 82.7 Estimated GFR > 60 POC Glucose 190 H Random Glucose 185 H Calcium 9.9 Phosphorus Magnesium C-Reactive Protein Albumin TSH Respiratory Panel Euceda Adenovirus (Rapid PCR) B.pert (TEM-PCR) B.parapertussis DNA PCR C. pneumoniae DNA (PCR) Coronavirus OC43 (PCR) Coronavirus HKU1 (PCR) Coronavirus 229E (PCR) Coronavirus NL63 (PCR) Human Metapneumovir PCR Influenza A (RT-PCR) Influenza B (RT-PCR) M. pneumoniae (PCR) Parainfluenza 1 (PCR) Parainfluenza 2 (PCR) Parainfluenza 3 (PCR) Parainfluenza 4 (PCR) RSV (PCR) Entero/Rhino (PCR) SARS-CoV-2 RNA (RT-PCR) 04/07/23 04/08/23 04/08/23 23:28 02:16 02:16 WBC 13.0 H RBC 4.63 Hgb 12.6 Hct 41.8 MCV 90.3 D MCH 27.2 MCHC 30.1 L RDW 16.1 H Plt Count 316 MPV 9.5 Immature Gran % (Auto) 0.4 Neut % (Auto) 85.8 H Lymph % (Auto) 5.4 L [place] % (Auto) 8.0 Eos % (Auto) 0.2 Baso % (Auto) 0.2 Lymph # (Auto) 0.7 L [place] # (Auto) 1.0 Eos # (Auto) 0.0 Baso # (Auto) 0.0 Abs Immat Gran (auto) 0.05 H Absolute Neuts (auto) 11.2 H Absolute Nucleated RBC 0.000 Nucleated RBC % (auto) 0.0 ESR VBG pH VBG pCO2 VBG pO2 VBG HCO3 VBG O2 Saturation VBG Base Excess Sodium 137 Potassium 2.4 L* Chloride 100 Carbon Dioxide 26 Anion Gap 13 BUN 13 Creatinine 0.74 Estim Creat Clear Calc 84.9 Estimated GFR > 60 POC Glucose 211 H Random Glucose 211 H Calcium 9.7 Phosphorus 1.2 L Magnesium 2.0 C-Reactive Protein Albumin 3.1 L TSH Respiratory Panel Euceda Adenovirus (Rapid PCR) B.pert (TEM-PCR) B.parapertussis DNA PCR C. pneumoniae DNA (PCR) Coronavirus OC43 (PCR) Coronavirus HKU1 (PCR) Coronavirus 229E (PCR) Coronavirus NL63 (PCR) Human Metapneumovir PCR Influenza A (RT-PCR) Influenza B (RT-PCR) M. pneumoniae (PCR) Parainfluenza 1 (PCR) Parainfluenza 2 (PCR) Parainfluenza 3 (PCR) Parainfluenza 4 (PCR) RSV (PCR) Entero/Rhino (PCR) SARS-CoV-2 RNA (RT-PCR) 04/08/23 04/08/23 04/08/23 02:18 05:37 10:06 WBC RBC Hgb Hct MCV MCH MCHC RDW Plt Count MPV Immature Gran % (Auto) Neut % (Auto) Lymph % (Auto) [place] % (Auto) Eos % (Auto) Baso % (Auto) Lymph # (Auto) [place] # (Auto) Eos # (Auto) Baso # (Auto) Abs Immat Gran (auto) Absolute Neuts (auto) Absolute Nucleated RBC Nucleated RBC % (auto) ESR VBG pH 7.55 H VBG pCO2 37 VBG pO2 52 VBG HCO3 33 H VBG O2 Saturation 86.0 VBG Base Excess 10.5 Sodium 138 Potassium 3.5 D Chloride 106 Carbon Dioxide 25 Anion Gap 11 L BUN 12 Creatinine 0.71 Estim Creat Clear Calc 91.9 Estimated GFR > 60 POC Glucose 230 H Random Glucose 194 H Calcium 9.7 Phosphorus Magnesium C-Reactive Protein Albumin TSH Respiratory Panel Euceda Adenovirus (Rapid PCR) B.pert (TEM-PCR) B.parapertussis DNA PCR C. pneumoniae DNA (PCR) Coronavirus OC43 (PCR) Coronavirus HKU1 (PCR) Coronavirus 229E (PCR) Coronavirus NL63 (PCR) Human Metapneumovir PCR Influenza A (RT-PCR) Influenza B (RT-PCR) M. pneumoniae (PCR) Parainfluenza 1 (PCR) Parainfluenza 2 (PCR) Parainfluenza 3 (PCR) Parainfluenza 4 (PCR) RSV (PCR) Entero/Rhino (PCR) SARS-CoV-2 RNA (RT-PCR) 04/08/23 11:36 WBC RBC Hgb Hct MCV MCH MCHC RDW Plt Count MPV Immature Gran % (Auto) Neut % (Auto) Lymph % (Auto) [place] % (Auto) Eos % (Auto) Baso % (Auto) Lymph # (Auto) [place] # (Auto) Eos # (Auto) Baso # (Auto) Abs Immat Gran (auto) Absolute Neuts (auto) Absolute Nucleated RBC Nucleated RBC % (auto) ESR VBG pH VBG pCO2 VBG pO2 VBG HCO3 VBG O2 Saturation VBG Base Excess Sodium Potassium Chloride Carbon Dioxide Anion Gap BUN Creatinine Estim Creat Clear Calc Estimated GFR POC Glucose 180 H Random Glucose Calcium Phosphorus Magnesium C-Reactive Protein Albumin TSH Respiratory Panel Euceda Adenovirus (Rapid PCR) B.pert (TEM-PCR) B.parapertussis DNA PCR C. pneumoniae DNA (PCR) Coronavirus OC43 (PCR) Coronavirus HKU1 (PCR) Coronavirus 229E (PCR) Coronavirus NL63 (PCR) Human Metapneumovir PCR Influenza A (RT-PCR) Influenza B (RT-PCR) M. pneumoniae (PCR) Parainfluenza 1 (PCR) Parainfluenza 2 (PCR) Parainfluenza 3 (PCR) Parainfluenza 4 (PCR) RSV (PCR) Entero/Rhino (PCR) SARS-CoV-2 RNA (RT-PCR) Microbiology Microbiology Results: Microbiology 04/07/23 14:19 Sputum - Suctioned Gram Stain - Final 04/07/23 14:19 Sputum - Suctioned Sputum Culture - Preliminary Culture in progress. 04/06/23 15:01 Blood - Venous Blood Culture - Preliminary No growth after 24 hours. 04/06/23 14:22 Blood - Venous Blood Culture - Preliminary No growth after 24 hours. Progress Note: A&P Assessment and plan (1) Acute metabolic encephalopathy: Status: Acute (2) Hypernatremia: Status: Acute (3) Obesity with alveolar hypoventilation: Status: Acute (4) Syncope: Status: Acute (5) Fall: Status: Acute (6) Hypercapnic respiratory failure: Status: Acute (7) Pneumonia: Status: Acute (8) Hypoxemia: Status: Acute (9) Restrictive lung disease: Status: Acute (10) COPD (chronic obstructive pulmonary disease): Status: Acute (11) FRANKI (obstructive sleep apnea): Status: Acute (12) Obesity: Status: Acute Plan so the plan I think is to attempt a sedation holiday and if we can have some control of her behavior especially with her background history of psychosis then we might be able to initiate a pressure support weaning trial Quality Stroke Does the patient have a stroke diagnosis?: No VTE Prior VTE?: No VTE Risk Level:: Medical - moderate - high VTE Device Contraindication: N/A - Device Ordered VTE Drug Contraindication: N/A - Med Ordered
--- NOTE | 2023-04-08 13:14 | MHC.CM.PN ---
Pt continues on ventilatory support in ICU: Original d/c plan is for a return to home w/existing [facility] VNA and family support but this will be revisited once pt is extubated and can participate in formal assessments of functional ability.
[2023-04-08] MEDS: propofoL 1,000 MG/100 ML VIAL 27 MG IVCONT (13:31)
[2023-04-08] MEDS: propofoL 1,000 MG/100 ML VIAL 30 MG IVCONT ×3 (16:59→22:06)
[2023-04-08 17:24] LABS: Glucose, Whole Blood 174 mg/dL (60-115)
[2023-04-08 23:59] LABS: Glucose, Whole Blood 160 mg/dL (60-115)
[2023-04-09] VITALS (32 sets, daily range): BP systolic 104–186; BP diastolic 47–109; PULSE 44–94; RESP 19–27; TEMP 35.4–36.4; O2SAT 92–98; BMI 42.8
[2023-04-09] MEDS: propofoL 1,000 MG/100 ML VIAL 30 MG IVCONT ×3 (00:42→05:46)
[2023-04-09 00:48] LABS: Anion Gap 11 (12-20); Blood Urea Nitrogen 13 mg/dL (9-16); Calcium 9.3 mg/dL (8.4-10.2); Carbon Dioxide 23 mmol/L (22-29); Chloride 110 mmol/L (96-108); Estimated Glomerular Filt Rate > 60; Glucose Random 161 mg/dL (60-115); Phosphorus 2.6 mg/dL (2.7-4.5); Potassium 3.7 mmol/L (3.3-5.1); Sodium 140 mmol/L (135-145)
[2023-04-09] MEDS: methylPREDNISolone Sod Succ 40 MG/ML VIAL IVPUSH ×2 (02:11→13:25)
[2023-04-09] MEDS: Doxycycline Hyclate 100 MG in 0.9 % Sodium Chloride 250 ML 166.67 MG IV ×2 (02:13→13:25)
[2023-04-09] MEDS: KCl 40 mEq in 5% Dex/0.45% Sod 40 MEQ/1,000 ML IV.SOLN 80 MEQ IVCONT ×2 (03:13→14:29)
[2023-04-09] MEDS: Albuterol/Iprat 2.5/0.5MG 3 ML AMPUL.NEB INHALE ×4 (04:15→20:02)
[2023-04-09] MEDS: Heparin Sodium,Porcine 5,000 UNIT/ML VIAL 5000 UNIT SUBCUT ×3 (05:14→21:07)
[2023-04-09] MEDS: Levothyroxine Sodium 100 MCG/5 ML VIAL 50 MCG IVPUSH (05:15)
[2023-04-09 05:17] LABS: VBG Base Excess -0.2 mmol/L; VBG HCO3 22 mmol/L (22-26); VBG pCO2 31 mmHg; VBG pH 7.46 (7.32-7.43); VBG pO2 61 mmHg
[2023-04-09 05:22] LABS: MANUAL DIFF FLAG NO
[2023-04-09 05:27] LABS: Eosinophils Percent Auto 0.1 % (0-4); Hematocrit 40.1 % (37.0-47.0); Hemoglobin 12.4 g/dl (12.0-16.0); Imm Gran Abs Auto 0.05 X10*3/uL (0.00-0.03); Imm Gran Pct Auto 0.4 % (0.0-0.4); Lymphocytes Absolute Auto 0.5 X10*3/uL (1.2-4.9); Lymphocytes Percent Auto 4.3 % (20-40); Mean Corpuscular HGB Conc 30.9 g/dl (31.0-35.0); Mean Corpuscular Hemoglobin 27.6 pg (27.0-33.0); Mean Corpuscular Volume 89.1 fL (80.0-98.0); Mean Platelet Volume 9.2 fL (9.4-12.3); Monocytes Absolute Auto 0.7 X10*3/uL (0.1-1.2); Monocytes Percent Auto 5.5 % (2-11); Neutrophils Percent Auto 89.7 % (45-73); Platelet Count 289 X10*3/uL (160-400); Red Cell Distribution Width 17.1 % (11.0-16.0); White Blood Count 12.2 X10*3/uL (4.8-10.8)
[2023-04-09 05:28] LABS: Venous Blood Gas Refer to POC result
[2023-04-09] MEDS: Pantoprazole Sodium 40 MG/10 ML VIAL IVPUSH (05:46)
[2023-04-09 05:53] LABS: Albumin Level 2.8 g/dL (3.5-5.0); Anion Gap 13 (12-20); Blood Urea Nitrogen 13 mg/dL (9-16); Calcium 8.9 mg/dL (8.4-10.2); Carbon Dioxide 20 mmol/L (22-29); Chloride 112 mmol/L (96-108); Creatinine Clr Calc Pharmacy 100.4; Estimated Glomerular Filt Rate > 60; Glucose Random 146 mg/dL (60-115); Magnesium 1.9 mg/dL (1.6-2.6); Phosphorus 2.7 mg/dL (2.7-4.5); Potassium 3.8 mmol/L (3.3-5.1); Sodium 141 mmol/L (135-145)
[2023-04-09] MEDS: Midazolam HCl/PF 2 MG/2 ML VIAL IVPUSH ×9 (06:24→22:15)
--- NOTE | 2023-04-09 08:08 | P.PNCC_ITS ---
Subjective Subjective Date of Service: 04/09/23 Interval History: 62-year-old morbidly obese female who presented with acute hypoxemic respiratory failure along with acute hypercapnic respiratory failure found following a supposed did syncopal event face down on the floor with ecchymosis over the right orbit and because she was a highly agitated delirium had to be sedated and intubated clearly was in status asthmaticus and because we just made a presumptive diagnosis of asthmatic bronchitis she is being in a covered with antibiotics add although there was no distinct infiltrate or fever and given her low minute ventilatory requirements an and of course the weaning of her FiO2 lashay n to 40% we stop propofol she woke up somewhat agitated and required IV Versed to be calm and currently lethargic awake and over breathing the machine so she is on pressure support with a high inspiratory pressure which we hope to start weaning as she awakens and might use dexmedetomidine if heart rate allows for behavioral control and see if we can not wean the ventilator today Critical Care Time (minutes): 45 Physical Exam Vital Signs: Vital Signs: Last Vital Signs Temp 97.6 F 04/09/23 05:00 Pulse 66 04/09/23 07:18 Resp 20 04/09/23 07:18 BP 155/94 H 04/09/23 07:00 Pulse Ox 94 04/09/23 07:00 O2 Del Method Mechanical Ventil ation 04/09/23 07:00 O2 Flow Rate 50 04/07/23 09:00 FiO2 35 04/09/23 07:52 Oxygen Flow Rate 2 04/06/23 13:41 BMI result Body Mass Index 42.8 vital signs stable bedside echo defining good LV function currently too lethargic but there is seems to be some understanding with the credit consultant came in to speak Martiniquais so this some early amish of cognitive function abdomen is markedly obese but positive bowel sounds soft no organomegaly no peripheral edema no cellulitis no acrocyanosis Objective Data Labs 04/09/23 04:54 04/09/23 04:54 Labs: Laboratory Results - last 24 hr 04/07/23 04/08/23 04/08/23 14:19 10:06 11:36 WBC RBC Hgb Hct MCV MCH MCHC RDW Plt Count MPV Immature Gran % (Auto) Neut % (Auto) Lymph % (Auto) [place] % (Auto) Eos % (Auto) Baso % (Auto) Lymph # (Auto) [place] # (Auto) Eos # (Auto) Baso # (Auto) Abs Immat Gran (auto) Absolute Neuts (auto) Absolute Nucleated RBC Nucleated RBC % (auto) VBG pH VBG pCO2 VBG pO2 VBG HCO3 VBG O2 Saturation VBG Base Excess Sodium 138 Potassium 3.5 D Chloride 106 Carbon Dioxide 25 Anion Gap 11 L BUN 12 Creatinine 0.71 Estim Creat Clear Calc 91.9 Estimated GFR > 60 POC Glucose 180 H Random Glucose 194 H Calcium 9.7 Phosphorus Magnesium Albumin Respiratory Panel Euceda See Note Adenovirus (Rapid PCR) Not Detected B.pert (TEM-PCR) Not Detected B.parapertussis DNA PCR Not Detected C. pneumoniae DNA (PCR) Not Detected Coronavirus OC43 (PCR) Not Detected Coronavirus HKU1 (PCR) Not Detected Coronavirus 229E (PCR) Not Detected Coronavirus NL63 (PCR) Not Detected Human Metapneumovir PCR Not Detected Influenza A (RT-PCR) Not Detected Influenza B (RT-PCR) Not Detected M. pneumoniae (PCR) Not Detected Parainfluenza 1 (PCR) Not Detected Parainfluenza 2 (PCR) Not Detected Parainfluenza 3 (PCR) Not Detected Parainfluenza 4 (PCR) Not Detected RSV (PCR) Not Detected Entero/Rhino (PCR) Not Detected SARS-CoV-2 RNA (RT-PCR) Not Detected 04/08/23 04/08/23 04/09/23 17:08 23:56 00:17 WBC RBC Hgb Hct MCV MCH MCHC RDW Plt Count MPV Immature Gran % (Auto) Neut % (Auto) Lymph % (Auto) [place] % (Auto) Eos % (Auto) Baso % (Auto) Lymph # (Auto) [place] # (Auto) Eos # (Auto) Baso # (Auto) Abs Immat Gran (auto) Absolute Neuts (auto) Absolute Nucleated RBC Nucleated RBC % (auto) VBG pH VBG pCO2 VBG pO2 VBG HCO3 VBG O2 Saturation VBG Base Excess Sodium 140 Potassium 3.7 Chloride 110 H Carbon Dioxide 23 Anion Gap 11 L BUN 13 Creatinine 0.68 Estim Creat Clear Calc 96.0 Estimated GFR > 60 POC Glucose 174 H 160 H Random Glucose 161 H Calcium 9.3 Phosphorus 2.6 L Magnesium Albumin Respiratory Panel Euceda Adenovirus (Rapid PCR) B.pert (TEM-PCR) B.parapertussis DNA PCR C. pneumoniae DNA (PCR) Coronavirus OC43 (PCR) Coronavirus HKU1 (PCR) Coronavirus 229E (PCR) Coronavirus NL63 (PCR) Human Metapneumovir PCR Influenza A (RT-PCR) Influenza B (RT-PCR) M. pneumoniae (PCR) Parainfluenza 1 (PCR) Parainfluenza 2 (PCR) Parainfluenza 3 (PCR) Parainfluenza 4 (PCR) RSV (PCR) Entero/Rhino (PCR) SARS-CoV-2 RNA (RT-PCR) 04/09/23 04/09/23 04/09/23 04:54 04:54 05:10 WBC 12.2 H RBC 4.50 Hgb 12.4 Hct 40.1 MCV 89.1 MCH 27.6 MCHC 30.9 L RDW 17.1 H Plt Count 289 MPV 9.2 L Immature Gran % (Auto) 0.4 Neut % (Auto) 89.7 H Lymph % (Auto) 4.3 L [place] % (Auto) 5.5 Eos % (Auto) 0.1 Baso % (Auto) 0.0 Lymph # (Auto) 0.5 L [place] # (Auto) 0.7 Eos # (Auto) 0.0 Baso # (Auto) 0.0 Abs Immat Gran (auto) 0.05 H Absolute Neuts (auto) 11.0 H Absolute Nucleated RBC 0.000 Nucleated RBC % (auto) 0.0 VBG pH 7.46 H VBG pCO2 31 VBG pO2 61 VBG HCO3 22 VBG O2 Saturation 89.0 VBG Base Excess -0.2 Sodium 141 Potassium 3.8 Chloride 112 H Carbon Dioxide 20 L Anion Gap 13 BUN 13 Creatinine 0.65 Estim Creat Clear Calc 100.4 Estimated GFR > 60 POC Glucose Random Glucose 146 H Calcium 8.9 Phosphorus 2.7 Magnesium 1.9 Albumin 2.8 L Respiratory Panel Euceda Adenovirus (Rapid PCR) B.pert (TEM-PCR) B.parapertussis DNA PCR C. pneumoniae DNA (PCR) Coronavirus OC43 (PCR) Coronavirus HKU1 (PCR) Coronavirus 229E (PCR) Coronavirus NL63 (PCR) Human Metapneumovir PCR Influenza A (RT-PCR) Influenza B (RT-PCR) M. pneumoniae (PCR) Parainfluenza 1 (PCR) Parainfluenza 2 (PCR) Parainfluenza 3 (PCR) Parainfluenza 4 (PCR) RSV (PCR) Entero/Rhino (PCR) SARS-CoV-2 RNA (RT-PCR) Microbiology Microbiology Results: Microbiology 04/06/23 15:01 Blood - Venous Blood Culture - Preliminary No growth after 48 hours. 04/06/23 14:22 Blood - Venous Blood Culture - Preliminary No growth after 48 hours. 04/07/23 14:19 Sputum - Suctioned Gram Stain - Final 04/07/23 14:19 Sputum - Suctioned Sputum Culture - Preliminary Culture in progress. Progress Note: A&P Assessment and plan (1) Acute metabolic encephalopathy: Status: Acute (2) Hypernatremia: Status: Acute (3) Obesity with alveolar hypoventilation: Status: Acute (4) Syncope: Status: Acute (5) Fall: Status: Acute (6) Hypercapnic respiratory failure: Status: Acute (7) Pneumonia: Status: Acute (8) Hypoxemia: Status: Acute (9) Restrictive lung disease: Status: Acute (10) COPD (chronic obstructive pulmonary disease): Status: Acute (11) FRANKI (obstructive sleep apnea): Status: Acute (12) Obesity: Status: Acute Plan so the plan here is a attempting a pressure support weaning trial on the ventilator possibly utilizing dexmedetomidine to help control her behavior and if she demonstrates the reserve extubate today if not then clearly will place her back on assist control and then re-attempt again in the morning Quality Stroke Does the patient have a stroke diagnosis?: No VTE Prior VTE?: No VTE Risk Level:: Medical - moderate - high VTE Device Contraindication: N/A - Device Ordered VTE Drug Contraindication: N/A - Med Ordered
[2023-04-09] MEDS: dexmedeTOMIDidine HCL/NS 400 MCG/100 ML INFUS..BTL 12.5 MCG IVCONT (09:24)
[2023-04-09 11:09] LABS: Glucose, Whole Blood 139 mg/dL (60-115)
[2023-04-09] MEDS: LORazepam 2 MG/ML VIAL 0.5 MG IVPUSH ×4 (11:19→23:11)
[2023-04-09] MEDS: Albuterol Sulfate (0.083%) 2.5 MG/3 ML VIAL.NEB 10 MG INHALE (11:33)
[2023-04-09] MEDS: cefTRIAXone sodium 1 GM in 0.9 % Sodium Chloride 50 ML IV ×2 (11:47→23:11)
--- NOTE | 2023-04-09 11:56 | PC.NURSE ---
Addendum entered by Carolina Iverson RN 04/09/23 16:18: SBP BP continuing to maintain 180's - MD notified, no new orders at this time. Original Note: Sedation vacation initiated at 0610 - Propofol gtt discontinued. Patient alert to name, following commands. Switched to PSV at 0744 by RT. Patient becoming increasing restless/anxious - Versed IVP PRN administered per EMAR. Patient continued to be restless, trying to get OOB, reaching for ETT. Difficult to redirect. MD at bedside - patient switched back to AC settings per MD order at 1012- Precedex gtt started and titrated to max rate per EMAR. Ativan 0.5mg IVP ordered and administered. HR down to 38-39 x3 with quick recovery back to 40-50's, SBP maintaining 170's - Dr Joseph notified, no new orders at this time. Patient resting comfortably in bed w/ eyes closed, arousable to name. Restraints and tele sitter in place.
[2023-04-09] MEDS: dexmedeTOMIDidine HCL/NS 400 MCG/100 ML INFUS..BTL 37.5 MCG IVCONT ×5 (12:08→21:55)
--- NOTE | 2023-04-09 12:23 | MHC.CLN ---
F/U PT REMAINS INTUBATED AND SEDATED RECOMMEND PROMOTE AT MAX GOAL RATE 50ML/HR WITH 120ML FREE WATER FLUSHES Q 6 HRS TO PROVIDE 1200KCALS ( 23KCALS/KG BASED ON IBW), 75G PROTEIN (1.5G/KG), 1487ML TOTAL FREE WATER FROM FORMULA AND FLUSHES (30ML/HR) MONITOR TOLERANCE, RESIDUALS AND LYTES
[2023-04-09 17:10] LABS: Glucose, Whole Blood 193 mg/dL (60-115)
[2023-04-10] VITALS (35 sets, daily range): BP systolic 119–167; BP diastolic 71–96; PULSE 51–118; RESP 20–32; TEMP 34.3–37.7; O2SAT 91–97; BMI 44.4
[2023-04-10] MEDS: dexmedeTOMIDidine HCL/NS 400 MCG/100 ML INFUS..BTL 37.5 MCG IVCONT ×4 (00:03→06:26)
[2023-04-10] MEDS: Midazolam HCl/PF 2 MG/2 ML VIAL IVPUSH ×11 (00:04→23:18)
[2023-04-10 00:05] LABS: Glucose, Whole Blood 225 mg/dL (60-115)
[2023-04-10] MEDS: Albuterol/Iprat 2.5/0.5MG 3 ML AMPUL.NEB INHALE ×6 (00:22→20:03)
[2023-04-10] MEDS: Insulin Lispro 100 UNIT/ML 3 ML VIAL SUBCUT ×3 (00:42→11:22)
[2023-04-10] MEDS: methylPREDNISolone Sod Succ 40 MG/ML VIAL IVPUSH ×2 (02:17→13:06)
[2023-04-10] MEDS: Doxycycline Hyclate 100 MG in 0.9 % Sodium Chloride 250 ML 166.67 MG IV ×2 (02:17→13:07)
[2023-04-10] MEDS: Albumin Human 25 % 100 ML IV (02:38)
[2023-04-10] MEDS: LORazepam 2 MG/ML VIAL 0.5 MG IVPUSH ×5 (03:01→23:23)
[2023-04-10 05:00] LABS: VBG Base Excess -5.2 mmol/L; VBG HCO3 18 mmol/L (22-26); VBG pCO2 31 mmHg; VBG pH 7.37 (7.32-7.43); VBG pO2 52 mmHg
[2023-04-10] MEDS: Levothyroxine Sodium 100 MCG/5 ML VIAL 50 MCG IVPUSH (05:01)
[2023-04-10] MEDS: Heparin Sodium,Porcine 5,000 UNIT/ML VIAL 5000 UNIT SUBCUT ×3 (05:02→22:10)
[2023-04-10 05:08] LABS: Venous Blood Gas Refer to POC result
[2023-04-10] MEDS: HYDROmorphone HCl 1 MG/ML SYRINGE IVPUSH (05:18)
[2023-04-10 05:29] LABS: MANUAL DIFF FLAG NO
[2023-04-10 05:32] LABS: Basophils Percent Auto 0.1 % (0-2); Hematocrit 41.5 % (37.0-47.0); Hemoglobin 12.7 g/dl (12.0-16.0); Imm Gran Abs Auto 0.09 X10*3/uL (0.00-0.03); Imm Gran Pct Auto 0.6 % (0.0-0.4); Lymphocytes Absolute Auto 0.6 X10*3/uL (1.2-4.9); Lymphocytes Percent Auto 3.9 % (20-40); Mean Corpuscular HGB Conc 30.6 g/dl (31.0-35.0); Mean Corpuscular Hemoglobin 27.7 pg (27.0-33.0); Mean Corpuscular Volume 90.4 fL (80.0-98.0); Mean Platelet Volume 9.8 fL (9.4-12.3); Monocytes Percent Auto 6.8 % (2-11); Neutrophils Absolute Auto 12.9 x10*3/uL (2.0-8.3); Neutrophils Percent Auto 88.6 % (45-73); Platelet Count 303 X10*3/uL (160-400); Red Blood Count 4.59 X10*6/uL (4.20-5.50); Red Cell Distribution Width 17.1 % (11.0-16.0); White Blood Count 14.5 X10*3/uL (4.8-10.8)
[2023-04-10 05:52] LABS: Albumin Level 3.2 g/dL (3.5-5.0); Anion Gap 13 (12-20); Blood Urea Nitrogen 14 mg/dL (9-16); Calcium 9.8 mg/dL (8.4-10.2); Carbon Dioxide 19 mmol/L (22-29); Chloride 113 mmol/L (96-108); Creatinine Clr Calc Pharmacy 106.7; Estimated Glomerular Filt Rate > 60; Glucose Random 156 mg/dL (60-115); Magnesium 1.9 mg/dL (1.6-2.6); Phosphorus 2.8 mg/dL (2.7-4.5); Potassium 4.7 mmol/L (3.3-5.1); Sodium 140 mmol/L (135-145)
[2023-04-10] MEDS: Pantoprazole Sodium 40 MG/10 ML VIAL IVPUSH (06:13)
[2023-04-10] MEDS: Furosemide 20 MG/2 ML VIAL IVPUSH (07:11)
[2023-04-10] MEDS: Magnesium Sulfate/D5W 1 GM/100 ML PIGGYBACK IV (07:12)
[2023-04-10] MEDS: Chlorhexidine Gluc Oral Rinse 15 ML MOUTHWASH BUCCAL ×3 (07:13→22:11)
--- NOTE | 2023-04-10 07:35 | PC.NURSE ---
Plan for sedation vacation at 1100 per MD - Continue Precedex gtt at this time per MD.
--- NOTE | 2023-04-10 08:51 | PM.CCPN ---
Subjective Subjective Date of Service: 04/10/23 Interval History: 62-year-old morbidly obese female with longstanding COPD obstructive sleep apnea and restrictive lung disease been here a number of times currently intubated and bedside echo today indicates mild to moderate diffuse hypokinesis of the left ventricle 35 to for the to 40% ejection fraction but no primary valve or pericardial disease and minute ventilatory requirements small in FiO2 is down to about 35% and in confirming the myopathy and seeing that her intake and output ratios very positive we initiated a diuresis and S started for hypertension losartan in the hopes of offsetting some of the diastolic dysfunction Then placed on pressure support weaning trial and had very poor volumes at 10/5 so she is on 15/5 volumes at best are in the mid to high 200s still insufficient for her size most especially end-tidal CO2 is climbing and her respiratory rates her in the very high 20s at this point not at all distressed if anything somewhat sleeping in looks very comfortable but we need to see consistent tidal volumes that are at least consistently exceeding 300 cc and that is at a eventual weaned pressure support of 10/5 so the Slee she may not qualify today Critical Care Time (minutes): 45 Physical Exam Vital Signs: Vital Signs: Last Vital Signs Temp 99.0 F 04/10/23 08:00 Pulse 56 04/10/23 08:00 Resp 20 04/10/23 08:00 BP 145/80 H 04/10/23 08:00 Pulse Ox 94 04/10/23 08:00 O2 Del Method Mechanical Ventil ation 04/10/23 08:00 O2 Flow Rate 50 04/07/23 09:00 FiO2 30 04/10/23 08:00 Oxygen Flow Rate 2 04/06/23 13:41 BMI result Body Mass Index 44.4 No respiratory distress she is off the dexmedetomidine and post diuresis blood pressure 135/86 and that is on losartan sinus tach at a rate of 102 oxygen saturation 92% but tidal volumes on pressure support of 15/5 her only in the mid 200s give her or take Neurologically intact Abdomen is obese but nontender no organomegaly As opposed to yesterday and no adventitious sounds no accessory muscle or diaphragmatic effort Objective Data Labs 04/10/23 04:41 04/10/23 04:41 Labs: Laboratory Results - last 24 hr 04/09/23 04/09/23 04/09/23 11:04 16:59 23:58 WBC RBC Hgb Hct MCV MCH MCHC RDW Plt Count MPV Immature Gran % (Auto) Neut % (Auto) Lymph % (Auto) [place] % (Auto) Eos % (Auto) Baso % (Auto) Lymph # (Auto) [place] # (Auto) Eos # (Auto) Baso # (Auto) Abs Immat Gran (auto) Absolute Neuts (auto) Absolute Nucleated RBC Nucleated RBC % (auto) VBG pH VBG pCO2 VBG pO2 VBG HCO3 VBG O2 Saturation VBG Base Excess Sodium Potassium Chloride Carbon Dioxide Anion Gap BUN Creatinine Estim Creat Clear Calc Estimated GFR POC Glucose 139 H 193 H 225 H Random Glucose Calcium Phosphorus Magnesium Albumin 04/10/23 04/10/23 04/10/23 04:41 04:41 04:50 WBC 14.5 H RBC 4.59 Hgb 12.7 Hct 41.5 MCV 90.4 MCH 27.7 MCHC 30.6 L RDW 17.1 H Plt Count 303 MPV 9.8 Immature Gran % (Auto) 0.6 H Neut % (Auto) 88.6 H Lymph % (Auto) 3.9 L [place] % (Auto) 6.8 Eos % (Auto) 0.0 Baso % (Auto) 0.1 Lymph # (Auto) 0.6 L [place] # (Auto) 1.0 Eos # (Auto) 0.0 Baso # (Auto) 0.0 Abs Immat Gran (auto) 0.09 H Absolute Neuts (auto) 12.9 H Absolute Nucleated RBC 0.000 Nucleated RBC % (auto) 0.0 VBG pH 7.37 VBG pCO2 31 VBG pO2 52 VBG HCO3 18 L VBG O2 Saturation 77.0 VBG Base Excess -5.2 Sodium 140 Potassium 4.7 D Chloride 113 H Carbon Dioxide 19 L Anion Gap 13 BUN 14 Creatinine 0.61 Estim Creat Clear Calc 106.7 Estimated GFR > 60 POC Glucose Random Glucose 156 H Calcium 9.8 D Phosphorus 2.8 Magnesium 1.9 Albumin 3.2 L Microbiology Microbiology Results: Microbiology 04/09/23 09:11 Sputum - Suctioned Gram Stain - Final 04/07/23 14:19 Sputum - Suctioned Gram Stain - Final 04/07/23 14:19 Sputum - Suctioned Sputum Culture - Final 04/06/23 15:01 Blood - Venous Blood Culture - Preliminary No growth after 48 hours. 04/06/23 14:22 Blood - Venous Blood Culture - Preliminary No growth after 48 hours. Progress Note: A&P Assessment and plan (1) Acute metabolic encephalopathy: Status: Acute (2) Hypernatremia: Status: Acute (3) Obesity with alveolar hypoventilation: Status: Acute (4) Syncope: Status: Acute (5) Fall: Status: Acute (6) Hypercapnic respiratory failure: Status: Acute (7) Pneumonia: Status: Acute (8) Hypoxemia: Status: Acute (9) Restrictive lung disease: Status: Acute (10) COPD (chronic obstructive pulmonary disease): Status: Acute (11) FRANKI (obstructive sleep apnea): Status: Acute (12) Obesity: Status: Acute Plan Plan in if she fails by 16:00 to wean down to 10/5 a 300 cc tidal volume we will again restaurant dexmedetomidine overnight and attempt again to wean in the morning Quality Stroke Does the patient have a stroke diagnosis?: No VTE Prior VTE?: No VTE Risk Level:: Medical - moderate - high VTE Device Contraindication: N/A - Device Ordered VTE Drug Contraindication: N/A - Med Ordered
[2023-04-10] MEDS: Losartan Potassium 25 MG TABLET PO (08:52)
[2023-04-10] MEDS: dexmedeTOMIDidine HCL/NS 400 MCG/100 ML INFUS..BTL 41.33 MCG IVCONT ×5 (09:10→22:18)
[2023-04-10] MEDS: cefTRIAXone sodium 1 GM in 0.9 % Sodium Chloride 50 ML IV ×2 (10:41→22:40)
[2023-04-10 11:34] LABS: Glucose, Whole Blood 165 mg/dL (60-115)
[2023-04-10 17:30] LABS: Glucose, Whole Blood 148 mg/dL (60-115)
[2023-04-10 21:13] LABS: Lyme Abs Screen <0.90 index
[2023-04-11] VITALS (39 sets, daily range): BP systolic 90–162; BP diastolic 39–92; PULSE 51–147; RESP 12–32; TEMP 34.8–38; O2SAT 61–97; BMI 44.1
[2023-04-11 00:02] LABS: Glucose, Whole Blood 167 mg/dL (60-115)
[2023-04-11] MEDS: Insulin Lispro 100 UNIT/ML 3 ML VIAL SUBCUT ×4 (00:07→23:58)
[2023-04-11] MEDS: dexmedeTOMIDidine HCL/NS 400 MCG/100 ML INFUS..BTL 41.33 MCG IVCONT ×4 (00:15→07:28)
[2023-04-11] MEDS: Albuterol/Iprat 2.5/0.5MG 3 ML AMPUL.NEB INHALE ×7 (00:48→23:22)
[2023-04-11] MEDS: Midazolam HCl/PF 2 MG/2 ML VIAL IVPUSH ×5 (01:17→20:57)
[2023-04-11] MEDS: methylPREDNISolone Sod Succ 40 MG/ML VIAL IVPUSH ×2 (02:24→14:24)
[2023-04-11] MEDS: Doxycycline Hyclate 100 MG in 0.9 % Sodium Chloride 250 ML 166.67 MG IV ×2 (02:24→14:26)
--- NOTE | 2023-04-11 02:48 | PC.NURSE ---
Assumed care at 19:00. Patient remains on Precedex gtt at 1.5, scheduled IVP ativan. Patient pulls on restraints, restless, kicking legs. Patient somewhat redirectable in Bulgarian, PRN versed for agitation around nursing maneuvers and oral care. Patient with AC settings on ventilator. High peak pressures 35-40. Suctioned for minimal creamy inline secretions with some pink tinged secretions.
[2023-04-11] MEDS: LORazepam 2 MG/ML VIAL 0.5 MG IVPUSH ×2 (03:30→06:28)
[2023-04-11 05:12] LABS: MANUAL DIFF FLAG NO
[2023-04-11 05:14] LABS: VBG Base Excess -1.9 mmol/L; VBG HCO3 20 mmol/L (22-26); VBG pCO2 28 mmHg; VBG pH 7.46 (7.32-7.43); VBG pO2 44 mmHg
[2023-04-11 05:16] LABS: Basophils Percent Auto 0.1 % (0-2); Hematocrit 43.5 % (37.0-47.0); Hemoglobin 13.6 g/dl (12.0-16.0); Imm Gran Abs Auto 0.07 X10*3/uL (0.00-0.03); Imm Gran Pct Auto 0.5 % (0.0-0.4); Lymphocytes Percent Auto 6.6 % (20-40); Mean Corpuscular HGB Conc 31.3 g/dl (31.0-35.0); Mean Corpuscular Hemoglobin 27.3 pg (27.0-33.0); Mean Corpuscular Volume 87.3 fL (80.0-98.0); Mean Platelet Volume 9.2 fL (9.4-12.3); Monocytes Absolute Auto 0.8 X10*3/uL (0.1-1.2); Monocytes Percent Auto 5.6 % (2-11); Neutrophils Absolute Auto 12.8 x10*3/uL (2.0-8.3); Neutrophils Percent Auto 87.2 % (45-73); Platelet Count 275 X10*3/uL (160-400); Red Blood Count 4.98 X10*6/uL (4.20-5.50); Red Cell Distribution Width 16.9 % (11.0-16.0); White Blood Count 14.6 X10*3/uL (4.8-10.8)
[2023-04-11] MEDS: Levothyroxine Sodium 100 MCG/5 ML VIAL 50 MCG IVPUSH (05:17)
[2023-04-11] MEDS: Heparin Sodium,Porcine 5,000 UNIT/ML VIAL 5000 UNIT SUBCUT ×3 (05:17→20:45)
[2023-04-11 05:51] LABS: Anion Gap 12 (12-20); Blood Urea Nitrogen 17 mg/dL (9-16); Calcium 9.5 mg/dL (8.4-10.2); Carbon Dioxide 21 mmol/L (22-29); Chloride 108 mmol/L (96-108); Creatinine Clr Calc Pharmacy 105.1; Estimated Glomerular Filt Rate > 60; Glucose Random 185 mg/dL (60-115); Magnesium 1.9 mg/dL (1.6-2.6); Phosphorus 3.2 mg/dL (2.7-4.5); Potassium 4.2 mmol/L (3.3-5.1); Sodium 137 mmol/L (135-145)
[2023-04-11 06:04] LABS: Glucose, Whole Blood 189 mg/dL (60-115)
[2023-04-11] MEDS: Furosemide 20 MG/2 ML VIAL IVPUSH (06:29)
[2023-04-11 06:43] LABS: Venous Blood Gas Refer to POC result
[2023-04-11] MEDS: acetaZOLAMIDE sodium 500 MG VIAL 250 MG IVPUSH (07:53)
--- NOTE | 2023-04-11 09:12 | MHC.CLN ---
F/U PT REMAINS INTUBATED AND SEDATED REVIEWED LABS PT RECEIVING PROMOTE AT MAX GOAL RATE 50ML/HR WITH 120ML FREE WATER FLUSHES Q 6 HRS TO PROVIDE 1200KCALS ( 23KCALS/KG BASED ON IBW), 75G PROTEIN (1.5G/KG), 1487ML TOTAL FREE WATER FROM FORMULA AND FLUSHES (30ML/HR) CONTINUE TO MONITOR TOLERANCE, RESIDUALS AND LYTES
[2023-04-11] MEDS: Chlorhexidine Gluc Oral Rinse 15 ML MOUTHWASH BUCCAL ×3 (10:24→20:45)
[2023-04-11] MEDS: Albumin Human 25 % 100 ML IV ×2 (11:33→12:45)
[2023-04-11] MEDS: cefTRIAXone sodium 1 GM in 0.9 % Sodium Chloride 50 ML IV ×2 (11:34→23:27)
[2023-04-11 11:58] LABS: Glucose, Whole Blood 120 mg/dL (60-115)
--- NOTE | 2023-04-11 14:32 | PC.RT ---
Pt noted to have vt < 200ml on 16 of psv. Psv returned to 18 by RT with little change. Pt switched to a/c and unable to synch with vent blocking all breaths. Pt then changed to PCV, ayad well at this time. Dr. Joseph aware, RN aware.
--- NOTE | 2023-04-11 15:31 | MHC.CM.PN ---
EMR REVIEWED. PT REMAINS IN ICU ON VENTILATORY SUPPORT, ATTEMPTS TO WEAN HAVE BEGUN. CM WILL CONTINUE TO FOLLOW HOSPITAL COURSE FOR DC NEEDS/PLAN.
--- NOTE | 2023-04-11 17:08 | PM.CCPN ---
Subjective Subjective Date of Service: 04/11/23 Interval History: 62-year-old morbidly obese female with longstanding history of COPD and asthma presented encephalopathic with delirium and acute hypoxemic and hypercarbic respiratory failure requiring intubation and she is in in yet another trial and doing very well tolerating but we still have insufficient tidal volumes for her size and weight at this point so were going to recent date and rest her and try again in the morning but lung parenchyma remains clear by exam and by x-ray does no longer diaphragmatic effort no neck vein distension no active wheezing so there is no further status epilepsy status asthmaticus and the antibiotics or PICC or purely empiric sputum has been negative but has done underlying congestive cardiomyopathy with reduced systolic and diastolic reserve and for that we added an SGLT 2 inhibitor as well as spironolactone and ARB and working on that aspect to make her euvolemic to expedite her weaning Critical Care Time (minutes): 45 Physical Exam Vital Signs: Vital Signs: Last Vital Signs Temp 99.9 F 04/11/23 16:00 Pulse 83 04/11/23 16:00 Resp 18 04/11/23 16:00 BP 105/39 L 04/11/23 16:00 Pulse Ox 89 L 04/11/23 16:00 O2 Del Method Mechanical Ventil ation 04/11/23 16:00 O2 Flow Rate 50 04/07/23 09:00 FiO2 28 04/11/23 16:00 Oxygen Flow Rate 2 04/06/23 13:41 BMI result Body Mass Index 44.1 Excellent vital signs doing well she hits has cognitive function but there are times when she gets agitated but in no she seems to be cooperative today but nonetheless failed the weaning PSV trial Bedside echo with consistent 40% ejection fraction CVP still alternates in a between a low of about 12 in sees me a low of 8 and a high of 12 Abdomen is benign no organomegaly Objective Data Labs 04/11/23 05:04 04/11/23 05:04 Labs: Laboratory Results - last 24 hr 04/08/23 04/10/23 04/10/23 06:37 17:09 23:49 WBC RBC Hgb Hct MCV MCH MCHC RDW Plt Count MPV Immature Gran % (Auto) Neut % (Auto) Lymph % (Auto) [place] % (Auto) Eos % (Auto) Baso % (Auto) Lymph # (Auto) [place] # (Auto) Eos # (Auto) Baso # (Auto) Abs Immat Gran (auto) Absolute Neuts (auto) Absolute Nucleated RBC Nucleated RBC % (auto) VBG pH VBG pCO2 VBG pO2 VBG HCO3 VBG O2 Saturation VBG Base Excess Sodium Potassium Chloride Carbon Dioxide Anion Gap BUN Creatinine Estim Creat Clear Calc Estimated GFR POC Glucose 148 H 167 H Random Glucose Calcium Phosphorus Magnesium Albumin Lyme Screen IgG & IgM <0.90 Lyme Progressive Test TNP 04/11/23 04/11/23 04/11/23 05:04 05:04 05:04 WBC 14.6 H RBC 4.98 Hgb 13.6 Hct 43.5 MCV 87.3 MCH 27.3 MCHC 31.3 RDW 16.9 H Plt Count 275 MPV 9.2 L Immature Gran % (Auto) 0.5 H Neut % (Auto) 87.2 H Lymph % (Auto) 6.6 L [place] % (Auto) 5.6 Eos % (Auto) 0.0 Baso % (Auto) 0.1 Lymph # (Auto) 1.0 L [place] # (Auto) 0.8 Eos # (Auto) 0.0 Baso # (Auto) 0.0 Abs Immat Gran (auto) 0.07 H Absolute Neuts (auto) 12.8 H Absolute Nucleated RBC 0.000 Nucleated RBC % (auto) 0.0 VBG pH 7.46 H VBG pCO2 28 VBG pO2 44 VBG HCO3 20 L VBG O2 Saturation 71.0 VBG Base Excess -1.9 Sodium 137 Potassium 4.2 Chloride 108 Carbon Dioxide 21 L Anion Gap 12 BUN 17 H Creatinine 0.63 Estim Creat Clear Calc 105.1 Estimated GFR > 60 POC Glucose Random Glucose 185 H Calcium 9.5 Phosphorus 3.2 Magnesium 1.9 Albumin 3.0 L Lyme Screen IgG & IgM Lyme Progressive Test 04/11/23 04/11/23 06:00 11:49 WBC RBC Hgb Hct MCV MCH MCHC RDW Plt Count MPV Immature Gran % (Auto) Neut % (Auto) Lymph % (Auto) [place] % (Auto) Eos % (Auto) Baso % (Auto) Lymph # (Auto) [place] # (Auto) Eos # (Auto) Baso # (Auto) Abs Immat Gran (auto) Absolute Neuts (auto) Absolute Nucleated RBC Nucleated RBC % (auto) VBG pH VBG pCO2 VBG pO2 VBG HCO3 VBG O2 Saturation VBG Base Excess Sodium Potassium Chloride Carbon Dioxide Anion Gap BUN Creatinine Estim Creat Clear Calc Estimated GFR POC Glucose 189 H 120 H Random Glucose Calcium Phosphorus Magnesium Albumin Lyme Screen IgG & IgM Lyme Progressive Test Microbiology Microbiology Results: Microbiology 04/06/23 15:01 Blood - Venous Blood Culture - Final No growth after 5 days. 04/06/23 14:22 Blood - Venous Blood Culture - Final No growth after 5 days. 04/09/23 09:11 Sputum - Suctioned Gram Stain - Final 04/09/23 09:11 Sputum - Suctioned Sputum Culture - Final 04/07/23 14:19 Sputum - Suctioned Gram Stain - Final 04/07/23 14:19 Sputum - Suctioned Sputum Culture - Final Progress Note: A&P Assessment and plan (1) Acute metabolic encephalopathy: Status: Acute (2) Hypernatremia: Status: Acute (3) Obesity with alveolar hypoventilation: Status: Acute (4) Syncope: Status: Acute (5) Fall: Status: Acute (6) Hypercapnic respiratory failure: Status: Acute (7) Pneumonia: Status: Acute (8) Hypoxemia: Status: Acute (9) Restrictive lung disease: Status: Acute (10) COPD (chronic obstructive pulmonary disease): Status: Acute (11) FRANKI (obstructive sleep apnea): Status: Acute (12) Obesity: Status: Acute Plan So for now we will Scott sedate and rest her initially back on assist control and re-attempt in the morning but the dexmedetomidine is doing a much more comfortable job of of controlling behavior and allowing episcopal of cognitive function Quality Stroke Does the patient have a stroke diagnosis?: No VTE Prior VTE?: No VTE Risk Level:: Medical - moderate - high VTE Device Contraindication: N/A - Device Ordered VTE Drug Contraindication: N/A - Med Ordered
[2023-04-11] MEDS: dexmedeTOMIDidine HCL/NS 400 MCG/100 ML INFUS..BTL 11.02 MCG IVCONT (17:20)
[2023-04-11] MEDS: dilTIAZem HCL 125 MG in 0.9 % Sodium Chloride 100 ML 10 MG IVCONT (17:34)
[2023-04-11 17:49] LABS: Glucose, Whole Blood 178 mg/dL (60-115)
[2023-04-11] MEDS: fentaNYL citrate/PF 100 MCG/2 ML VIAL 50 MCG IVPUSH (19:37)
[2023-04-11] MEDS: QUEtiapine Fumarate 25 MG TABLET PO (20:45)
[2023-04-11] MEDS: fentaNYL citrate/PF 100 MCG/2 ML VIAL IVPUSH (21:31)
[2023-04-11 23:53] LABS: Glucose, Whole Blood 176 mg/dL (60-115)
[2023-04-11] MEDS: dexmedeTOMIDidine HCL/NS 400 MCG/100 ML INFUS..BTL 13.78 MCG IVCONT (23:57)
[2023-04-12] VITALS (34 sets, daily range): BP systolic 90–146; BP diastolic 51–81; PULSE 56–128; RESP 15–45; TEMP 34.8–37.6; O2SAT 90–97; BMI 43.0
[2023-04-12] MEDS: fentaNYL citrate/PF 100 MCG/2 ML VIAL IVPUSH ×2 (01:12→03:00)
[2023-04-12] MEDS: Doxycycline Hyclate 100 MG in 0.9 % Sodium Chloride 250 ML 166.67 MG IV ×2 (01:39→14:53)
[2023-04-12] MEDS: methylPREDNISolone Sod Succ 40 MG/ML VIAL IVPUSH ×2 (01:41→14:52)
[2023-04-12] MEDS: Albuterol/Iprat 2.5/0.5MG 3 ML AMPUL.NEB INHALE ×6 (03:03→23:11)
[2023-04-12] MEDS: Midazolam HCl/PF 2 MG/2 ML VIAL IVPUSH ×8 (04:41→23:02)
[2023-04-12] MEDS: Levothyroxine Sodium 100 MCG/5 ML VIAL 50 MCG IVPUSH (05:31)
[2023-04-12] MEDS: Heparin Sodium,Porcine 5,000 UNIT/ML VIAL 5000 UNIT SUBCUT ×3 (05:32→22:00)
[2023-04-12 05:36] LABS: VBG Base Excess -1.8 mmol/L; VBG HCO3 21 mmol/L (22-26); VBG pCO2 31 mmHg; VBG pH 7.44 (7.32-7.43); VBG pO2 51 mmHg
[2023-04-12 05:41] LABS: Venous Blood Gas Refer to POC result
[2023-04-12 05:52] LABS: Basophils Percent Auto 0.1 % (0-2); Hematocrit 41.3 % (37.0-47.0); Hemoglobin 12.7 g/dl (12.0-16.0); Imm Gran Pct Auto 0.7 % (0.0-0.4); Lymphocytes Absolute Auto 0.6 X10*3/uL (1.2-4.9); Lymphocytes Percent Auto 4.1 % (20-40); MANUAL DIFF FLAG SCAN; Mean Corpuscular HGB Conc 30.8 g/dl (31.0-35.0); Mean Corpuscular Hemoglobin 27.6 pg (27.0-33.0); Mean Corpuscular Volume 89.8 fL (80.0-98.0); Monocytes Absolute Auto 0.5 X10*3/uL (0.1-1.2); Monocytes Percent Auto 3.6 % (2-11); Neutrophils Absolute Auto 13.1 x10*3/uL (2.0-8.3); Neutrophils Percent Auto 91.5 % (45-73); Platelet Count 273 X10*3/uL (160-400); Red Cell Distribution Width 16.7 % (11.0-16.0); SCAN SMEAR FLAG 1; White Blood Count 14.3 X10*3/uL (4.8-10.8)
[2023-04-12 06:01] LABS: SLIDE REVIEW VERIFIED
[2023-04-12 06:04] LABS: Albumin Level 3.4 g/dL (3.5-5.0); Anion Gap 12 (12-20); Blood Urea Nitrogen 21 mg/dL (9-16); Calcium 9.8 mg/dL (8.4-10.2); Carbon Dioxide 22 mmol/L (22-29); Chloride 110 mmol/L (96-108); Creatinine Clr Calc Pharmacy 106.9; Estimated Glomerular Filt Rate > 60; Glucose Random 165 mg/dL (60-115); Magnesium 2.1 mg/dL (1.6-2.6); Phosphorus 3.4 mg/dL (2.7-4.5); Potassium 4.1 mmol/L (3.3-5.1); Sodium 140 mmol/L (135-145)
[2023-04-12 06:05] LABS: Glucose, Whole Blood 184 mg/dL (60-115)
[2023-04-12] MEDS: dexmedeTOMIDidine HCL/NS 400 MCG/100 ML INFUS..BTL 13.78 MCG IVCONT ×2 (06:06→18:52)
[2023-04-12] MEDS: Insulin Lispro 100 UNIT/ML 3 ML VIAL SUBCUT ×2 (06:07→18:19)
--- NOTE | 2023-04-12 08:42 | PC.RT ---
PSV attempted x 2. Pt repeated apneas noted. MD/ RN aware.
[2023-04-12] MEDS: Chlorhexidine Gluc Oral Rinse 15 ML MOUTHWASH BUCCAL ×3 (09:34→20:34)
[2023-04-12 12:09] LABS: Glucose, Whole Blood 141 mg/dL (60-115)
[2023-04-12] MEDS: cefTRIAXone sodium 1 GM in 0.9 % Sodium Chloride 50 ML IV ×2 (12:18→23:02)
--- NOTE | 2023-04-12 15:54 | P.PNCC_ITS ---
Subjective Subjective Date of Service: 04/12/23 Interval History: [age]-year-old morbidly obese female with COPD and asthma initially presenting with of course marked respiratory effort with diaphragmatic effort but delirium requiring intubation and this is now at least her 3rd day in a row of PSV trial and today is her longest and best tolerance but started to flag after several hours so we are going to rest a 1 more time but there is no sign of infection sputum samples of all been negative thus far no infiltrate on chest x-ray she no longer has active wheezing and she has got her best cognitive function and cooperation today so if we have to recent date and it seems we do dexmed etomidine hopefully will be are sole agent and if terribly agitated at night small dose of p.r.n. Versed so that we could awaken her as easily as possible in the morning Critical Care Time (minutes): 45 Physical Exam Vital Signs: Vital Signs: Last Vital Signs Temp 99.5 F 04/12/23 15:00 Pulse 63 04/12/23 15:23 Resp 20 04/12/23 15:23 BP 123/62 04/12/23 15:00 Pulse Ox 96 04/12/23 15:00 O2 Del Method Mechanical Ventil ation 04/12/23 15:00 O2 Flow Rate 50 04/07/23 09:00 FiO2 28 04/12/23 15:23 Oxygen Flow Rate 2 04/06/23 13:41 BMI result Body Mass Index 43.0 And good could cognitive function orientation nonfocal neurologically improving Nito strength No diaphragmatic effort no accessory muscle use CVP is 8-10 Bedside echo still preserve 40% ejection fraction Abdomen is benign and no peripheral edema Objective Data Labs 04/12/23 05:30 04/12/23 05:30 Labs: Laboratory Results - last 24 hr 04/11/23 04/11/23 04/12/23 17:38 23:50 05:27 WBC RBC Hgb Hct MCV MCH MCHC RDW Plt Count MPV Immature Gran % (Auto) Neut % (Auto) Lymph % (Auto) [place] % (Auto) Eos % (Auto) Baso % (Auto) Lymph # (Auto) [place] # (Auto) Eos # (Auto) Baso # (Auto) Abs Immat Gran (auto) Absolute Neuts (auto) Absolute Nucleated RBC Nucleated RBC % (auto) Smear Tech's Comments VBG pH 7.44 H VBG pCO2 31 VBG pO2 51 VBG HCO3 21 L VBG O2 Saturation 79.0 VBG Base Excess -1.8 Sodium Potassium Chloride Carbon Dioxide Anion Gap BUN Creatinine Estim Creat Clear Calc Estimated GFR POC Glucose 178 H 176 H Random Glucose Calcium Phosphorus Magnesium Albumin 04/12/23 04/12/23 04/12/23 05:30 05:30 05:58 WBC 14.3 H RBC 4.60 Hgb 12.7 Hct 41.3 MCV 89.8 MCH 27.6 MCHC 30.8 L RDW 16.7 H Plt Count 273 MPV 10.0 Immature Gran % (Auto) 0.7 H Neut % (Auto) 91.5 H Lymph % (Auto) 4.1 L [place] % (Auto) 3.6 Eos % (Auto) 0.0 Baso % (Auto) 0.1 Lymph # (Auto) 0.6 L [place] # (Auto) 0.5 Eos # (Auto) 0.0 Baso # (Auto) 0.0 Abs Immat Gran (auto) 0.10 H Absolute Neuts (auto) 13.1 H Absolute Nucleated RBC 0.000 Nucleated RBC % (auto) 0.0 Smear Tech's Comments VERIFIED VBG pH VBG pCO2 VBG pO2 VBG HCO3 VBG O2 Saturation VBG Base Excess Sodium 140 Potassium 4.1 Chloride 110 H Carbon Dioxide 22 Anion Gap 12 BUN 21 H Creatinine 0.61 Estim Creat Clear Calc 106.9 Estimated GFR > 60 POC Glucose 184 H Random Glucose 165 H Calcium 9.8 Phosphorus 3.4 Magnesium 2.1 Albumin 3.4 L 04/12/23 12:05 WBC RBC Hgb Hct MCV MCH MCHC RDW Plt Count MPV Immature Gran % (Auto) Neut % (Auto) Lymph % (Auto) [place] % (Auto) Eos % (Auto) Baso % (Auto) Lymph # (Auto) [place] # (Auto) Eos # (Auto) Baso # (Auto) Abs Immat Gran (auto) Absolute Neuts (auto) Absolute Nucleated RBC Nucleated RBC % (auto) Smear Tech's Comments VBG pH VBG pCO2 VBG pO2 VBG HCO3 VBG O2 Saturation VBG Base Excess Sodium Potassium Chloride Carbon Dioxide Anion Gap BUN Creatinine Estim Creat Clear Calc Estimated GFR POC Glucose 141 H Random Glucose Calcium Phosphorus Magnesium Albumin Microbiology Microbiology Results: Microbiology 04/06/23 15:01 Blood - Venous Blood Culture - Final No growth after 5 days. 04/06/23 14:22 Blood - Venous Blood Culture - Final No growth after 5 days. 04/09/23 09:11 Sputum - Suctioned Gram Stain - Final 04/09/23 09:11 Sputum - Suctioned Sputum Culture - Final 04/07/23 14:19 Sputum - Suctioned Gram Stain - Final 04/07/23 14:19 Sputum - Suctioned Sputum Culture - Final Progress Note: A&P Assessment and plan (1) Acute metabolic encephalopathy: Status: Acute (2) Hypernatremia: Status: Acute (3) Obesity with alveolar hypoventilation: Status: Acute (4) Syncope: Status: Acute (5) Fall: Status: Acute (6) Hypercapnic respiratory failure: Status: Acute (7) Pneumonia: Status: Acute (8) Hypoxemia: Status: Acute (9) Restrictive lung disease: Status: Acute (10) COPD (chronic obstructive pulmonary disease): Status: Acute (11) FRANKI (obstructive sleep apnea): Status: Acute (12) Obesity: Status: Acute Plan So we will Scott sedated again with dexmedetomidine and rest her on assist control 1 more time and hopefully next morning will be a Charm and then will as sess for the no a thing for stopping all antibiotics and going to start tomorrow if successfully extubated the weaning process by switching to prednisone from the more aggressive Solu-Medrol and if extubated tomorrow will get a swallow study and hopefully initiated diet but thus far since we started quetiapine it seems that is probably added to her cognitive improvement Quality Stroke Does the patient have a stroke diagnosis?: No VTE Prior VTE?: No VTE Risk Level:: Medical - moderate - high VTE Device Contraindication: N/A - Device Ordered VTE Drug Contraindication: N/A - Med Ordered
[2023-04-12 18:17] LABS: Glucose, Whole Blood 179 mg/dL (60-115)
[2023-04-12] MEDS: QUEtiapine Fumarate 25 MG TABLET PO (20:34)
[2023-04-13] VITALS (29 sets, daily range): BP systolic 102–212; BP diastolic 46–79; PULSE 45–95; RESP 17–30; TEMP 35–37.5; O2SAT 90–100; BMI 43.3
[2023-04-13 00:11] LABS: Glucose, Whole Blood 166 mg/dL (60-115)
[2023-04-13] MEDS: Insulin Lispro 100 UNIT/ML 3 ML VIAL SUBCUT ×2 (00:11→05:25)
[2023-04-13] MEDS: dexmedeTOMIDidine HCL/NS 400 MCG/100 ML INFUS..BTL 19.29 MCG IVCONT (00:11)
[2023-04-13] MEDS: Doxycycline Hyclate 100 MG in 0.9 % Sodium Chloride 250 ML 166.67 MG IV (01:50)
[2023-04-13] MEDS: Midazolam HCl/PF 2 MG/2 ML VIAL IVPUSH ×5 (01:56→06:01)
[2023-04-13] MEDS: methylPREDNISolone Sod Succ 40 MG/ML VIAL IVPUSH (01:56)
[2023-04-13 05:22] LABS: Glucose, Whole Blood 174 mg/dL (60-115)
[2023-04-13] MEDS: dexmedeTOMIDidine HCL/NS 400 MCG/100 ML INFUS..BTL 8.27 MCG IVCONT (05:24)
[2023-04-13] MEDS: Levothyroxine Sodium 100 MCG/5 ML VIAL 50 MCG IVPUSH (05:25)
[2023-04-13] MEDS: Heparin Sodium,Porcine 5,000 UNIT/ML VIAL 5000 UNIT SUBCUT ×3 (05:26→22:08)
[2023-04-13] MEDS: Albuterol/Iprat 2.5/0.5MG 3 ML AMPUL.NEB INHALE ×5 (05:26→19:36)
[2023-04-13 06:07] LABS: Basophils Percent Auto 0.1 % (0-2); Hematocrit 41.6 % (37.0-47.0); Hemoglobin 12.9 g/dl (12.0-16.0); Imm Gran Abs Auto 0.08 X10*3/uL (0.00-0.03); Imm Gran Pct Auto 0.7 % (0.0-0.4); Lymphocytes Absolute Auto 0.5 X10*3/uL (1.2-4.9); Lymphocytes Percent Auto 4.8 % (20-40); MANUAL DIFF FLAG SCAN; Mean Corpuscular Hemoglobin 27.7 pg (27.0-33.0); Mean Corpuscular Volume 89.3 fL (80.0-98.0); Mean Platelet Volume 9.7 fL (9.4-12.3); Monocytes Absolute Auto 0.3 X10*3/uL (0.1-1.2); Monocytes Percent Auto 3.1 % (2-11); Neutrophils Absolute Auto 10.1 x10*3/uL (2.0-8.3); Neutrophils Percent Auto 91.3 % (45-73); Platelet Count 278 X10*3/uL (160-400); Red Blood Count 4.66 X10*6/uL (4.20-5.50); Red Cell Distribution Width 16.6 % (11.0-16.0); SCAN SMEAR FLAG 1
[2023-04-13 06:14] LABS: Albumin Level 3.4 g/dL (3.5-5.0); Anion Gap 12 (12-20); Blood Urea Nitrogen 20 mg/dL (9-16); Calcium 9.8 mg/dL (8.4-10.2); Carbon Dioxide 21 mmol/L (22-29); Chloride 111 mmol/L (96-108); Creatinine Clr Calc Pharmacy 105.6; Estimated Glomerular Filt Rate > 60; Glucose Random 212 mg/dL (60-115); Magnesium 2.2 mg/dL (1.6-2.6); Phosphorus 3.7 mg/dL (2.7-4.5); Potassium 4.3 mmol/L (3.3-5.1); Sodium 140 mmol/L (135-145)
[2023-04-13 06:19] LABS: VBG Base Excess -1.2 mmol/L; VBG HCO3 21 mmol/L (22-26); VBG pCO2 29 mmHg; VBG pH 7.46 (7.32-7.43); VBG pO2 55 mmHg
[2023-04-13 06:26] LABS: Venous Blood Gas Refer to POC result
[2023-04-13 06:31] LABS: SLIDE REVIEW VERIFIED
[2023-04-13] MEDS: Chlorhexidine Gluc Oral Rinse 15 ML MOUTHWASH BUCCAL (07:19)
[2023-04-13] MEDS: Losartan Potassium 50 MG TABLET PO (07:19)
[2023-04-13] MEDS: Spironolactone 25 MG TABLET PO (07:19)
--- NOTE | 2023-04-13 10:55 | P.PNCC_ITS ---
Subjective Subjective Date of Service: 04/13/23 Interval History: 62-year-old morbidly obese female with COPD and an asthma presented with status asthmaticus and I thought on the basis of asthmatic bronchitis but she also had a congestive cardiomyopathy by my bedside echo with reduced ejection fraction at 40% and she definitely improved further with improving tidal volumes and respiratory effort when we started the combination of spironolactone and losartan and and SGLT 2 inhibitor and what she did develop in between was paroxysm of atrial flutter which was cured with Cardizem and we we have not resumed that she also demonstrated probable alternating conduction down the AV gar[place] fast pathway and slow pathway judging by the shifting degree of 1st degree block Critical Care Time (minutes): 45 Physical Exam Vital Signs: Vital Signs: Last Vital Signs Temp 98.4 F 04/13/23 08:00 Pulse 83 04/13/23 10:00 Resp 24 H 04/13/23 10:00 BP 127/69 04/13/23 10:00 Pulse Ox 96 04/13/23 10:00 O2 Del Method High Flow Nasal C annula 04/13/23 10:00 O2 Flow Rate 35 04/13/23 10:00 FiO2 28 04/13/23 10:00 Oxygen Flow Rate 2 04/06/23 13:41 BMI result Body Mass Index 43.3 Awake alert and cooperative Bedside echo with 40% ejection fraction besides mild hypokinesis otherwise normal mechanics Lungs with diminished bilateral breath sounds but no active adventitious sounds Abdomen benign no organomegaly Objective Data Labs 04/13/23 05:32 04/13/23 05:32 Labs: Laboratory Results - last 24 hr 04/12/23 04/12/23 04/13/23 12:05 18:13 00:07 WBC RBC Hgb Hct MCV MCH MCHC RDW Plt Count MPV Immature Gran % (Auto) Neut % (Auto) Lymph % (Auto) [place] % (Auto) Eos % (Auto) Baso % (Auto) Lymph # (Auto) [place] # (Auto) Eos # (Auto) Baso # (Auto) Abs Immat Gran (auto) Absolute Neuts (auto) Absolute Nucleated RBC Nucleated RBC % (auto) Smear Tech's Comments VBG pH VBG pCO2 VBG pO2 VBG HCO3 VBG O2 Saturation VBG Base Excess Sodium Potassium Chloride Carbon Dioxide Anion Gap BUN Creatinine Estim Creat Clear Calc Estimated GFR POC Glucose 141 H 179 H 166 H Random Glucose Calcium Phosphorus Magnesium Albumin 04/13/23 04/13/23 04/13/23 05:18 05:32 05:32 WBC 11.0 H RBC 4.66 Hgb 12.9 Hct 41.6 MCV 89.3 MCH 27.7 MCHC 31.0 RDW 16.6 H Plt Count 278 MPV 9.7 Immature Gran % (Auto) 0.7 H Neut % (Auto) 91.3 H Lymph % (Auto) 4.8 L [place] % (Auto) 3.1 Eos % (Auto) 0.0 Baso % (Auto) 0.1 Lymph # (Auto) 0.5 L [place] # (Auto) 0.3 Eos # (Auto) 0.0 Baso # (Auto) 0.0 Abs Immat Gran (auto) 0.08 H Absolute Neuts (auto) 10.1 H Absolute Nucleated RBC 0.000 Nucleated RBC % (auto) 0.0 Smear Tech's Comments VERIFIED VBG pH VBG pCO2 VBG pO2 VBG HCO3 VBG O2 Saturation VBG Base Excess Sodium 140 Potassium 4.3 Chloride 111 H Carbon Dioxide 21 L Anion Gap 12 BUN 20 H Creatinine 0.62 Estim Creat Clear Calc 105.6 Estimated GFR > 60 POC Glucose 174 H Random Glucose 212 H Calcium 9.8 Phosphorus 3.7 Magnesium 2.2 Albumin 3.4 L 04/13/23 06:08 WBC RBC Hgb Hct MCV MCH MCHC RDW Plt Count MPV Immature Gran % (Auto) Neut % (Auto) Lymph % (Auto) [place] % (Auto) Eos % (Auto) Baso % (Auto) Lymph # (Auto) [place] # (Auto) Eos # (Auto) Baso # (Auto) Abs Immat Gran (auto) Absolute Neuts (auto) Absolute Nucleated RBC Nucleated RBC % (auto) Smear Tech's Comments VBG pH 7.46 H VBG pCO2 29 VBG pO2 55 VBG HCO3 21 L VBG O2 Saturation 83.0 VBG Base Excess -1.2 Sodium Potassium Chloride Carbon Dioxide Anion Gap BUN Creatinine Estim Creat Clear Calc Estimated GFR POC Glucose Random Glucose Calcium Phosphorus Magnesium Albumin Microbiology Microbiology Results: Microbiology 04/06/23 15:01 Blood - Venous Blood Culture - Final No growth after 5 days. 04/06/23 14:22 Blood - Venous Blood Culture - Final No growth after 5 days. 04/09/23 09:11 Sputum - Suctioned Gram Stain - Final 04/09/23 09:11 Sputum - Suctioned Sputum Culture - Final 04/07/23 14:19 Sputum - Suctioned Gram Stain - Final 04/07/23 14:19 Sputum - Suctioned Sputum Culture - Final Progress Note: A&P Assessment and plan (1) Atrial flutter with rapid ventricular response: Status: Acute (2) Acute metabolic encephalopathy: Status: Acute (3) Hypernatremia: Status: Acute (4) Obesity with alveolar hypoventilation: Status: Acute (5) Syncope: Status: Acute (6) Fall: Status: Acute (7) Hypercapnic respiratory failure: Status: Acute (8) Pneumonia: Status: Acute (9) Hypoxemia: Status: Acute (10) Restrictive lung disease: Status: Acute (11) COPD (chronic obstructive pulmonary disease): Status: Acute (12) FRANKI (obstructive sleep apnea): Status: Acute (13) Obesity: Status: Acute Plan So this morning successfully extubated no respiratory distress doing well on high-flow with 35 L no diaphragmatic effort no accessory muscle use and blood pressure is 128/68 oxygen saturation 93-94% sinus rhythm at 87 and she passed swallowing she is tolerating her 1st feeding If remaining stable potential transfer to [facility] Quality Stroke Does the patient have a stroke diagnosis?: No VTE Prior VTE?: No VTE Risk Level:: Medical - moderate - high VTE Device Contraindication: N/A - Device Ordered VTE Drug Contraindication: N/A - Med Ordered
[2023-04-13 11:15] LABS: Glucose, Whole Blood 124 mg/dL (60-115)
[2023-04-13 16:00] LABS: Glucose, Whole Blood 128 mg/dL (60-115)
[2023-04-13] MEDS: QUEtiapine Fumarate 25 MG TABLET PO (20:31)
[2023-04-13 20:49] LABS: Glucose, Whole Blood 107 mg/dL (60-115)
[2023-04-14] VITALS (12 sets, daily range): BP systolic 105–140; BP diastolic 53–66; PULSE 75–91; RESP 18–22; TEMP 36.1–36.7; O2SAT 90–97; BMI 42.2
[2023-04-14] MEDS: Albuterol/Iprat 2.5/0.5MG 3 ML AMPUL.NEB INHALE ×6 (05:23→23:11)
--- NOTE | 2023-04-14 05:53 | PC.NURSE ---
Pt transferred from ICU to Med-Tele unit. A&O to person. Dutch speaking but able to make needs known. No c/o pain or discomfort. No s/sx respiratory distress. On 2L O2 while awake and BiPAP during sleep. Vazquez cath patent draining CYU. Repositioned with 2 assist. NST w/ 1st degree HB and PVCs on engine monitor. Video monitor on for safety. Call ratliff within reach. Bed in lowest locked position.
[2023-04-14] MEDS: Levothyroxine Sodium 100 MCG/5 ML VIAL 50 MCG IVPUSH (06:03)
[2023-04-14] MEDS: Heparin Sodium,Porcine 5,000 UNIT/ML VIAL 5000 UNIT SUBCUT ×3 (06:04→21:42)
[2023-04-14 07:01] LABS: VBG Base Excess 3.5 mmol/L; VBG HCO3 31 mmol/L (22-26); VBG pCO2 63 mmHg; VBG pO2 61 mmHg
[2023-04-14 07:03] LABS: MANUAL DIFF FLAG NO
[2023-04-14 07:05] LABS: Basophils Percent Auto 0.2 % (0-2); Eosinophils Percent Auto 0.1 % (0-4); Hematocrit 44.2 % (37.0-47.0); Hemoglobin 13.1 g/dl (12.0-16.0); Imm Gran Abs Auto 0.09 X10*3/uL (0.00-0.03); Imm Gran Pct Auto 0.8 % (0.0-0.4); Lymphocytes Absolute Auto 1.9 X10*3/uL (1.2-4.9); Lymphocytes Percent Auto 16.5 % (20-40); Mean Corpuscular HGB Conc 29.6 g/dl (31.0-35.0); Mean Corpuscular Hemoglobin 27.3 pg (27.0-33.0); Mean Corpuscular Volume 92.3 fL (80.0-98.0); Mean Platelet Volume 9.4 fL (9.4-12.3); Monocytes Absolute Auto 1.4 X10*3/uL (0.1-1.2); Monocytes Percent Auto 12.1 % (2-11); Neutrophils Absolute Auto 8.2 x10*3/uL (2.0-8.3); Neutrophils Percent Auto 70.3 % (45-73); Platelet Count 274 X10*3/uL (160-400); Red Blood Count 4.79 X10*6/uL (4.20-5.50); Red Cell Distribution Width 16.8 % (11.0-16.0); White Blood Count 11.7 X10*3/uL (4.8-10.8)
[2023-04-14 07:07] LABS: Venous Blood Gas Refer to POC result
--- NOTE | 2023-04-14 07:55 | PC.NURSE ---
Patient's TLC removed from left IJ. Blue tip intact. Tolerated well.
[2023-04-14 08:09] LABS: Glucose, Whole Blood 91 mg/dL (60-115)
[2023-04-14 08:43] LABS: Albumin Level 3.1 g/dL (3.5-5.0); Anion Gap 11 (12-20); Blood Urea Nitrogen 20 mg/dL (9-16); Calcium 9.4 mg/dL (8.4-10.2); Carbon Dioxide 27 mmol/L (22-29); Chloride 108 mmol/L (96-108); Creatinine Clr Calc Pharmacy 100.8; Estimated Glomerular Filt Rate > 60; Glucose Random 87 mg/dL (60-115); Magnesium 2.1 mg/dL (1.6-2.6); Phosphorus 4.4 mg/dL (2.7-4.5); Potassium 3.5 mmol/L (3.3-5.1); Sodium 142 mmol/L (135-145)
[2023-04-14] MEDS: Aspirin Enteric Coated 81 MG TABLET.DR PO (09:54)
[2023-04-14] MEDS: Spironolactone 25 MG TABLET PO (09:54)
[2023-04-14] MEDS: Losartan Potassium 50 MG TABLET PO (09:54)
[2023-04-14] MEDS: predniSONE 20 MG TABLET 40 MG PO (09:54)
--- NOTE | 2023-04-14 10:31 | MHC.CM.PN ---
Per ROUNDS discussion, Patient is not yet medically cleared for dc; Patient may benefit from a PT eval to assist with disposition. CM will follow.
[2023-04-14 11:50] LABS: Glucose, Whole Blood 155 mg/dL (60-115)
--- NOTE | 2023-04-14 12:00 | CA_ITS ---
Transthoracic Echocardiogram Patient (Last, First, Middle): Marge Washington D Gender: Female Date of : 1960 Age: 62 Procedure Date: 04/14/2023 Procedure Type: Transthoracic Echocardiogram [place] [facility] [place]: 157.48 cm Weight: 104.33 kg BSA: 2.03 m2 Heart Rate: 80 bpm BP: 105 / 56 mmHg Tow Mate: RENATA Referring MD: Gabi Medeiros MD Symptoms: New onset A.Flutter Study Quality: Adequate w contrast ECG Rhythm: Sinus Conclusions: - The left ventricular systolic function is hyperdynamic. The visually estimated ejection fraction is >70%. - Possible basal inferolateral hypokinesis, but difficult to assess. - No obvious valvular pathology seen on this study. Findings Procedure Information Contrast agent, definity, is being given per protocol without apparent complications. Left Ventricle Normal left ventricular cavity size. There is mildly increased left ventricular wall thickness. The left ventricular systolic function is hyperdynamic. The visually estimated ejection fraction is >70%. Regional wall motion abnormalities can not be excluded due to suboptimal endocardial definition. Diastolic function is normal for age. Possible basal inferolateral hypokinesis, but difficult to assess. Right Ventricle Normal right ventricular cavity size and systolic function. Atria Both atria are normal in size. Aortic Valve There is a normal trileaflet aortic valve. There is no aortic valve stenosis. There is no aortic valve regurgitation. Mitral Valve The mitral valve appears normal. There is no mitral valve regurgitation. There is no mitral valve stenosis. Pulmonic Valve The pulmonic valve is likely normal. Tricuspid Valve There is trace tricuspid valve regurgitation. There is no evidence of pulmonary hypertension. Great Vessels The asc aorta is normal in size. Venous The inferior vena cava is normal in size and collapses greater than 50% with inspiration. Pericardium/Pleural Prominent epicardial adipose tissue noted. There is no evidence of pericardial effusion. Prior Study Comparison Changes noted compared to prior study dated: 12/26/2020. LV hyperdynamic. See comment on wall motion. Recommendations, Care & Conclusions No obvious valvular pathology seen on this study. Measurements 2D Linear Measurements IVSd: 1.17 0.6-0.9/0.6-1.0 cm LVIDd: 5.49 3.9-5.3/4.2-5.9 cm LVIDd Index: 2.70 2.4-3.2/2.2-3.1 cm/m2 LVIDs: 4.03 2.0-3.6 cm LVPWd: 1.42 0.7-1.1 cm LA Diam: 3.00 2.7-3.8/3.0-4.0 cm LAIDs Index: 1.48 1.5-2.3 cm/m2 LV Mass: 376.53 67-162/88-224 g LV Mass Index: 185.48 43-95/49-115 g/m2 LVOT Diam: 2.10 3.0+(-)1.3 cm 2D Systolic Function EF 4C: 73.10 >55% EF 2C: 71.60 >55% EF BiP: 71.50 >55% Mitral Valve MV Pk E: 0.74 MV PK A: 1.01 MV Decel Time: 329.00 E/A: 0.70 E'Lateral: 6.85 E'Medial: 4.24 E/E' Med: 17.40 E/E' Lat: 10.80 PHT: 96.00 MVA PHT: 2.29 Decel [place]: 2.24 Aortic Valve AoV Pk Fredrick: 1.95 AoV Mn Fredrick: 1.45 AoV VTI: 0.34 AoV Pk Grad: 15.00 Aov Mn Grad: 9.00 SANDOVAL Cont.VTI: 2.73 LVOT LVOT Pk Fredrick: 1.63 LVOT Mn Fredrick: 1.20 LVOT VTI: 0.27 LVOT Pk Grad: 11.00 LVOT Mn Grad: 7.00 LVOT Diam: 2.10 LVOT Area: 3.46 Diastolic Function MV Pk E: 0.74 MV Pk A: 1.01 E/A: 0.70 E'Medial: 4.24 E/E' Med: 17.40 E' Laterial: 6.85 E/E' Lat: 10.80 Right Ventricle TAPSE (mm): 17.30 TVS' Fredrick: 16.20 Tricuspid Valve TR Pk Fredrick: 1.37 TR Pk Grad: 8.00 RA Press: 3.00 RVSP: 11.00 Great Vessels Aorta Sinus of Valsalva: 3.50 2.0-3.5 cm Ao Asc: 2.90 2.1-3.4 cm Pulmonary Valve PV Pk Fredrick: 1.57 Peak PV Grad: 10.00 Updated in Other Vendor System with Status of Final Andrés Corrales MD electronically signed on 04/14/2023 4:41:21 PM with status of Final
--- NOTE | 2023-04-14 12:13 | MHC.CLN ---
F/U PT TRANSFERRED FROM ICU ON 04/14 EXTUBATED DIET RX: REGULAR-APPROPRIATE PO 25-75% RD TO FOLLOW WEEKLY
--- NOTE | 2023-04-14 12:14 | P.PNIM_ITS ---
Subjective Subjective Date of Service: 04/14/23 Interval History: Seen and evaluated this morning with the interpretor Feels better overall Tolerating modified diet To start PT Constipated no other overnight events Review of Systems Review of Systems: Yes all other systems are reviewed and are negative Physical Exam Vital Signs: Vital Signs: Last Vital Signs Temp 97.4 F 04/14/23 11:00 Pulse 76 04/14/23 11:00 Resp 22 H 04/14/23 11:00 BP 105/56 L 04/14/23 11:00 Pulse Ox 92 04/14/23 11:00 O2 Del Method Nasal Cannula 04/14/23 11:00 O2 Flow Rate 1 04/14/23 11:00 FiO2 28 04/13/23 13:00 Oxygen Flow Rate 2 04/06/23 13:41 BMI result Body Mass Index 42.2 Const: Other: Constitutional : Awake, interactive, not in distress Neck : Normal inspection, Supple Cardiovascular : RRR, no JVP, trace bilateral lower extremity edema Respiratory : fair bilateral air entry, no crackles, fine scattered wheezes Gastrointestinal: soft, lax, Normal bowel sounds, Non tender Skin : Warm, Dry Neurological : Alert & oriented x3, No focal deficit Objective Data Active Medications Albuterol/Ipratropium (Albuterol/Iprat 2.5/0.5mg 3 Ml Ampul.Neb) 3 ml INHALE RQ4H [facility] Last Admin: 04/14/23 10:56 Dose: 3 ml Documented By: JALYN Aspirin (Aspirin Enteric Coated 81 Mg Tablet.) 81 mg PO DAILY [facility] Last Admin: 04/14/23 09:54 Dose: 81 mg Documented By: JOSE MANUEL Dextrose (Dextrose 50 % 25 Gm/50 Ml Syringe) 25 gm IVPUSH Q15M PRN; Protocol PRN Reason: per Hypoglycemia Standing Ord. Dextrose (Dextrose 50 % 25 Gm/50 Ml Syringe) 25 gm IVPUSH Q15M PRN; Protocol PRN Reason: per Hypoglycemia Standing Ord. Docusate Sodium (Docusate Sodium 100 Mg Capsule) 100 mg PO BID PRN PRN Reason: Constipation Glucose (Glucose Gel 15 Gm Gel..Gram.) 15 gm PO Q15M PRN; Protocol PRN Reason: per Hypoglycemia Standing Ord. Glucose (Glucose Gel 15 Gm Gel..Gram.) 15 gm PO Q15M PRN; Protocol PRN Reason: per Hypoglycemia Standing Ord. Heparin Sodium (Porcine) (Heparin Sodium,Porcine 5,000 Unit/Ml Vial) 5,000 unit SUBCUT Q8H [facility] Last Admin: 04/14/23 06:04 Dose: 5,000 unit Documented By: ANALI Insulin Human Lispro (Insulin Lispro 100 Unit/Ml 3 Ml Vial) 0 unit SUBCUT Q IDACHS [facility]; Protocol Last Admin: 04/14/23 09:49 Dose: Not Given Documented By: JOSE MANUEL Non-Admin Reason: No Insulin Coverage Levothyroxine Sodium (Levothyroxine Sodium 100 Mcg/5 Ml Vial) 50 mcg IVPUSH DAILY@0600 [facility] Last Admin: 04/14/23 06:03 Dose: 50 mcg Documented By: ANALI Losartan Potassium (Losartan Potassium 50 Mg Tablet) 50 mg PO DAILY [facility]; Protocol Last Admin: 04/14/23 09:54 Dose: 50 mg Documented By: JOSE MANUEL Pharmacy Consult (Consult Rx Perform Med Rec) 1 each MISCELLANE ONCE PRN PRN Reason: Consult order Prednisone (Prednisone 20 Mg Tablet) 40 mg PO DAILY [facility] Last Admin: 04/14/23 09:54 Dose: 40 mg Documented By: JOSE MANUEL Quetiapine Fumarate (Quetiapine Fumarate 25 Mg Tablet) 25 mg PO BEDTIME [facility] Last Admin: 04/13/23 20:31 Dose: 25 mg Documented By: ADOLFO Spironolactone (Spironolactone 25 Mg Tablet) 25 mg PO DAILY [facility]; Protocol Last Admin: 04/14/23 09:54 Dose: 25 mg Documented By: JOSE MANUEL Labs 04/14/23 06:48 04/14/23 06:48 Labs: Laboratory Results - last 24 hr 04/13/23 04/13/23 04/14/23 15:57 20:45 06:48 MCV 92.3 MCH 27.3 MCHC 29.6 L RDW 16.8 H Plt Count 274 MPV 9.4 Immature Gran % (Auto) 0.8 H Neut % (Auto) 70.3 Lymph % (Auto) 16.5 L Navarro % (Auto) 12.1 H Eos % (Auto) 0.1 Baso % (Auto) 0.2 Lymph # (Auto) 1.9 Navarro # (Auto) 1.4 H Eos # (Auto) 0.0 Baso # (Auto) 0.0 Abs Immat Gran (auto) 0.09 H Absolute Neuts (auto) 8.2 Absolute Nucleated RBC 0.000 Nucleated RBC % (auto) 0.0 VBG pH VBG pCO2 VBG pO2 VBG HCO3 VBG O2 Saturation VBG Base Excess Anion Gap Estim Creat Clear Calc Estimated GFR POC Glucose 128 H 107 Random Glucose Calcium Phosphorus Magnesium Albumin 04/14/23 04/14/23 04/14/23 06:48 06:54 07:28 MCV MCH MCHC RDW Plt Count MPV Immature Gran % (Auto) Neut % (Auto) Lymph % (Auto) Navarro % (Auto) Eos % (Auto) Baso % (Auto) Lymph # (Auto) Navarro # (Auto) Eos # (Auto) Baso # (Auto) Abs Immat Gran (auto) Absolute Neuts (auto) Absolute Nucleated RBC Nucleated RBC % (auto) VBG pH 7.30 L VBG pCO2 63 VBG pO2 61 VBG HCO3 31 H VBG O2 Saturation 86.0 VBG Base Excess 3.5 Anion Gap 11 L Estim Creat Clear Calc 100.8 Estimated GFR > 60 POC Glucose 91 Random Glucose 87 Calcium 9.4 Phosphorus 4.4 Magnesium 2.1 Albumin 3.1 L 04/14/23 11:38 MCV MCH MCHC RDW Plt Count MPV Immature Gran % (Auto) Neut % (Auto) Lymph % (Auto) Navarro % (Auto) Eos % (Auto) Baso % (Auto) Lymph # (Auto) Navarro # (Auto) Eos # (Auto) Baso # (Auto) Abs Immat Gran (auto) Absolute Neuts (auto) Absolute Nucleated RBC Nucleated RBC % (auto) VBG pH VBG pCO2 VBG pO2 VBG HCO3 VBG O2 Saturation VBG Base Excess Anion Gap Estim Creat Clear Calc Estimated GFR POC Glucose 155 H Random Glucose Calcium Phosphorus Magnesium Albumin Assessment and Plan (1) Atrial flutter with rapid ventricular response: Status: Acute (2) FRANKI (obstructive sleep apnea): Status: Acute (3) Acute exacerbation of chronic obstructive pulmonary disease: Status: Inactive Plan A 62 years old lady with PMH of COPD, Asthma admitted to ICU for status asthmaticus requiring intubation. developed Aflutter w RvR and evidence of low EF. extubated 04/13 and transferred to medical floor for further management. Status asthmaticus, resolved Continue nebs PO steroids Wean O2 down new onset A.Flutter w RvR converted to sinus rhythm Cardio to eval check ECHO not on AC, CHADVASC of 2 Hx diastolic CHF bedside Echo in ICU showed EF of 40% Lasix on hold as well as Metolazone since admission Not in fluid overload get cardio eval for medications adjustment Losartan started in ICU, decrease to 25 mg for low BP readings Physical deconditioning PT eval FRANKI CPAP at night DVT PPx Heparin The patient will need overnight hospital stay for PT eval, Cardiology consultation and safe discahrge plan Time Spent With Patient Time: Total time managing care of this patient today ____ minutes. Quality Stroke Does the patient have a stroke diagnosis?: No VTE Prior VTE?: No VTE Risk Level:: Medical - moderate - high VTE Device Contraindication: N/A - Device Ordered VTE Drug Contraindication: N/A - Med Ordered
[2023-04-14] MEDS: Insulin Lispro 100 UNIT/ML 3 ML VIAL SUBCUT ×2 (12:19→21:42)
[2023-04-14] MEDS: polyethylene glycoL 3350 17 GM POWD.PACK PO (13:18)
[2023-04-14 15:33] LABS: Glucose, Whole Blood 130 mg/dL (60-115)
[2023-04-14 19:50] LABS: Glucose, Whole Blood 171 mg/dL (60-115)
[2023-04-14] MEDS: QUEtiapine Fumarate 25 MG TABLET PO (21:42)
[2023-04-15] VITALS (7 sets, daily range): BP systolic 117–140; BP diastolic 56–62; PULSE 62–82; RESP 15–22; TEMP 36.2–36.7; O2SAT 94–98; BMI 42.5
[2023-04-15] MEDS: Heparin Sodium,Porcine 5,000 UNIT/ML VIAL 5000 UNIT SUBCUT ×2 (06:25→14:46)
[2023-04-15] MEDS: Levothyroxine Sodium 100 MCG/5 ML VIAL 50 MCG IVPUSH (06:26)
--- NOTE | 2023-04-15 06:37 | PC.NURSE ---
Patient's Vazquez catheter removed @ 0600.
[2023-04-15 06:47] LABS: Hematocrit 43.3 % (37.0-47.0); Hemoglobin 12.9 g/dl (12.0-16.0); Mean Corpuscular HGB Conc 29.8 g/dl (31.0-35.0); Mean Corpuscular Hemoglobin 27.3 pg (27.0-33.0); Mean Corpuscular Volume 91.7 fL (80.0-98.0); Mean Platelet Volume 9.6 fL (9.4-12.3); Platelet Count 264 X10*3/uL (160-400); Red Blood Count 4.72 X10*6/uL (4.20-5.50); Red Cell Distribution Width 16.5 % (11.0-16.0); White Blood Count 12.5 X10*3/uL (4.8-10.8)
[2023-04-15 07:01] LABS: Anion Gap 12 (12-20); Blood Urea Nitrogen 18 mg/dL (9-16); Calcium 9.9 mg/dL (8.4-10.2); Carbon Dioxide 27 mmol/L (22-29); Chloride 106 mmol/L (96-108); Creatinine Clr Calc Pharmacy 115.3; Estimated Glomerular Filt Rate > 60; Glucose Random 90 mg/dL (60-115); Potassium 3.7 mmol/L (3.3-5.1); Sodium 141 mmol/L (135-145)
[2023-04-15 07:27] LABS: Glucose, Whole Blood 98 mg/dL (60-115)
[2023-04-15] MEDS: Albuterol/Iprat 2.5/0.5MG 3 ML AMPUL.NEB INHALE ×2 (07:45→15:52)
[2023-04-15] MEDS: Aspirin Enteric Coated 81 MG TABLET.DR PO (08:35)
[2023-04-15] MEDS: Spironolactone 25 MG TABLET PO (08:35)
[2023-04-15] MEDS: Losartan Potassium 25 MG TABLET PO (08:35)
[2023-04-15] MEDS: predniSONE 20 MG TABLET 40 MG PO (08:35)
[2023-04-15 11:41] LABS: Glucose, Whole Blood 188 mg/dL (60-115)
[2023-04-15] MEDS: Insulin Lispro 100 UNIT/ML 3 ML VIAL SUBCUT ×2 (11:45→16:54)
--- NOTE | 2023-04-15 13:56 | HO.PM.IMPN ---
Subjective Subjective Date of Service: 04/16/23 Interval History: new onset afib ,hx of diastolic CHF Review of Systems sob somewhat improving,taper oxygen denies any chest pain or fever or chills Physical Exam Vital Signs: Vital Signs: Last Vital Signs Temp 98.1 F 04/15/23 11:00 Pulse 75 04/15/23 11:00 Resp 20 04/15/23 11:00 BP 117/56 L 04/15/23 11:00 Pulse Ox 94 04/15/23 11:00 O2 Del Method Nasal Cannula 04/15/23 11:00 O2 Flow Rate 2 04/15/23 11:00 FiO2 28 04/13/23 13:00 Oxygen Flow Rate 2 04/06/23 13:41 BMI result Body Mass Index 42.5 Constitutional : Awake, interactive, not in distress Neck : Normal inspection, Supple Cardiovascular : RRR, no JVP, trace bilateral lower extremity edema Respiratory : air entry fair ,? no crackles, fine scattered wheezes Gastrointestinal:? soft, lax, Normal bowel sounds, Non tender Skin : Warm, Dry Neurological : Alert & oriented x3, No focal deficit Objective Data Active Medications Albuterol/Ipratropium (Albuterol/Iprat 2.5/0.5mg 3 Ml Ampul.Neb) 3 ml INHALE RQ4H [facility] Last Admin: 04/15/23 12:25 Dose: Not Given Documented By: FELIX Non-Admin Reason: Patient Refused Aspirin (Aspirin Enteric Coated 81 Mg Tablet.) 81 mg PO DAILY [facility] Last Admin: 04/15/23 08:35 Dose: 81 mg Documented By: JOSE MANUEL Dextrose (Dextrose 50 % 25 Gm/50 Ml Syringe) 25 gm IVPUSH Q15M PRN; Protocol PRN Reason: per Hypoglycemia Standing Ord. Dextrose (Dextrose 50 % 25 Gm/50 Ml Syringe) 25 gm IVPUSH Q15M PRN; Protocol PRN Reason: per Hypoglycemia Standing Ord. Docusate Sodium (Docusate Sodium 100 Mg Capsule) 100 mg PO BID PRN PRN Reason: Constipation Glucose (Glucose Gel 15 Gm Gel..Gram.) 15 gm PO Q15M PRN; Protocol PRN Reason: per Hypoglycemia Standing Ord. Glucose (Glucose Gel 15 Gm Gel..Gram.) 15 gm PO Q15M PRN; Protocol PRN Reason: per Hypoglycemia Standing Ord. Heparin Sodium (Porcine) (Heparin Sodium,Porcine 5,000 Unit/Ml Vial) 5,000 unit SUBCUT Q8H [facility] Last Admin: 04/15/23 06:25 Dose: 5,000 unit Documented By: CYN Insulin Human Lispro (Insulin Lispro 100 Unit/Ml 3 Ml Vial) 0 unit SUBCUT QIDACHS [facility]; Protocol Last Admin: 04/15/23 11:45 Dose: 2 unit Documented By: JOSE MANUEL Levothyroxine Sodium (Levothyroxine Sodium 100 Mcg/5 Ml Vial) 50 mcg IVPUSH DAILY@0600 [facility] Last Admin: 04/15/23 06:26 Dose: 50 mcg Documented By: CYN Losartan Potassium (Losartan Potassium 25 Mg Tablet) 25 mg PO DAILY [facility]; Protocol Last Admin: 04/15/23 08:35 Dose: 25 mg Documented By: JOSE MANUEL Pharmacy Consult (Consult Rx Perform Med Rec) 1 each MISCELLANE ONCE PRN PRN Reason: Consult order Polyethylene Glycol (Polyethylene Glycol 3350 17 Gm Powd.Pack) 17 gm PO DAILY [facility] Last Admin: 04/15/23 08:43 Dose: Not Given Documented By: JOSE MANUEL Non-Admin Reason: pt. having loose stools Prednisone (Prednisone 20 Mg Tablet) 40 mg PO DAILY [facility] Last Admin: 04/15/23 08:35 Dose: 40 mg Documented By: JOSE MANUEL Quetiapine Fumarate (Quetiapine Fumarate 25 Mg Tablet) 25 mg PO BEDTIME [facility] Last Admin: 04/14/23 21:42 Dose: 25 mg Documented By: CYN Spironolactone (Spironolactone 25 Mg Tablet) 25 mg PO DAILY [facility]; Protocol Last Admin: 04/15/23 08:35 Dose: 25 mg Documented By: JOSE MANUEL Labs 04/15/23 06:02 04/15/23 06:02 Labs: Laboratory Results - last 24 hr 04/14/23 04/14/23 04/15/23 15:25 19:41 06:02 MCV 91.7 MCH 27.3 MCHC 29.8 L RDW 16.5 H Plt Count 264 MPV 9.6 Absolute Nucleated RBC 0.000 Nucleated RBC % (auto) 0.0 Anion Gap Estim Creat Clear Calc Estimated GFR POC Glucose 130 H 171 H Random Glucose Calcium 04/15/23 04/15/23 04/15/23 06:02 07:12 11:25 MCV MCH MCHC RDW Plt Count MPV Absolute Nucleated RBC Nucleated RBC % (auto) Anion Gap 12 Estim Creat Clear Calc 115.3 Estimated GFR > 60 POC Glucose 98 188 H Random Glucose 90 Calcium 9.9 Assessment and Plan (1) Atrial flutter with rapid ventricular response: Status: Acute Plan 62 years old lady with PMH of COPD, Asthma admitted to ICU for status asthmaticus requiring intubation. developed Aflutter w RvR and evidence of low EF. extubated 04/13 and transferred to medical floor for further management. Status asthmaticus, resolved Continue nebs PO steroids Wean O2 down new onset A.Flutter w RvR converted to sinus rhythm Cardio to eval check ECHO not on AC, CHADVASC of 2 Hx diastolic CHF bedside Echo in ICU showed EF of 40% Lasix on hold as well as Metolazone since admission Not in fluid overload get cardio eval for medications adjustment Losartan started in ICU, decrease to 25 mg for low BP readings Physical deconditioning PT eval FRANKI CPAP at night DVT PPx Heparin inpatient need :hospital stay for PT eval, Cardiology consultation and safe discahrge plan, need rehab placement Time Spent With Patient Time: Total time managing care of this patient today ____ minutes. Quality Stroke Does the patient have a stroke diagnosis?: No VTE Prior VTE?: No VTE Risk Level:: Medical - moderate - high VTE Device Contraindication: N/A - Device Ordered VTE Drug Contraindication: N/A - Med Ordered
--- NOTE | 2023-04-15 15:30 | PM.CNCAR ---
History of Present Illness History of Present Illness Date of Service: 04/15/23 Requesting physician: Magi West Chief complaint: Atrial flutter. Narrative: 62-year-old female who we have been asked him help with management of atrial flutter. She was in the intensive care unit with acute exacerbation of chronic obstructive pulmonary disease. While in the ICU is documented that she had atrial flutter. Also an echocardiogram was performed by the advertising account representative where low ejection fraction was noted. Subsequent to that she had an official echocardiogram on 04/14/2023 which showed hyperdynamic LV more than 70% ejection fraction with some concern for basal inferolateral hypokinesis. Right ventricular systolic function was normal with normal right ventricular size. No obvious valvular issues was noticed. Denying any chest pain or shortness of breath. Overall right now she is asymptomatic. [facility] Past Medical History Medical History COPD (chronic obstructive pulmonary disease) Hypoxemia Obesity FRANKI (obstructive sleep apnea) Pneumonia Restrictive lung disease Surgical History Surgical History History of cholecystectomy Social History Social History Household Members: Unknown / Unable to assess Housing: Unknown / Unable to assess Do you presently have visiting nurse or other home services: Yes Unable to assess alcohol history related to: Unknown Alcohol intake: never Patient Tobacco Use Status: Never used Tobacco Smoked in Last 30 Days: No Use of substances other than those prescribed or required for medical reasons: Unknown Currently Displaying Signs/Symptoms of Drug Intoxication Withdrawal: No Advance Directives: No Advance Directives Information Provided: Yes Do you have thoughts of harming others: None Do you have a plan to hurt others: No Plan Recently lost weight without trying: Unsure How much weight loss: Unsure Eating poorly because of decreased appetite: No Nutrition screen score: 4 Nutrition Risks: No Nutritional Risk Patient : No : No Poor oral hygiene: No service: No Meds Allergies Allergy/AdvReac Type Severity Reaction Status Date / Time levofloxacin [From Levaquin] Allergy Intermediate HIVES Verified 04/07/23 03:37 Penicillins AdvReac Severe FAINTS Verified 04/06/23 13:46 Active Medications: Current Medications Albuterol/Ipratropium (Albuterol/Iprat 2.5/0.5mg 3 Ml Ampul.Neb) 3 ml INHALE RQ4H [facility] Last Admin: 04/15/23 12:25 Dose: Not Given Aspirin (Aspirin Enteric Coated 81 Mg Tablet.Dr) 81 mg PO DAILY [facility] Last Admin: 04/15/23 08:35 Dose: 81 mg Dextrose (Dextrose 50 % 25 Gm/50 Ml Syringe) 25 gm IVPUSH Q15M PRN; Protocol PRN Reason: per Hypoglycemia Standing Ord. Dextrose (Dextrose 50 % 25 Gm/50 Ml Syringe) 25 gm IVPUSH Q15M PRN; Protocol PRN Reason: per Hypoglycemia Standing Ord. Docusate Sodium (Docusate Sodium 100 Mg Capsule) 100 mg PO BID PRN PRN Reason: Constipation Glucose (Glucose Gel 15 Gm Gel..Gram.) 15 gm PO Q15M PRN; Protocol PRN Reason: per Hypoglycemia Standing Ord. Glucose (Glucose Gel 15 Gm Gel..Gram.) 15 gm PO Q15M PRN; Protocol PRN Reason: per Hypoglycemia Standing Ord. Heparin Sodium (Porcine) (Heparin Sodium,Porcine 5,000 Unit/Ml Vial) 5,000 unit SUBCUT Q8H [facility] Last Admin: 04/15/23 14:46 Dose: 5,000 unit Insulin Human Lispro (Insulin Lispro 100 Unit/Ml 3 Ml Vial) 0 unit SUBCUT QIDACHS [facility]; Protocol Last Admin: 04/15/23 11:45 Dose: 2 unit Levothyroxine Sodium (Levothyroxine Sodium 100 Mcg/5 Ml Vial) 50 mcg IVPUSH DAILY@0600 [facility] Last Admin: 04/15/23 06:26 Dose: 50 mcg Losartan Potassium (Losartan Potassium 25 Mg Tablet) 25 mg PO DAILY [facility]; Protocol Last Admin: 04/15/23 08:35 Dose: 25 mg Pharmacy Consult (Consult Rx Perform Med Rec) 1 each MISCELLANE ONCE PRN PRN Reason: Consult order Polyethylene Glycol (Polyethylene Glycol 3350 17 Gm Powd.Pack) 17 gm PO DAILY [facility] Last Admin: 04/15/23 08:43 Dose: Not Given Prednisone (Prednisone 20 Mg Tablet) 40 mg PO DAILY [facility] Last Admin: 04/15/23 08:35 Dose: 40 mg Quetiapine Fumarate (Quetiapine Fumarate 25 Mg Tablet) 25 mg PO BEDTIME [facility] Last Admin: 04/14/23 21:42 Dose: 25 mg Spironolactone (Spironolactone 25 Mg Tablet) 25 mg PO DAILY [facility]; Protocol Last Admin: 04/15/23 08:35 Dose: 25 mg Tamsulosin HCl (Tamsulosin Hcl 0.4 Mg Capsule) 0.4 mg PO BEDTIME [facility] Home Medications Medication Instructions Recorded Confirmed Last Taken Type aspirin 81 mg tablet,delayed 81 mg PO DAILY 08/08/20 04/06/23 04/06/23 History release docusate sodium 100 mg capsule 100 mg PO BID PRN Constipation 08/08/20 04/06/23 Unknown History furosemide 40 mg tablet 120 mg PO DAILY 08/08/20 04/06/23 04/06/23 History levothyroxine 100 mcg tablet 100 mcg PO DAILY@0630 08/08/20 04/06/23 04/06/23 History paliperidone palmitate 234 mg/1.5 234 mg IM Q28D 08/08/20 04/06/23 04/04/23 History mL intramuscular syringe sertraline 50 mg tablet 50 mg PO DAILY 08/08/20 04/06/23 04/06/23 History albuterol sulfate 90 mcg/actuation 2 puff inhalation Q4-6H PRN 11/12/21 04/06/23 12/26/22 History aerosol inhaler (Ventolin HFA) Shortness Of Breath cyanocobalamin (vitamin B-12) 1 tab PO DAILY 10/28/22 04/06/23 04/06/23 History 1,000 mcg tablet (Vitamin B-12) potassium chloride 20 mEq 2 tab PO DAILY 10/28/22 04/06/23 04/06/23 History tablet,extended release loratadine 10 mg tablet (Loradamed) 10 mg PO DAILY 12/16/22 04/06/23 12/26/22 History metolazone 5 mg tablet 5 mg PO DAILY PRN GREATER THAN 3 04/06/23 04/06/23 Unknown History POUND WT GAIN IN 1 DAY Physical Exam Vital Signs: Vital Signs: Last Vital Signs Temp 98.1 F 04/15/23 11:00 Pulse 75 04/15/23 11:00 Resp 20 04/15/23 11:00 BP 117/56 L 04/15/23 11:00 Pulse Ox 94 04/15/23 11:00 O2 Del Method Nasal Cannula 04/15/23 11:00 O2 Flow Rate 2 04/15/23 11:00 FiO2 28 04/13/23 13:00 Oxygen Flow Rate 2 04/06/23 13:41 BMI result Body Mass Index 42.5 GENERAL APPEARANCE: in no acute distress, pleasant. NECK: no carotid bruit, no jugular venous distention. SKIN: no suspicious lesions, warm and dry. HEART: no murmurs, regular rate and rhythm. LUNGS: clear to auscultation bilaterally. ABDOMEN: soft, nontender. EXTREMITIES: no edema. PERIPHERAL PULSES: equal. NEUROLOGIC: No gross deficits, AAO X 3 Objective Labs and Meds 04/15/23 06:02 04/15/23 06:02 Lab results: Laboratory Results - last 24 hr 04/14/23 04/14/23 04/15/23 15:25 19:41 06:02 WBC 12.5 H RBC 4.72 Hgb 12.9 Hct 43.3 MCV 91.7 MCH 27.3 MCHC 29.8 L RDW 16.5 H Plt Count 264 MPV 9.6 Absolute Nucleated RBC 0.000 Nucleated RBC % (auto) 0.0 Sodium Potassium Chloride Carbon Dioxide Anion Gap BUN Creatinine Estim Creat Clear Calc Estimated GFR POC Glucose 130 H 171 H Random Glucose Calcium 04/15/23 04/15/23 04/15/23 06:02 07:12 11:25 WBC RBC Hgb Hct MCV MCH MCHC RDW Plt Count MPV Absolute Nucleated RBC Nucleated RBC % (auto) Sodium 141 Potassium 3.7 Chloride 106 Carbon Dioxide 27 Anion Gap 12 BUN 18 H Creatinine 0.56 Estim Creat Clear Calc 115.3 Estimated GFR > 60 POC Glucose 98 188 H Random Glucose 90 Calcium 9.9 Assessment and Plan (1) Atrial flutter with rapid ventricular response: Status: Acute Plan [age] year female with background history of obesity hypoventilation and COPD presenting for COPD exacerbation and was noted to have atrial flutter while in the intensive care unit. There are no documented EKGs or scanned rhythm strips currently. She is 62 years old and has background of diastolic heart failure. Currently has chads Vasc score is 2 but I think in a month she will turn 63 and chads Vasc will be 3. She is a very vague historian and I am concerned that she may get atrial flutter and get complications like stroke. In my opinion she should be anticoagulated. 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 Thank you for allowing me to participate in the care of your patient. Please feel free to contact me if you have any questions. Time Spent With Patient Time: Total time managing care of this patient today ____ minutes. Procedures Date of Service Date of Service: 04/15/23
--- NOTE | 2023-04-15 15:57 | MHC.CM.PN ---
Per MD, Patient has been medically cleared for dc to SNF/[facility] today. Patient has Metabolic Encephalopathy; CM spoke with Primary Contact/Sister/Coco @ [phone] and addressed IMM(Original will be mailed certified letter to Coco and a copy has been placed on the chart). Per Coco's choice, Patient will dc to [facility] today at 6PM via [facility].
[2023-04-15 16:18] LABS: Glucose, Whole Blood 162 mg/dL (60-115)
--- NOTE | 2023-04-15 16:33 | P.DS_ITS ---
DS: Providers Provider Date of Service: 04/15/23 Date of admission: 04/07/23 00:55 Date of discharge: 04/15/23 Primary care physician: Dilia Vernon MD Consults: 04/15/23 08:15 Consult to Cardiology Routine Consulting Provider: [facility] Reason for consultation: afib Has provider been notified: No Attending physician on discharge: Magi West Discharging clinician: Magi West DS: Diagnosis Discharge Diagnosis (1) Atrial flutter with rapid ventricular response: Status: Acute DS: Summary Hospital Course Hospital Course: ?Patient was transfer [facility] after her son had found her on the floor status post fall and complaining of being drowsy , she appeared to be confused but complained of right-sided chest wall discomfort and abdominal discomfort.? Patient has underlying history of COPD and is O2 dependent at 2 L and sick cannula, history of leg edema on Lasix, hypothyroidism, anxiety, chronic constipation among others. During the ER workup, the patient's laboratories are overall unremarkable, including a normal lactic acid of 1.0. ?she had a trauma survey including cervical spine, head, chest, abdomen CT all of which are unremarkable for acute pathology.? She does have chronic lung nodules which according to report are the same size as they have had been on prior studies. ? ? Her initial blood gas showed a pH of 7.5, pCO2 of 60, PO2 175, HC03 of 48; is reported that her mental status was a +O x3 however he was suggested to keep her on BiPAP for a couple more hours, she had received some nebulizations and had been sleeping comfortably.? Patient did receive Levaquin x1 but started to develop a allergic reaction complaining of itching and it was noted that she had hives.? The patient received Solu-Medrol, Pepcid and Benadryl., subsequently about 6 hours later, the patient's mental status changed or worsen to the point that she was not able to communicate and was found to be obtunded the emergency room; her blood gas at 09:00 o'clock shows pH of 7.33, pCO2 of 95, PO2 85, HC03 50 and a base excess of 18.? Patient was placed on BiPAP and blood gas was recheck at 3 hours later without much improvement of her numbers as well as her mental status.? At this point, we were called to admit the patient to the ICU. hospital course: Patient was admitted to the ICU for status asthmaticus-intubated, receives steroids: Seem improved afterwards-currently on nebs, continue Breo, taper oxygen and steroids in rehab. In addition as per chart review patient had new onset a flutter-converted to sinus rhythm, echo EF is around 70%. Currently heart rate is controlled without rate control medications. Added Eliquis. History of diastolic CHF: Patient losartan dose was adjusted to 25 mg daily, in addition Lasix adjusted to 40 mg, continue spironolactone, further use of metolazone needs to be decided out patiently see . Follow-up with primary public health sanitarian technician outpatient. Physical deconditioning: Seen by PT recommended rehab. Patient had Vazquez in the ICU : Vazquez removed yesterday, has mild urinary retention, added Flomax,monitor PVRs in rehab, if continue to have urinary retention consider outpatient urology evaluation. chest imaging :Multiple lung masses are essentially stable. No new lung masses seen. Abnormal mediastinal adenopathy is stable. There is no rib fractures are thoracic spine fracture. As per pulmonary note from 02/20/23: Biopsy with bronchoscopy seems to be negative outpatient Follow-up with Pulmonary out patiently for further workup if needed. Solitary liver lesion appears stable unchanhed from her previous Ct scan: The edema follow-up outpatient with PCP. Above management discussed with the patient in detail length with the help of child development assistant and she understand and in agreement with the above plan. plan: Please continue asthma management with inhalers, Breo, taper steroids and oxygen. Patient losartan adjusted to 25 mg daily ,lasix adjusted to 40 mg daily and spironolactone. mild urinary retention, added Flomax,monitor PVRs in rehab, if continue to have urinary retention consider outpatient urology evaluation. Follow-up with Pulmonary and PCP for above chest CT findings. Time Spent with Patient Time attestation: Total time managing care of this patient today ____ minutes. Discharge coordination time: Greater than 30 minutes Quality: Safe Use of Opioids Does Pt have an Active Cancer Diagnosis on the Problem List?: No Quality: Stroke Does the patient have a stroke diagnosis?: No Physical Exam Vital Signs: Vital Signs: Last Vital Signs Temp 98.1 F 04/15/23 15:52 Pulse 62 04/15/23 15:53 Resp 16 04/15/23 15:53 BP 127/62 04/15/23 15:52 Pulse Ox 94 04/15/23 15:52 O2 Del Method Nasal Cannula 04/15/23 15:52 O2 Flow Rate 2 04/15/23 15:52 FiO2 28 04/13/23 13:00 Oxygen Flow Rate 2 04/06/23 13:41 BMI result Body Mass Index 42.5 Constitutional : Awake, interactive, not in distress Neck : Normal inspection, Supple Cardiovascular : RRR, no JVP, trace bilateral lower extremity edema Respiratory :? air entry fair ,? no crackles, fine scattered wheezes Gastrointestinal:? soft, Normal bowel sounds, Non tender,bs present. Skin : Warm, Dry Neurological : Alert & oriented x3, No focal deficit DS: Data Data Completed and Pending Labs on day of discharge: Laboratory Results - last 24 hr 04/14/23 04/15/23 04/15/23 19:41 06:02 06:02 WBC 12.5 H RBC 4.72 Hgb 12.9 Hct 43.3 MCV 91.7 MCH 27.3 MCHC 29.8 L RDW 16.5 H Plt Count 264 MPV 9.6 Absolute Nucleated RBC 0.000 Nucleated RBC % (auto) 0.0 Sodium 141 Potassium 3.7 Chloride 106 Carbon Dioxide 27 Anion Gap 12 BUN 18 H Creatinine 0.56 Estim Creat Clear Calc 115.3 Estimated GFR > 60 POC Glucose 171 H Random Glucose 90 Calcium 9.9 04/15/23 04/15/23 04/15/23 07:12 11:25 16:10 WBC RBC Hgb Hct MCV MCH MCHC RDW Plt Count MPV Absolute Nucleated RBC Nucleated RBC % (auto) Sodium Potassium Chloride Carbon Dioxide Anion Gap BUN Creatinine Estim Creat Clear Calc Estimated GFR POC Glucose 98 188 H 162 H Random Glucose Calcium Imaging Chest x-ray: Radiologist's impression: ITS Impressions Cervical Spine CT 04/06/23 15:50 IMPRESSION: No acute intracranial process seen. No acute fracture, dislocation or subluxation seen in cervical spine. Head CT 04/06/23 15:50 IMPRESSION: No acute intracranial process seen. No acute fracture, dislocation or subluxation seen in cervical spine. Abdomen/Pelvis CT 04/06/23 15:51 IMPRESSION: Multiple lung masses are essentially stable. No new lung masses seen. Abnormal mediastinal adenopathy is stable. There is no rib fractures are thoracic spine fracture. Solitary liver lesion, hepatomegaly, cholecystectomy appears stable. Colonic diverticulosis without diverticulitis. Umbilical hernia. These are stable as well. There is right inguinal lymphadenopathy with enlarged right lymph node increased since the last exam [address] 04/06/23 15:52 IMPRESSION: Multiple lung masses are essentially stable. No new lung masses seen. Abnormal mediastinal adenopathy is stable. There is no rib fractures are thoracic spine fracture. Solitary liver lesion, hepatomegaly, cholecystectomy appears stable. Colonic diverticulosis without diverticulitis. Umbilical hernia. These are stable as well. There is right inguinal lymphadenopathy with enlarged right lymph node increased since the last exam 2014 Chest X-Ray 04/07/23 10:31 IMPRESSION: - ET tube 3.7 cm above ludmila. - Left internal jugular central venous line in region of proximal right atrium. - No pneumothorax. Scattered pulmonary opacities similar to recent CT. Chest X-Ray 04/08/23 03:20 IMPRESSION: 1. Left subclavian central venous catheter tip in distal SVC. No pneumothorax. 2. Endotracheal tube and new enteric tube are in satisfactory position. 3. Right lung masses are noted. Discharge Plan Discharge Anticipated Discharge Date/Time: 04/15/23 16:10 Patient Disposition: er SNF Discharge Diagnosis: Artery flutter, status asthmaticus,Physical deconditioning Referrals: [facility] [place] [Outside] - 1 Week Dilia Vernon MD [Primary Care Provider] - 1 Week Discharge Medications: New tamsulosin 0.4 mg Capsule 0.4 mg PO BEDTIME Qty: 1 0RF Eliquis 5 mg Tablet 5 mg PO BID Qty: 60 0RF spironolactone 25 mg Tablet 25 mg PO DAILY Qty: 30 0RF Protocol: Hold for SBP< HOLD for SBP < : 90 losartan 25 mg Tablet 25 mg PO DAILY Qty: 30 0RF Protocol: Hold for SBP< HOLD for SBP < : 90 ipratropium-albuterol 0.5 mg-3 mg(2.5 mg base)/3 mL Solution For Nebulization 3 ml inhalation RQ4H Qty: 1 0RF prednisone 10 mg tablet See Taper PO DIRECTED Qty: 1 0RF Taper: Prednisone 40 mg daily for 3 Days and 0 Hour 30 mg daily for 3 Days and 0 Hour 20 mg daily for 3 Days and 0 Hour 10 mg daily for 3 Days and 0 Hour Rx Instructions: see taper instructions Continued fluticasone propion-salmeterol 250-50 mcg/dose blister with device 1 inh inhalation BID Qty: 60 3RF cyanocobalamin (vitamin B-12) [Vitamin B-12] 1,000 mcg tablet 1 tab PO DAILY potassium chloride 20 mEq tablet extended release 2 tab PO DAILY paliperidone palmitate 234 mg/1.5 mL syringe 234 mg IM Q28D sertraline 50 mg tablet 50 mg PO DAILY levothyroxine 100 mcg tablet 100 mcg PO DAILY@0630 docusate sodium 100 mg capsule 100 mg PO BID PRN (Reason: Constipation) aspirin 81 mg tablet,delayed release (DR/EC) 81 mg PO DAILY albuterol sulfate [Ventolin HFA] 90 mcg/actuation HFA aerosol inhaler 2 puff inhalation Q4-6H PRN (Reason: Shortness Of Breath) loratadine [Loradamed] 10 mg tablet 10 mg PO DAILY Changed furosemide 40 mg tablet 40 mg PO DAILY Qty: 30 0RF Discontinued metolazone 5 mg Tablet 5 mg PO DAILY PRN (Reason: GREATER THAN 3 POUND WT GAIN IN 1 DAY) Discharge Orders: Discharge Order (Routine); Ordered 04/15/23 Ordered By: Magi West Diet: Advance to usual diet Activity on Discharge: As tolerated Stand Alone Forms: Patient Portal Discharge page Care Plan Goals: Patient was admitted to the ICU for status asthmaticus-intubated, receives steroids: Seem improved afterwards-currently on nebs, continue Breo, taper oxygen and steroids in rehab. In addition as per chart review patient had new onset a flutter-converted to sinus rhythm, echo EF is around 70%. Currently heart rate is controlled without rate control medications. Added Eliquis. History of diastolic CHF: Patient losartan dose was adjusted to 25 mg daily, in addition Lasix adjusted to 40 mg, continue spironolactone, further use of metolazone needs to be decided out patiently see . Follow-up with primary public health sanitarian technician outpatient. Physical deconditioning: Seen by PT recommended rehab. Patient had Vazquez in the ICU : Vazquez removed yesterday, has mild urinary retention, added Flomax,monitor PVRs in rehab, if continue to have urinary retention consider outpatient urology evaluation. MONITER bmp and tsh in 1 week Above management discussed with the patient in detail length with the help of child development assistant and she understand and in agreement with the above plan. Health Concerns: As above. Plan of Treatment: As above. Assessment: As above. Discharge Date/Time: 04/15/23 18:45
[2023-04-15 17:09] LABS: COVID-19 Test Negative (Negative); IDNOW Serial# 6674DD1D
--- NOTE | 2023-04-15 17:29 | PC.NURSE ---
PT. ROBERTS PULLED THIS AM PER AT 0600. PT. DUE TO VOID AT 1200. AT 1200 PT. HAD NO URINE OUTPUT, BLADDER SCAN OBTAINED SHOWING 490 ML. NOTIFIED AND STRAIGHT CATH. ORDERED, 500 MLS TAKEN OUT FROM STRAIGHT CATH.
== END 2023-04-15 18:45 | disposition skilled nursing facility (03) | DRG 207 ==
LOC: HO.ED 04-07 00:51 → HO.EDOVER 04-07 00:58 → HO.ICU 04-07 01:32 → HO.IMC 04-13 20:45
PROVIDERS: Internal Medicine Cardiovascular Disease; Nurse Practitioner Family; Physician Assistant; Registered Nurse Community Health; Student in an Organized Health Care Education/Training Program; Admitting Provider Physician Assistant Medical; Emergency Provider Emergency Medicine; PCP General Practice; Visit Provider Internal Medicine
DX: J96.01 Acute respiratory failure with hypoxia (principal); J44.1 Chronic obstructive pulmonary disease with (acute) exacerbation; E66.2 Morbid (severe) obesity with alveolar hypoventilation; Z68.41 Body mass index [BMI] 40.0-44.9, adult; F05 Delirium due to known physiological condition; J45.902 Unspecified asthma with status asthmaticus; E87.0 Hyperosmolality and hypernatremia; I50.32 Chronic diastolic (congestive) heart failure; I48.92 Unspecified atrial flutter; J96.02 Acute respiratory failure with hypercapnia; I49.5 Sick sinus syndrome; L50.0 Allergic urticaria; T36.8X5A Adverse effect of other systemic antibiotics, initial encounter; E03.9 Hypothyroidism, unspecified; K59.09 Other constipation; Z99.81 Dependence on supplemental oxygen; Z20.822 Contact with and (suspected) exposure to COVID-19; Z79.51 Long term (current) use of inhaled steroids; Z79.890 Hormone replacement therapy; Z79.899 Other long term (current) drug therapy
CPT/HCPCS: 36415; 70450; 71045; 71260; 72125; 74177; 80048; 80053; 80307; 81003; 82040; 82550; 82803; 82947; 83605; 83735; 83880; 84100; 84443; 84484; 85025; 85027; 85610; 85652; 86140; 86617; 86618; 87040; 87070; 87205; 87633; 87635; 93005; 93306; 94002; 94003; 94640; 94660; 97162; 97530; 99285; C1758; J0171; J0696; J1170; J1200; J1643; J1940; J1956; J2060; J2250; J2920; J2930; J3010; J3475; P9047; Q9957; Q9967

== ENCOUNTER 2023-05-08 09:33 | Outpatient (REF) | payer MEDICARE, MEDICAID, SELFPAY ==
[2023-05-08 10:49] LABS: Venous Blood Gas Refer to POC result
[2023-05-08 10:54] LABS: VBG pCO2 76 mmHg; VBG pH 7.35 (7.32-7.43)
[2023-05-08 10:55] LABS: VBG Base Excess 13.1 mmol/L; VBG HCO3 42 mmol/L (22-26); VBG pO2 39 mmHg
== END 2023-05-08 09:34 | disposition home or self-care (01) ==
LOC: HO.LAB 09:33
PROVIDERS: PCP General Practice; Visit Provider Internal Medicine
DX: J44.9 Chronic obstructive pulmonary disease, unspecified (principal); J96.92 Respiratory failure, unspecified with hypercapnia; J98.4 Other disorders of lung; G47.33 Obstructive sleep apnea (adult) (pediatric)
CPT/HCPCS: 36415; 82803; 99212

== ENCOUNTER 2023-05-08 09:33 | Outpatient (AMB) | payer MEDICARE, MEDICAID, SELFPAY ==
[2023-05-08 09:55] VITALS: BP 110/50; PULSE 93; O2SAT 95; BMI 39.0
--- NOTE | 2023-05-08 09:55 | MHC.OFFVIS ---
Intake Vital Signs 05/08/23 09:55 Height 5 ft 2 in Weight 213 lb BMI 39.0 BP 110/50 L Blood Pressure Location Lt brachial Position Standing Pulse 93 Pulse Source Pulse Oximeter Pulse Oximetry (%) 95 Oxygen Delivery Method Nasal Cannula Oxygen Flow Rate 2 Intake Visit Reasons: Wheezing Intake Note: pt is here for follow up and states she feels good. just little coughing, some wheeze. Neuropsychiatrist Name: [id number] indra Allergies levofloxacin [From Levaquin] Allergy (Intermediate, Verified 05/08/23 10:25) HIVES Penicillins Adverse Reaction (Severe, Verified 05/08/23 10:25) FAINTS Medication List - Last Reconciled 05/08/23 by Michael Oneill MD albuterol sulfate 90 mcg/actuation (Ventolin HFA) 2 puffs inhalation Q4-6H PRN apixaban (Eliquis) 5 mg PO BID aspirin 81 mg PO DAILY cyanocobalamin (vitamin B-12) (Vitamin B-12) 1 tab PO DAILY docusate sodium 100 mg PO BID PRN fluticasone propion-salmeterol 250-50 mcg/dose 1 inh inhalation BID furosemide 40 mg PO DAILY ipratropium-albuterol 0.5 mg-3 mg(2.5 mg base)/3 mL 3 mL inhalation RQ4H levothyroxine 100 mcg PO DAILY@0630 loratadine (Loradamed) 10 mg PO DAILY losartan 25 mg See Protocol PO DAILY paliperidone palmitate 234 mg IM Q28D potassium chloride ER 2 tabs PO DAILY sertraline 50 mg PO DAILY spironolactone 25 mg See Protocol PO DAILY tamsulosin 0.4 mg PO BEDTIME Do you need a note to return to daycare/school/sports/work: No HPI Wheezing HPI Details 62 YEARS OLD FEMALE , KINYARWANDA SPEAKING, INTERVIEWED AND EXAMINED WITH THE HELP OF A PROFESSIONAL TWINE WINDER. SHE WAS HOSPITALIZED 4 WEEKS AGO BECAUSE OF ACUTE EXACERBATION OF COPD AND ATRIAL FIBRILLATION. SHE HAS COMPLETED THE TAPERING COURSE OF PREDNISONE. CONTINUES TO BE ON OXYGEN 2 L/MINUTE. USING HER INHALER AND THE NEBULIZER REGULARLY. SHE IS A KNOWN CASE OF OBSTRUCTIVE SLEEP APNEA WITH NOCTURNAL HYPOXEMIA. SHE IS NOT ABLE TO USE CPAP SO JUST USES THE OXYGEN 2 L/MINUTE AT NIGHT.. CLAIMS THAT SHE IS DOING WELL AND IS AT HER BASELINE AT THIS TIME. DOES HAVE MILD INTERMITTENT COUGH, DOES GET SHORT OF BREATH WHEN SHE WALKS AROUND. HOWEVER SHE IS MOSTLY IN THE HOUSE AND DOES NOT DO MUCH WALKING. [facility] Medical History COPD (chronic obstructive pulmonary disease) Hypoxemia Obesity FRANKI (obstructive sleep apnea) Pneumonia Restrictive lung disease Surgical History History of cholecystectomy Social History Household Members: Unknown / Unable to assess Housing: Unknown / Unable to assess Do you presently have visiting nurse or other home services: Yes Unable to assess alcohol history related to: Unknown Alcohol intake: never Patient Tobacco Use Status: Never used Tobacco service: No Review of Systems Const All systems reviewed & are unremarkable except as noted in HPI and below Eyes Reports no additional complaints ENT Reports no additional complaints Card Denies chest pain, Denies irregular heart rhythm and Denies leg edema Resp Reports as per HPI GI Reports no additional complaints Reports no additional complaints Musc Reports no additional complaints Skin/Breast Reports system reviewed and no additional complaints, except as documented Neuro Reports no additional complaints Psych Reports anxiety and Reports depression Endo Reports no additional complaints Physical Exam Vital Signs: Last Vital Signs Pulse 93 05/08/23 09:55 BP 110/50 L 05/08/23 09:55 Pulse Ox 95 05/08/23 09:55 Oxygen Delivery Method Nasal Cannula 05/08/23 09:55 Oxygen Flow Rate 2 05/08/23 09:55 BMI result Body Mass Index 39.0 Const Other: Looks grossly obese General: cooperative, comfortable, no acute distress, alert and awake Orientation/consciousness: patient oriented x3 HEENT Head: Yes normal to inspection General nose exam: No nasal polyps present and No nasal discharge present Face and sinus: Yes sinuses nontender Mouth: oropharynx abnormals (Oropharynx is very crowded, Mallampati 4) Throat: Yes posterior oropharynx normal Eyes General: appearance normal, both eyes and all related structures Neck Neck: Yes normal visual inspection, Yes no lymphadenopathy, Yes trachea midline and Yes no JVD Thyroid: Thyroid normal Chest Chest palpation & inspection: normal inspection of the chest, normal palpation of entire chest wall and no tenderness Resp Other: Percussion note is not perceptible because of the obese chest wall. Breath sounds are very distant on both sides especially over the basilar areas. No wheezes or crepitations are heard. Cardio Palpation: normal PMI Rate: regular rate Rhythm: regular rhythm Heart sounds: no gallops and no murmurs GI Palpation (GI): Soft to palpation, nontender, No hepatosplenomegaly present, no masses and Other GI palpation findings present (Abdomen is obese and protuberant) Auscultation: normal bowel sounds Back/Spine/Pelvis Thoracic/Lumbar Spine: thoracic and lumbar spine normal to inspection Skin General skin exam: no rashes or lesions noted and dry skin Neuro General: patient oriented x3 and no focal motor deficits Cranial nerves: Yes CN's II-XII intact bilaterally Extrem General: Yes normal to inspection, Yes no clubbing, cyanosis or edema and Yes no calf tenderness Psych Appearance: grossly normal and other (Pleasant and quiet) Speech and movement: Normal speech and movement present Results Reviewed Results Reviewed: Medical records from the hospitalization in March 2023 are reviewed. Assessment & Plan Assessment & Plan (1) COPD (chronic obstructive pulmonary disease): Comment: Mild to moderate , controlled with current Med . Recent acute exacerbation seems to have resolved. TX: ADVAIR 250-50 one inh bid OK to resume . DUONEB UPDRAFTs Q 6 hours p.r.n. ( may use up to 3 times a day ) Ventolin 2 puffs q 4-6 Hrs PRN when outdoors. Code(s): J44.9 - Chronic obstructive pulmonary disease, unspecified (2) Restrictive lung disease: Comment: This is related to her obesity , It can improve with Weight Reduction and she is encouraged to lose some weight, which is not expected in her case . Advised to continue doing deep breathing exercises Q 2 hours while awake . Code(s): J98.4 - Other disorders of lung (3) FRANKI (obstructive sleep apnea): Comment: Mild , and not able to use CPAP . doing OK without CPAP , Uses O2 2 L/mt at night Code(s): G47.33 - Obstructive sleep apnea (adult) (pediatric) (4) Hypercapnic respiratory failure: Comment: Patient has chronic respiratory failure with hypoxemia and mild hypercapnia. VENOUS BLOOD GAS STUDY ORDERED. Patient is advised to continue using O2 2 L/minute, 24 hours a day, including during sleep. Code(s): J96.92 - Respiratory failure, unspecified with hypercapnia Orders: Orders Cord Venous Blood Gas Today G47.33 - Obstructive sleep apnea (adult) (pediatric), J44.9 - Chronic obstructive pulmonary disease, unspecified, J96.92 - Respiratory failure, unspecified with hypercapnia Coding Level of Care Code Est Pt Level 4 (34379) Diagnoses COPD (chronic obstructive pulmonary disease) J44.9 Restrictive lung disease J98.4 FRANKI (obstructive sleep apnea) G47.33 Hypercapnic respiratory failure J96.92
== END 2023-05-08 10:25 | disposition home or self-care (01) ==
PROVIDERS: PCP General Practice; Visit Provider Internal Medicine
DX: J44.9 Chronic obstructive pulmonary disease, unspecified (principal); J98.4 Other disorders of lung; G47.33 Obstructive sleep apnea (adult) (pediatric); J96.92 Respiratory failure, unspecified with hypercapnia
CPT/HCPCS: 99214

== ENCOUNTER 2023-05-26 15:37 | Outpatient (REF) | payer MEDICARE, MEDICAID, SELFPAY ==
[2023-05-26 17:07] LABS: Anion Gap 10 (12-20); Blood Urea Nitrogen 8 mg/dL (9-16); Calcium 9.1 mg/dL (8.4-10.2); Carbon Dioxide 33 mmol/L (22-29); Chloride 98 mmol/L (96-108); Estimated Glomerular Filt Rate > 60; Glucose Random 100 mg/dL (60-115); Potassium 3.8 mmol/L (3.3-5.1); Sodium 137 mmol/L (135-145)
== END 2023-05-26 15:38 | disposition home or self-care (01) ==
LOC: HO.HHCL 15:37
PROVIDERS: Visit Provider General Practice
DX: Z79.899 Other long term (current) drug therapy (principal)
CPT/HCPCS: 36415; 80048

== ENCOUNTER 2023-06-02 15:40 | Outpatient (REF) | payer MEDICARE, MEDICAID, SELFPAY | END 2023-06-02 15:41 | disposition home or self-care (01) | LOC: HO.MAMMO 15:40 | PROVIDERS: PCP General Practice; Visit Provider General Practice | DX: Z12.31 Encounter for screening mammogram for malignant neoplasm of breast (principal) | CPT/HCPCS: 77063; 77067 ==

== ENCOUNTER → 2023-06-02 15:45 | Outpatient (BNV) | payer MEDICARE, MEDICAID, SELFPAY | PROVIDERS: PCP General Practice; Visit Provider Radiology Diagnostic Radiology | DX: Z12.31 Encounter for screening mammogram for malignant neoplasm of breast (principal) | CPT/HCPCS: 77063; 77067 ==

== ENCOUNTER 2023-06-17 04:06 | Emergency (ER) | payer MEDICARE, MEDICAID, SELFPAY ==
--- NOTE | ~2023-06-17 | XR_ITS ---
EXAMINATION: XR CHEST CLINICAL INFORMATION: Respiratory failure. COMPARISON: 04/08/2023 TECHNIQUE: Frontal view of the chest was obtained. FINDINGS: The patient is rotated. The cardiac silhouette is obscured. There is an endotracheal tube seen at the level of the thoracic inlet. Diffuse bilateral infiltrates are noted. The bony structures and soft tissues are unremarkable. XR/XR chest 1V IMPRESSION: 1. Endotracheal tube at the thoracic inlet. 2. Diffuse infiltrates possibly extensive edema versus extensive pneumonia.
[2023-06-17 04:40] LABS: VBG Base Excess -0.7 mmol/L; VBG HCO3 26 mmol/L (22-26); VBG pCO2 54 mmHg; VBG pH 7.29 (7.32-7.43); VBG pO2 84 mmHg
[2023-06-17 04:43] LABS: INTERNATIONAL NORM RATIO 1.2 (0.9-1.1)
[2023-06-17 04:43] LABS: Venous Blood Gas Refer to POC result
[2023-06-17 04:54] LABS: Hematocrit 34.9 % (37.0-47.0); Hemoglobin 9.8 g/dl (12.0-16.0); Mean Corpuscular HGB Conc 28.1 g/dl (31.0-35.0); Mean Corpuscular Hemoglobin 29.2 pg (27.0-33.0); Mean Corpuscular Volume 103.9 fL (80.0-98.0); Mean Platelet Volume 9.4 fL (9.4-12.3); Platelet Count 203 X10*3/uL (160-400); Red Blood Count 3.36 X10*6/uL (4.20-5.50); Red Cell Distribution Width 18.8 % (11.0-16.0); White Blood Count 23.4 X10*3/uL (4.8-10.8)
[2023-06-17 04:59] LABS: Alanine Aminotransferase 70 U/L (0-31); Albumin Level 2.7 g/dL (3.5-5.0); Alkaline Phosphatase 88 U/L (39-117); Anion Gap 24 (12-20); Aspartate Amino Transferase 95 U/L (5-31); Bilirubin Direct 0.1 mg/dL (0.0-0.5); Bilirubin Total 0.3 mg/dL (0.0-1.0); Blood Urea Nitrogen 11 mg/dL (9-16); Calcium 8.5 mg/dL (8.4-10.2); Carbon Dioxide 23 mmol/L (22-29); Chloride 101 mmol/L (96-108); Estimated Glomerular Filt Rate > 60; Glucose Random 195 mg/dL (60-115); Potassium 4.4 mmol/L (3.3-5.1); Sodium 144 mmol/L (135-145); Total Protein 5.3 g/dL (6.5-8.0)
[2023-06-17 05:01] LABS: Troponin-I High Sensitivity 11.3 ng/L (<3.5-17.0)
[2023-06-17 05:17] LABS: Neutrophils Percent Manual 63 % (45-73)
[2023-06-17 05:20] LABS: Band Neutrophils Percent 14 % (3-5); Lymphocytes Percent Manual 17 % (20-40); Metamyelocytes Absolute 0.5 X10*3/uL; Metamyelocytes Percent 2 %; Monocytes Absolute Manual 0.7 X10*3/uL (0.1-1.2); Monocytes Percent Manual 3 % (2-11); Myelocytes Absolute 0.2 X10*/uL; Myelocytes Percent 1 %
[2023-06-17 05:21] LABS: Macrocytosis 1+ (5-14) /OIF; RBC Morphology NOTED
[2023-06-17 05:22] LABS: Platelet Estimate NORMAL (NORMAL); Platelet Morphology Comment NORMAL
[2023-06-17 05:24] LABS: Polychromasia 1+ (0-2) /OIF
[2023-06-17 05:30] LABS: Influenza A PCR NEGATIVE (Negative); Influenza B PCR NEGATIVE (Negative); Resp Syncy Virus RNA Qual PCR NEGATIVE (Negative); SARS COV2 PCR INHOUSE NEGATIVE (Negative)
[2023-06-17 05:43] VITALS: PULSE 0; BMI 40.9
--- NOTE | 2023-06-17 06:01 | PC.NURSE ---
Pt presented to ED via EMS after an unwitnessed fall at home. Pt was found unresponsive and pulseless, [place] PD started compressions at 0325. 0401 EMS arrived at ED, CPR continued. 12 rounds epi 5 rounds bicarb ROSC obtained at 0417, lost at 0430. CPR continued. Levophed started. 2nd ROSC obtained at 0440, lost at 0452. CPR continued. Time of : 0502. Please refer to code sheet and MD notes for further detail.
--- NOTE | 2023-06-17 06:26 | PC.NURSE ---
Spoke with [facility] at 0600. Donor bank will accept pt for potential tissue donation. Rep asked that family not be notified. Rep stated post-mortem care can take place as usual, pending biomedical photographer decision.
--- NOTE | 2023-06-17 06:29 | MHC.EDTECH ---
Call out to Division Merchandise Manager @[phone]. Gave demographics and passed call to .
--- NOTE | 2023-06-17 06:46 | PC.NURSE ---
Spoke with family member to inform them that center medical and lab director declined the case. Family did not have a home at time of call, I instructed to call back when they decide on a home.
--- NOTE | 2023-06-17 07:20 | ED_ITS ---
HPI - CPR General Chief Complaint: Cardiac Arrest/CPR Stated Complaint: Cardiac Arrest Time Seen by Provider: 06/17/23 04:25 Source: EMS Mode of arrival: EMS Limitations: other History of Present Illness HPI narrative: Patient comes to the emergency room via BLS in cardiac arrest. The ENTs report that the family /patient's nephew her that the patient fell to the floor around 03:25. When then if you arrive to the bathroom, patient was awake, stated she was not feeling well, almost immediately patient collapsed to the ground. Patient's nephew started doing CPR and yelled for family members to call 911. EMS took over CPR. Patient arrived to the emergency room at 04:01, patient was in asystole, no pulse. Immediately bicarb and epinephrine were administered. -the patient's family reported that yesterday the patient went to see her primary care physician, seems that the patient was having some cough, URI symptoms. The family reports that during the visit, the patient seemed to be doing fairly well, there was not concerned about low oxygen saturation, patient seems at baseline according to the family. To their knowledge, the patient did not complain of chest pain. -due to the history of fall, on arrival, patient's C-collar was applied Related Data Home Medications Medication Instructions Recorded Confirmed aspirin 81 mg tablet,delayed 81 mg PO DAILY 08/08/20 05/08/23 release docusate sodium 100 mg capsule 100 mg PO BID PRN Constipation 08/08/20 05/08/23 levothyroxine 100 mcg tablet 100 mcg PO DAILY@0630 08/08/20 05/08/23 paliperidone palmitate 234 mg/1.5 234 mg IM Q28D 08/08/20 05/08/23 mL intramuscular syringe sertraline 50 mg tablet 50 mg PO DAILY 08/08/20 05/08/23 albuterol sulfate 90 mcg/actuation 2 puff inhalation Q4-6H PRN 11/12/21 05/08/23 aerosol inhaler (Ventolin HFA) Shortness Of Breath cyanocobalamin (vitamin B-12) 1 tab PO DAILY 10/28/22 05/08/23 1,000 mcg tablet (Vitamin B-12) potassium chloride 20 mEq 2 tab PO DAILY 10/28/22 05/08/23 tablet,extended release loratadine 10 mg tablet (Loradamed) 10 mg PO DAILY 12/16/22 05/08/23 Previous Rx's Medication Instructions Recorded fluticasone 250 mcg-salmeterol 50 1 inh inhalation BID #60 ea 02/05/22 mcg/dose blistr powdr for inhalation apixaban 5 mg tablet (Eliquis) 5 mg PO BID #60 tabs 04/15/23 furosemide 40 mg tablet 40 mg PO DAILY #30 tabs 04/15/23 ipratropium 0.5 mg-albuterol 3 mg 3 ml inhalation RQ4H #1 mL 04/15/23 (2.5 mg base)/3 mL nebulization soln losartan 25 mg tablet 25 mg PO DAILY #30 tabs 04/15/23 spironolactone 25 mg tablet 25 mg PO DAILY #30 tabs 04/15/23 tamsulosin 0.4 mg capsule 0.4 mg PO BEDTIME #1 cap 04/15/23 acetazolamide 250 mg tablet 250 mg PO DAILY RESP. FAILURE 30 05/08/23 days #30 tabs Allergies Allergy/AdvReac Type Severity Reaction Status Date / Time levofloxacin [From Levaquin] Allergy Intermediate HIVES Verified 05/08/23 10:25 Penicillins AdvReac Severe FAINTS Verified 05/08/23 10:25 Review of Systems Review of Systems: Yes Unobtainable due to mental condition [facility] Past Medical History Medical History COPD (chronic obstructive pulmonary disease) Hypoxemia Obesity FRANKI (obstructive sleep apnea) Pneumonia Restrictive lung disease Surgical History History of cholecystectomy Social History Social History Household Members: Unknown / Unable to assess Housing: Unknown / Unable to assess Do you presently have visiting nurse or other home services: Yes Unable to assess alcohol history related to: Unknown Alcohol intake: never Patient Tobacco Use Status: Never used Tobacco Advance Directives: No Advance Directives Information Provided: No service: No Physical Exam Vital Signs: Vital Signs: Last Vital Signs Pulse 0 L 06/17/23 05:43 BMI result Body Mass Index 40.9 Const: Other: Appearance: Unresponsive Eyes: Pupils equal, dilated, round , and reactive to light ENT: There is a very large amount of blood in the oropharynx Neck: Normal inspection. Neck supple. No lymph nodes noted. No crepitus CVS: CPR in progress Respiratory: Ventilated by Ambu bag Abdomen: Soft and distended Skin: There is an L-shaped laceration to the scalp, mottled cold skin Extremities: No edema Neuro: Unresponsive Psych: Unresponsive Course Course Course Narrative: -patient was intubated in the emergency room. This was an abnormal intubation. I was able to clearly see the vocal cords and pass the ET tube. However, after a few cm of passing the vocal cords, it was very hard to pass the tube. -overall, patient received 2 rounds of epinephrine, 5 rounds of bicarb. -CPR was started by police department at 03:25 -we did get Delta at 04:17 here in the emergency room, lost pulse at 04:30. After 10 minutes of CPR, he regained Delta again at 04:40, 12 minutes later, at 04:52, patient lost pulse, time of was called at 05:02 -we called the medical collections specialist, the case was declined, case number to [id number] -patient's family informed, at bedside Medical Decision Making Medical Decision Making [facility] Narrative: -when we got Ross the 1st time, patient had a strong pulse, EKG interpretation: Atrial fibrillation, heart rate 57, no ST segment depression or elevation, T- wave inversion, QTC 439 Differential Diagnosis Differential Diagnoses: The differential diagnosis associated with the presentation includes (Cardiac arrest, arrhythmia, respiratory failure, trauma) Admission/Observation Consideration of admission/observation: Escalation of care including admissio n/observation considered (When we got ROSC, admission to ICU/transferred to [facility] considered) Lab Data [facility] Lab Attestation statement: I reviewed the patient's lab results. 06/17/23 04:49 06/17/23 04:30 Labs: Lab Results 06/17/23 06/17/23 06/17/23 Range/Units 04:29 04:30 04:30 WBC (4.8-10.8) X10*3/uL RBC (4.20-5.50) X10*6/uL Hgb (12.0-16.0) g/dl Hct (37.0-47.0) % MCV (80.0-98.0) fL MCH (27.0-33.0) pg MCHC (31.0-35.0) g/dl RDW (11.0-16.0) % Plt Count (160-400) X10*3/uL MPV (9.4-12.3) fL Immature Gran % (Auto) Neut % (Auto) Lymph % (Auto) [place] % (Auto) Eos % (Auto) Baso % (Auto) Lymph # (Auto) [place] # (Auto) Eos # (Auto) Baso # (Auto) Abs Immat Gran (auto) Absolute Neuts (auto) Absolute Nucleated RBC (0.0-0.012) X10*3/uL Nucleated RBC % (auto) (0.0-0.2) /100WBC Neutrophils % (Manual) (45-73) % Band Neutrophils % (3-5) % Lymphocytes % (Manual) (20-40) % Monocytes % (Manual) (2-11) % Metamyelocytes % % Myelocytes % % Abs Neuts (Manual) (2.0-8.3) X10*3/uL Lymphocytes # (Manual) (1.2-4.9) X10*3/uL Monocytes # (Manual) (0.1-1.2) X10*3/uL Metamyelocytes # X10*3/uL Myelocytes # X10*/uL Platelet Estimate (NORMAL) Plt Morphology Comment RBC Morphology Polychromasia /OIF Macrocytosis /OIF PT 15.0 H (11.1-13.3) SEC INR 1.2 H (0.9-1.1) VBG pH (7.32-7.43) VBG pCO2 mmHg VBG pO2 mmHg VBG HCO3 (22-26) mmol/L VBG O2 Saturation % VBG Base Excess mmol/L Sodium 144 (135-145) mmol/L Potassium 4.4 (3.3-5.1) mmol/L Chloride 101 (96-108) mmol/L Carbon Dioxide 23 (22-29) mmol/L Anion Gap 24 H (12-20) BUN 11 (9-16) mg/dL Creatinine 0.81 (0.5-1.4) mg/dL Estim Creat Clear Calc TNP Estimated GFR > 60 Random Glucose 195 H (60-115) mg/dL Calcium 8.5 D (8.4-10.2) mg/dL Total Bilirubin 0.3 (0.0-1.0) mg/dL Direct Bilirubin 0.1 (0.0-0.5) mg/dL AST 95 H (5-31) U/L ALT 70 H (0-31) U/L Alkaline Phosphatase 88 (39-117) U/L Troponin I High Sens 11.3 D (<3.5-17.0) ng/L Total Protein 5.3 L (6.5-8.0) g/dL Albumin 2.7 L (3.5-5.0) g/dL Influenza Type A (PCR) (Negative) Influenza Type B (PCR) (Negative) RSV RNA Qual (PCR) (Negative) SARS-CoV-2 RNA (RT-PCR) (Negative) 06/17/23 06/17/23 06/17/23 Range/Units 04:36 04:47 04:49 WBC 23.4 H (4.8-10.8) X10*3/uL RBC 3.36 L D (4.20-5.50) X10*6/uL Hgb 9.8 L D (12.0-16.0) g/dl Hct 34.9 L (37.0-47.0) % MCV 103.9 H (80.0-98.0) fL MCH 29.2 (27.0-33.0) pg MCHC 28.1 L (31.0-35.0) g/dl RDW 18.8 H (11.0-16.0) % Plt Count 203 (160-400) X10*3/uL MPV 9.4 (9.4-12.3) fL Immature Gran % (Auto) Cancelled Neut % (Auto) Cancelled Lymph % (Auto) Cancelled [place] % (Auto) Cancelled Eos % (Auto) Cancelled Baso % (Auto) Cancelled Lymph # (Auto) Cancelled [place] # (Auto) Cancelled Eos # (Auto) Cancelled Baso # (Auto) Cancelled Abs Immat Gran (auto) Cancelled Absolute Neuts (auto) Cancelled Absolute Nucleated RBC 0.230 H (0.0-0.012) X10*3/uL Nucleated RBC % (auto) 1.0 H (0.0-0.2) /100WBC Neutrophils % (Manual) 63 (45-73) % Band Neutrophils % 14 H (3-5) % Lymphocytes % (Manual) 17 L (20-40) % Monocytes % (Manual) 3 (2-11) % Metamyelocytes % 2 % Myelocytes % 1 % Abs Neuts (Manual) 18.0 H (2.0-8.3) X10*3/uL Lymphocytes # (Manual) 4.0 (1.2-4.9) X10*3/uL Monocytes # (Manual) 0.7 (0.1-1.2) X10*3/uL Metamyelocytes # 0.5 X10*3/uL Myelocytes # 0.2 X10*/uL Platelet Estimate NORMAL (NORMAL) Plt Morphology Comment NORMAL RBC Morphology NOTED Polychromasia 1+ (0-2) /OIF Macrocytosis 1+ (5-14) /OIF PT (11.1-13.3) SEC INR (0.9-1.1) VBG pH 7.29 L (7.32-7.43) VBG pCO2 54 mmHg VBG pO2 84 mmHg VBG HCO3 26 (22-26) mmol/L VBG O2 Saturation 96.0 % VBG Base Excess -0.7 mmol/L Sodium (135-145) mmol/L Potassium (3.3-5.1) mmol/L Chloride (96-108) mmol/L Carbon Dioxide (22-29) mmol/L Anion Gap (12-20) BUN (9-16) mg/dL Creatinine (0.5-1.4) mg/dL Estim Creat Clear Calc Estimated GFR Random Glucose (60-115) mg/dL Calcium (8.4-10.2) mg/dL Total Bilirubin (0.0-1.0) mg/dL Direct Bilirubin (0.0-0.5) mg/dL AST (5-31) U/L ALT (0-31) U/L Alkaline Phosphatase (39-117) U/L Troponin I High Sens (<3.5-17.0) ng/L Total Protein (6.5-8.0) g/dL Albumin (3.5-5.0) g/dL Influenza Type A (PCR) NEGATIVE (Negative) Influenza Type B (PCR) NEGATIVE (Negative) RSV RNA Qual (PCR) NEGATIVE (Negative) SARS-CoV-2 RNA (RT-PCR) NEGATIVE (Negative) Procedures Intubation sedative: none Laryngoscope: other (GlideScope) ET Tube Size: 7 ET Tube Uncuffed: No Tube Secured Depth (cm): 23 Tube Secured Location: lips Tube Placement Confirmation: visualized tube passing through cords, equal breath sounds bilaterally and no breath sounds over epigastrium Critical Care Time Critical Care Time Critical Care Time: Yes Total Critical Care Time: 60 Attestation: I have personally provided critical care time. Time includes review of lab data, radiology results, discussion with consultants, and monitoring for potential decompensation. Intervention performed as documented. Discharge Plan Discharge Clinical Impression: Cardiac arrest Patient Disposition: Date/Time: 06/17/23 05:02
[2023-06-17 08:43] LABS: Glucose, Whole Blood 217 mg/dL (60-115)
--- NOTE | 2023-06-17 09:09 | ECG_ITS ---
Test Reason : CARDIAC ARREST Blood Pressure : / mmHG Vent. Rate : 057 BPM Atrial Rate : 000 BPM P-R Int : 000 ms QRS Dur : 142 ms QT Int : 452 ms P-R-T Axes : 000 085 126 degrees QTc Int : 439 ms Atrial fibrillation with slow ventricular response with premature ventricular or aberrantly conducted complexes Right bundle branch block Abnormal ECG When compared with ECG of 06-APR-2023 16:33, Atrial fibrillation has replaced Sinus rhythm Right bundle branch block is now Present Referred By: Daysi Tavares Electronically Signed By:IRMA ROQUE
== END 2023-06-17 07:48 | disposition expired ==
PROVIDERS: Emergency Provider Emergency Medicine
DX: I46.9 Cardiac arrest, cause unspecified (principal); Z79.899 Other long term (current) drug therapy; Z20.822 Contact with and (suspected) exposure to COVID-19; Z20.828 Contact with and (suspected) exposure to other viral communicable diseases
CPT/HCPCS: 0241U; 31500; 36415; 51702; 71045; 80053; 82248; 82803; 82947; 84484; 85007; 85025; 85027; 85610; 93005; 96374; 96375; 96376; 99283; 99285; J0171; J0461